=== PATIENT | male | born 1990 | race Caucasian/White ===

== ENCOUNTER 2024-09-17 16:18 | Emergency (ER) | payer OTHER, SELFPAY ==
[2024-09-17 16:38] VITALS: BP 107/70; PULSE 78; TEMP 36.8; O2SAT 98; BMI 31.9
--- NOTE | 2024-09-17 17:53 | ED.BACK1 ---
Documented by User: [email or web address] Sullivan 09/17/24 18:01 HPI HPI - Back Pain/Injury General Chief Complaint: Back Pain/Injury Stated Complaint: BACK PAIN Time Seen by Provider: 09/17/24 17:17 Source: patient History of Present Illness HPI Narrative: Patient is a 33-year-old male presents to the ER for evaluation of low back pain. Patient states he has thrown out his back. 2-3 other times in his life. Patient notes this is the most painful and he has tried to let it rest for 6 days without relief. He denies any anterior abdominal pain. Patient states he was taking down a tree and raking earlier in the week a day or 2 before symptoms started. He denies any fall or trauma he denies any fever or recent illness. He denies any bowel or bladder incontinence or saddle paresthesias. He reports a few episodes of pain radiating to his right leg and into his foot but this does not happen all the time. He has done physical therapy in the past and has had some imaging. He appears in no distress and gets relief with laying completely supine. He denies any chest pain or shortness of breath. Patient has been taking Tylenol at home without relief. He reports a appointment with his family doctor for later in the week which she called for last week when symptoms were more pronounced. MD elicited complaint: Reports back pain; Denies fall Pertinent past history: Reports prior back pain Severity: moderate Similar Symptoms Previously: Yes Quality: Reports sharp and aching Location: Reports lumbar spine (Mid lower back but not present on palpation.) Radiation: Reports right upper leg and right leg below the knee Exacerbating factors: Reports sitting upright and walking Relieving factors: Reports supine Context: while lifting, turning/twisting and bending Associated symptoms: denies other symptoms Treatments prior to arrival: cold therapy and acetaminophen Related Data Previous Rx's ?Medication ?Instructions ?Recorded cyclobenzaprine 10 mg tablet 10 mg PO TID PRN muscle spasm 3 09/17/24 days #9 tabs prednisone 20 mg tablet 40 mg (2 x 20 mg) PO ONCE 5 days 09/17/24 #10 tabs Allergies Allergy/AdvReac Type Severity Reaction Status Date / Time amoxicillin Allergy Severe Hives Verified 09/17/24 16:45 Opioid HPI Opioid Management Most Recent Opioid Data: No Data to Display Review of Systems ROS Constitutional Denies: fever or chills Eyes Denies: change in vision Ears, nose, mouth, and throat Denies: throat pain or neck pain Cardiovascular Denies: chest pain Respiratory Denies: shortness of breath Gastrointestinal Denies: abdominal pain Genitourinary Denies: painful urination or urinary frequency Musculoskeletal Reports: back pain; Denies: neck pain or extremity pain Integumentary/Breast Denies: rash PFSH PFSH Social History Little interest or pleasure in doing things: not at all Feeling down, depressed, or hopeless: not at all Exam Narrative Exam Narrative: Vital Signs reviewed and nurse's notes reviewed. The patient is not hypoxic. General: Alert, no acute distress, patient resting comfortably Skin: warm, intact, no pallor noted, no rash Head: Normocephalic, atraumatic Eye: Normal conjunctiva, EOMI Respiratory: No acute distress Abdomen: Normal bowel sounds, soft, nontender, no masses detected. No rebound, guarding, or rigidity noted. No midline pulsatile mass. Back: inspection of the back shows no obvious deformity, no swelling, no ecchymosis, contusion, abrasion, swelling, erythema, fluctuance or induration. No step offs or crepitus noted. No CVA tenderness noted bilaterally. Tenderness noted to lower paravertebral lumbar patient notes the pain is more deep and not palpable Straight leg raise on left is negative for radiculopathy but back pain is present Straight leg raise on right is radiculopathy but back pain is present.. Musculoskeletal: No deformity noted to bilateral lower extremities. no cyanosis or mottling noted. normal pulses at DP and PT 2+ bilaterally and symmetrically. Normal 5/5 strength at ankles with dorsiflexion and plantar flexion. Patient is able to ambulate. Normal sensation noted to the bilateral lower extremities. Neurological: alert and oriented x4, normal sensory and motor observed. DTR 2+ at patellar and achilles bilaterally. Negative clonus. Psychiatric: Cooperative Constitutional Vital Signs, click to edit/add: Last Vital Signs Temp 98.3 F 09/17/24 16:38 Pulse 78 09/17/24 16:38 Resp 16 09/17/24 16:38 BP 107/70 09/17/24 16:38 Pulse Ox 98 09/17/24 16:38 O2 Del Method Room Air 09/17/24 16:38 Course Vital Signs Vital signs: Vital Signs Temperature 98.3 F 09/17/24 16:38 Pulse Rate 78 09/17/24 16:38 Respiratory Rate 16 09/17/24 16:38 Blood Pressure 107/70 09/17/24 16:38 Pulse Oximetry 98 09/17/24 16:38 Oxygen Delivery Method Room Air 09/17/24 16:38 Temperature 98.3 F 09/17/24 16:38 Pulse Rate 78 09/17/24 16:38 Respiratory Rate 16 09/17/24 16:38 Blood Pressure 107/70 09/17/24 16:38 Pulse Oximetry 98 09/17/24 16:38 Oxygen Delivery Method Room Air 09/17/24 16:38 MDM - Back Pain/Injury MDM Narrative Medical decision making narrative: The patient was noted to be grossly neurologically intact. The patient was treated with adequate analgesia here in the emergency department. The patient vital signs were reviewed in the patient had no neurologic deficit noted. Due to the nature of the patient's history of present illness and the benign physical exam we do not feel that x-rays were clinically warranted. The patient is to followup in the next 3-5 days for repeat evaluation or to return to the emergency department if symptoms worsen or new symptoms develop. The patient will be discharged home with adequate analgesia. The patient has no other questions or concerns at this time. He does not have any radicular symptoms at this time and we discussed the need to return to the ER should symptoms worsen or red flag symptoms such as bowel or bladder incontinence or saddle paresthesias. Patient thankful verbalized plan to do stretching which she had learned from prior physical therapy. Discharge Plan Discharge Chief Complaint: Back Pain/Injury Clinical Impression: Lumbago Patient Disposition: Home, Self-Care Time of Disposition Decision: 17:53 Condition: Good Prescriptions / Home Meds: New cyclobenzaprine 10 mg tablet 10 mg PO TID PRN (Reason: muscle spasm) 3 Days Qty: 9 0RF prednisone 20 mg tablet 40 mg PO ONCE 5 Days Qty: 10 0RF Print Language: Slovenian Instructions: Acute Low Back Pain (ED) Additional Instructions: keep appt with your family doctor. Referrals: Chaparrita Henderson MD [Primary Care Provider] - 1 week Discharge Date/Time: 09/17/24 18:23 Documented by User: Kwadwo Lee MD 09/17/24 19:43 HPI HPI - Back Pain/Injury General Chief Complaint: Back Pain/Injury Stated Complaint: BACK PAIN Time Seen by Provider: 09/17/24 17:17 Related Data Previous Rx's ?Medication ?Instructions ?Recorded cyclobenzaprine 10 mg tablet 10 mg PO TID PRN muscle spasm 3 09/17/24 days #9 tabs prednisone 20 mg tablet 40 mg (2 x 20 mg) PO ONCE 5 days 09/17/24 #10 tabs Allergies Allergy/AdvReac Type Severity Reaction Status Date / Time amoxicillin Allergy Severe Hives Verified 09/17/24 16:45 Opioid HPI Opioid Management Most Recent Opioid Data: No Data to Display PFSH PFSH Social History Little interest or pleasure in doing things: not at all Feeling down, depressed, or hopeless: not at all Exam Constitutional Vital Signs, click to edit/add: Last Vital Signs Temp 98.3 F 09/17/24 16:38 Pulse 78 09/17/24 16:38 Resp 16 09/17/24 16:38 BP 107/70 09/17/24 16:38 Pulse Ox 98 09/17/24 16:38 O2 Del Method Room Air 09/17/24 16:38 Course Vital Signs Vital signs: Vital Signs Temperature 98.3 F 09/17/24 16:38 Pulse Rate 78 09/17/24 16:38 Respiratory Rate 16 09/17/24 16:38 Blood Pressure 107/70 09/17/24 16:38 Pulse Oximetry 98 09/17/24 16:38 Oxygen Delivery Method Room Air 09/17/24 16:38 Temperature 98.3 F 09/17/24 16:38 Pulse Rate 78 09/17/24 16:38 Respiratory Rate 16 09/17/24 16:38 Blood Pressure 107/70 09/17/24 16:38 Pulse Oximetry 98 09/17/24 16:38 Oxygen Delivery Method Room Air 09/17/24 16:38 MDM - Back Pain/Injury MDM Narrative Medical decision making narrative: The patient was noted to be grossly neurologically intact. The patient was treated with adequate analgesia here in the emergency department. The patient vital signs were reviewed in the patient had no neurologic deficit noted. Due to the nature of the patient's history of present illness and the benign physical exam we do not feel that x-rays were clinically warranted. The patient is to followup in the next 3-5 days for repeat evaluation or to return to the emergency department if symptoms worsen or new symptoms develop. The patient will be discharged home with adequate analgesia. The patient has no other questions or concerns at this time. He does not have any radicular symptoms at this time and we discussed the need to return to the ER should symptoms worsen or red flag symptoms such as bowel or bladder incontinence or saddle paresthesias. Patient thankful verbalized plan to do stretching which she had learned from prior physical therapy. I, Dr Lee, have reviewed the above progress note and course of action in the ER; agree with the above. I have personally gone over history and physical, and discussed disposition and treatment plan with the PA. Discharge Plan Discharge Chief Complaint: Back Pain/Injury Clinical Impression: Lumbago Patient Disposition: Home, Self-Care Time of Disposition Decision: 17:53 Condition: Good Prescriptions / Home Meds: New cyclobenzaprine 10 mg tablet 10 mg PO TID PRN (Reason: muscle spasm) 3 Days Qty: 9 0RF prednisone 20 mg tablet 40 mg PO ONCE 5 Days Qty: 10 0RF Print Language: Slovenian Instructions: Acute Low Back Pain (ED) Additional Instructions: keep appt with your family doctor. Referrals: Chaparrita Henderson MD [Primary Care Provider] - 1 week Discharge Date/Time: 09/17/24 18:23
[2024-09-17] MEDS: KETOROLAC TROMETHAMINE 60 MG/2 ML VIAL IM (18:09)
[2024-09-17] MEDS: CYCLOBENZAPRINE HCL 10 MG TABLET PO (18:09)
[2024-09-17] MEDS: PREDNISONE 20 MG TABLET 40 MG PO (18:09)
== END 2024-09-17 18:23 | disposition home or self-care (01) ==
PROVIDERS: Emergency Provider Emergency Medicine; PCP Student in an Organized Health Care Education/Training Program
DX: M54.50 Low back pain, unspecified (principal)
CPT/HCPCS: 96372; 99284; J1885; J7512

== ENCOUNTER 2024-09-22 13:01 | Emergency (ER) | payer OTHER, SELFPAY ==
[2024-09-22 13:12] VITALS: BP 117/83; PULSE 80; TEMP 37.1; O2SAT 98; BMI 35.5
--- OUTSIDE RECORDS SUMMARY | 2024-09-22 13:15 | XMS_ITS | CCD ---
Author Organization [facility] Care Team Providers Care Private Investigator Surveillance Name Role Phone HOUSE, DALJIT Primary Care Unavailable AZUCENA, IZA Latham Admitting Unavailable AZUCENA, IZA Latham Attending Unavailable BLANCHE, JEREMIAH Consulting Unavailable HOUSE, DALJIT Primary Care Unavailable LAWANDA, HERACLIO Admitting Unavailable LAWANDA, HERACLIO Attending Unavailable LAWANDA, HERACLIO Consulting Unavailable HOUSE, DALJIT Primary Care Unavailable HAY, DARVIN Admitting Unavailable HAY, DARVIN Attending Unavailable HAY, DARVIN Consulting Unavailable HOUSE, DALJIT Primary Care Unavailable HAY, DARVIN Admitting Unavailable HAY, DARVIN Attending Unavailable HAY, DARVIN Consulting Unavailable HOUSE, DALJIT Primary Care Unavailable LE, BRETT Admitting Unavailable LE, BRETT Attending Unavailable LE, BRETT Consulting Unavailable HOUSE, DALJIT Admitting Unavailable HOUSE, DALJIT Attending Unavailable HOUSE, DALJIT Primary Care Unavailable HOUSE, DALJIT Consulting Unavailable HOUSE, DALJIT Admitting Unavailable HOUSE, DALJIT Attending Unavailable HOUSE, DALJIT Primary Care Unavailable REINECK, IZA Latham Admitting Unavailable REINECK, IZA Latham Attending Unavailable REINECK, IZA Latham Consulting Unavailable OG, ARI Orellana Consulting Unavailable MARCEL NGUYEN Consulting Unavailable HOUSE, DALJIT Primary Care Unavailable HAY, DARVIN Admitting Unavailable HAY, DARVIN Attending Unavailable ANDREW KEYS Consulting Unavailable House Daljit DE LEÓN Primary Care Provider Chaparrita Henderson DO Primary Care Provider Chaparrita Henderson DO Primary Care Provider DO Konstantin Khan Emergency Provider MD Chaparrita Henderson Primary Care Provider Konstantin Khan Attending Unavailable Konstantin Khan Admitting Unavailable Chaparrita Henderson Primary Care Unavailable Yonley DO, Chaparrita L Primary Care Provider [phone] JEFE OSBORNE Attending Unavailable YONLEY, CHAPARRITA L Primary Care Unavailable YONLEY, CHAPARRITA L Primary Care Unavailable LEDIANA, GODUNI Referring Unavailable YONLEY, CHAPARRITA L Referring Unavailable YONLEY, CHAPARRITA L Primary Care Unavailable LEDIANA, GODUNI Referring Unavailable YONLEY, CHAPARRITA L Primary Care Unavailable LEDIANA, GODUNI Referring Unavailable YONLEY, CHAPARRITA L Primary Care Unavailable LEDIANA, GODUNI Referring Unavailable YONLEY, CHAPARRITA L Primary Care Unavailable JEFE OSBORNE Attending Unavailable YONLEY, CHAPARRITA L Primary Care Unavailable Pepeey Daniele CABANChaparrita L Primary Care Provider Daniele Henderson MDssica Chantal Unavailable TEOFILO GALO Attending Unavailable YONLEY, CHAPARRITA L Primary Care Unavailable LILLI, ANDREW Harris Attending Unavailable YONLEY, CHAPARRITA L Referring Unavailable YONLEY, CHAPARRITA L Primary Care Unavailable LILLI, ANDREW Harris Attending Unavailable YONLEY, CHAPARRITA L Referring Unavailable YONLEY, CHAPARRITA L Primary Care Unavailable LILLI, ANDREW Harris Attending Unavailable YONLEY, CHAPARRITA L Referring Unavailable YONLEY, CHAPARRITA L Primary Care Unavailable LILLI, ANDREW Harris Attending Unavailable YONLEY, CHAPARRITA L Referring Unavailable YONLEY, CHAPARRITA L Primary Care Unavailable LILLI, ANDREW Harris Attending Unavailable YONLEY, CHAPARRITA L Referring Unavailable YONLEY, CHAPARRITA L Primary Care Unavailable LILLI, ANDREW Harris Attending Unavailable YONLEY, CHAPARRITA L Referring Unavailable YONLEY, CHAPARRITA L Primary Care Unavailable LILLI, ANDREW Harris Attending Unavailable YONLEY, CHAPARRITA L Referring Unavailable YONLEY, CHAPARRITA L Primary Care Unavailable LILLI, ANDREW Harris Attending Unavailable YONLEY, CHAPARRITA L Referring Unavailable YONLEY, CHAPARRITA L Primary Care Unavailable LILLI, ANDREW Harris Attending Unavailable YONLEY, CHAPARRITA L Referring Unavailable YONLEY, CHAPARRITA L Primary Care Unavailable LILLIANDREW Attending Unavailable YONLEY, CHAPARRITA L Referring Unavailable YONLEY, CHAPARRITA L Primary Care Unavailable LILLI, ANDREW W Attending Unavailable YONLEY, CHAPARRITA L Referring Unavailable YONLEY, CHAPARRITA L Primary Care Unavailable LILLI, ANDREW W Attending Unavailable YONLEY, CHAPARRITA L Referring Unavailable YONLEY, CHAPARRITA L Primary Care Unavailable LILLI, ANDREW W Attending Unavailable YONLEY, CHAPARRITA L Referring Unavailable YONLEY, CHAPARRITA L Primary Care Unavailable LILLI, ANDREW W Attending Unavailable YONLEY, CHAPARRITA L Referring Unavailable YONLEY, CHAPARRITA L Primary Care Unavailable LILLI, ANDREW W Attending Unavailable YONLEY, CHAPARRITA L Referring Unavailable YONLEY, CHAPARRITA L Primary Care Unavailable LILLI, ANDREW W Attending Unavailable YONLEY, CHAPARRITA L Referring Unavailable YONLEY, CHAPARRITA L Primary Care Unavailable LILLI, ANDREW W Attending Unavailable YONLEY, CHAPARRITA L Referring Unavailable YONLEY, CHAPARRITA L Primary Care Unavailable LILLI, ANDREW W Attending Unavailable YONLEY, CHAPARRITA L Referring Unavailable YONLEY, CHAPARRITA L Primary Care Unavailable LILLI, ANDREW W Attending Unavailable YONLEY, CHAPARRITA L Referring Unavailable YONLEY, CHAPARRITA L Primary Care Unavailable LILLI, ANDREW W Attending Unavailable YONLEY, CHAPARRITA L Referring Unavailable YONLEY, CHAPARRITA L Primary Care Unavailable LILLI, ANDREW W Attending Unavailable YONLEY, CHAPARRITA L Referring Unavailable YONLEY, CHAPARRITA L Primary Care Unavailable LILLI, ANDREW W Attending Unavailable YONLEY, CHAPARRITA L Referring Unavailable YONLEY, CHAPARRITA L Primary Care Unavailable LILLI, ANDREW W Attending Unavailable YONLEY, CHAPARRITA L Referring Unavailable YONLEY, CHAPARRITA L Primary Care Unavailable LILLI, ANDREW W Attending Unavailable YONLEY, CHAPARRITA L Referring Unavailable YONLEY, CHAPARRITA L Primary Care Unavailable LILLI, ANDREW W Attending Unavailable YONLEY, CHAPARRITA L Referring Unavailable YONLEY, CHAPARRITA L Primary Care Unavailable LILLI, ANDREW W Attending Unavailable YONLEY, CHAPARRITA L Referring Unavailable YONLEY, CHAPARRITA L Primary Care Unavailable LILLI, ANDREW Harris Attending Unavailable YONLEY, CHAPARRITA L Referring Unavailable YONLEY, CHAPARRITA L Primary Care Unavailable LILLI, ANDREW W Attending Unavailable YONLEY, CHAPARRITA L Referring Unavailable YONLEY, CHAPARRITA L Primary Care Unavailable LILLIANDREW SMALLS Attending Unavailable YONLEY, CHAPARRITA L Referring Unavailable YONLEY, CHAPARRITA L Primary Care Unavailable LILLIANDREW SMALLS Attending Unavailable YONLEY, CHAPARRITA L Referring Unavailable YONLEY, CHAPARRITA L Primary Care Unavailable LILLIANDREW SMALLS Attending Unavailable YONLEY, CHAPARRITA L Referring Unavailable YONLEY, CHAPARRITA L Primary Care Unavailable LILLIANDREW SMALLS Attending Unavailable YONLEY, CHAPARRITA L Referring Unavailable YONLEY, CHAPARRITA L Primary Care Unavailable LILLI, ANDREW Harris Attending Unavailable YONLEY, CHAPARRITA L Referring Unavailable YONLEY, CHAPARRITA L Primary Care Unavailable Allergies Allergy Classification Reported Allergen(s) Allergy Type Date of Onset Reaction(s) Facility (3 sources) Amoxicillin; Translations: [AMOXICILLIN] Drug Allergy 4 Hives [facility] Repository (1 source) Polymyxin B Drug allergy (disorder) 4 [facility] Repository (15 sources) Amoxicillin Drug Allergy 5 Hives, Unknown [facility] (1 source) Amoxicillin Drug Allergy 3 [facility] Repository (4 sources) lamoTRIgine; Translations: [LAMOTRIGINE] Drug Allergy 3 Palpitations, Other: See Comments [facility] (3 sources) Polymox; Translations: [POLYMOX] Drug Allergy 7 Unknown [facility] Medications Current Medications Medication Drug Class(es) Dates Sig (Normalized) Sig (Original) baclofen 10 mg oral tablet (10 sources) gamma-Aminobutyri c Acid-ergic Agonist Start: 01-16-2022 baclofen (LIORESAL) 10 MG tablet 1 or 2 tablets 3 times a day as needed for spasm 30 tablet 0 01/16/2022 Active 24 hr buPROPion hydrochloride 150 mg extended release oral tablet (4 sources) Aminoketone Start: 09-15-2023 take 1 tablet by mouth once daily in the morning buPROPion XL (WELLBUTRIN XL) 150 mg 24 hr tablet Indications: Acute macular neuroretinopathy Take 150 mg by mouth every morning. 09/15/2023 Active Start: 09-30-2022 take 1 tablet by hosea th once daily in the morning buPROPion (WELLBUTRIN XL) 150 MG extended release tablet Take 1 tablet by mouth every morning 30 tablet 2 09/30/2022 Active End: 01-08-2022 buPROPion (WELLBUTRIN XL) 30 0 MG XL tablet Take 350 mg by mouth every morning. 0 01/08/2022 Discontinued (LIST CLEANUP) busPIRone hydrochloride 5 mg oral tablet (1 source) End: 01-08-2022 take 1 tablet by mouth three times daily as needed busPIRone (BUSPAR) 5 MG tablet Take 5 mg by mouth 3 times daily as needed. 0 01/08/2022 Discontinued (LIST CLEANUP) cholecalciferol 0.05 mg oral capsule (1 source) Vitamin D Cholecalciferol (VITAMIN D) 50 MCG (1999) CAPS capsule Take by mouth 0 Active cyclobenzaprine hydrochloride 5 mg oral tablet (3 sources) Muscle Relaxant Start: 01-08-2022 End: 01-18-2022 take 1 tablet by mouth twice daily as needed for muscle spasms cyclobenzaprine (FLEXERIL) 5 MG tablet Take 1 tablet by mouth 2 times daily as needed for Muscle spasms 20 tablet 0 01/08/2022 01/18/2022 Active Start: 01-08-2022 End: 01-08-2022 take 1 dose by mouth once 10 mg, Oral, ONCE, 1 dose, O n Tiesha 01/08/22 at 0030 FLUoxetine 20 mg oral capsule (3 sources) Serotonin Reuptake Inhibitor Start: 09-15-2023 take 1 capsule by mouth once FLUoxetine (PROZAC) 20 mg capsule Indications: Acute macular neuroretinopathy Take 1 capsule by mouth every afternoon. 09/15/2023 Active Start: 09-30-2022 take 1 capsule by mo [facility] once daily FLUoxetine (PROZAC) 40 MG capsule Take 1 capsule by mouth daily 30 capsule 2 09/30/2022 Active ibuprofen 800 mg oral tablet (3 sources) Nonsteroidal Anti-inflammatory Drug Start: 07-28-2023 take 1 tablet by mouth three times daily as needed for pain ibuprofen (ADVIL;MOTRIN) 800 MG tablet Take 1 tablet by mouth 3 times daily as needed for Pain 90 tablet 1 07/28/2023 Active Start: 06-05-2023 take 800 mg by mouth three times daily Ibuprofen Active 800 MG PO Three times daily June 05, 2023 12:00am Start: 08-08-2019 End: 10-28-2019 Ibuprofen Discontinued 600 M G PO Every 6 hours August 08, 2019 12:00am October 27, 2019 11:50pm do not exceed 4 doses in a 24 hour period ketorolac tromethamine 10 mg oral tablet (14 sources) Nonsteroidal Anti-inflammatory Drug, Cyclooxygenase Inhibitor Start: 06-17-2022 take 1 tablet by mouth every eight hours as needed for pain ketorolac (TORADOL) 10 MG tablet Take 1 tablet by mouth every 8 hours as needed for Pain 30 tablet 1 06/17/2022 Active Start: 01-16-2022 ketorolac (TOR ADOL) injection 30 mg Start: 01-16-2022 take 1 tablet by hosea th every eight hours as needed for pain ketorolac (TORADOL) 10 MG tablet Take 1 tablet by mouth every 8 hours as needed for Pain 15 tablet 0 01/16/2022 Active take 1 tablet by hosea th every six hours as needed keTORolac (TORADOL) 10 mg tablet Indications: Acute macular neuroretinopathy Take 10 mg by mouth every 6 hours as needed. Active loratadine 10 mg oral tablet (1 source) Start: 11-10-2020 take 1 tablet by mouth once daily Loratadine (Claritin) 10 mg tablet Active 10 MG PO Daily November 09, 2020 11:00pm LORazepam 0.5 mg oral tablet (2 sources) Benzodiazepine Start: 10-28-2019 End: 10-25-2020 take 0.5 mg by mouth once daily Lorazepam Active 0.5 MG PO Daily October 24, 2020 11:00pm Multiple Vitamins-Minerals (MENS ONE DAILY PO) (1 source) Multiple Vitamins-Mineral s (MENS ONE DAILY PO) Take by mouth 0 Active naproxen 375 mg oral tablet (13 sources) Nonsteroidal Anti-inflammatory Drug Start: 01-08-2022 take 1 tablet by mouth in the morning naproxen (NAPROSYN) 375 MG tablet Take 1 tablet by mouth in the morning and 1 tablet in the evening. Take with meals. 20 tablet 1 01/08/2022 Active Start: 01-08-2022 take 1 dose by mouth once 375 mg, Oral, ONCE, 1 dose, On Tiesha 01/08/22 at 0030 olopatadine 2 mg/ml ophthalmic solution (1 source) Histamine-1 Receptor Inhibitor Start: 11-10-2020 take 1 drop(s) into the eye(s) once daily Olopatadine (Pataday Once Daily Relief) 0.2 % drops Active 1 DROPS EYE-BOTH Daily 2.5 November 09, 2020 11:00pm [place]-3 Fatty Acids (FISH OIL PO) (1 source) [place]-3 Fatty Ac ids (FISH OIL PO) Take by mouth 0 Active polymyxin b 62975 unt/ml / trimethoprim 1 mg/ml ophthalmic solution (1 source) Dihydrofolate Reductase Inhibitor Antibacterial, Polymyxin-class Antibacterial Start: 11-10-2020 Polymyxin B Sulf-Trimethoprim (Polytrim) 10,000 unit- 1 mg/mL drops Active 1 DROPS EYE-BOTH Q3H 10 7 November 09, 2020 11:00pm while awake; do not exceed 6 doses in 24 hours promethazine hydrochloride 25 mg oral tablet (1 source) Phenothiazine Start: 06-05-2023 take 25 mg by mouth three times daily Promethazine Active 25 MG PO Three times daily June 05, 2023 6:26pm sertraline 50 mg oral tablet (1 source) Serotonin Reuptake Inhibitor End: 01-08-2022 take 1 tablet by mouth once daily sertraline (ZOLOFT) 50 MG tablet Take 50 mg by mouth daily. 0 01/08/2022 Discontinued (LIST CLEANUP) traZODone hydrochloride 50 mg oral tablet (3 sources) Serotonin Reuptake Inhibitor Start: 06-30-2023 take 1-2 tablets by mouth once daily for sleep traZODone (DESYREL) 50 mg tablet Indications: Acute macular neuroretinopathy take 1 TO 2 tablets by mouth nightly if needed for sleep 06/30/2023 Active Completed/Discontinued Medications Medication Drug Class(es) Dates Sig (Normalized) Sig (Original) aspirin 81 mg chewable tablet (1 source) Platelet Aggregation Inhibitor, Nonsteroidal Anti-inflammatory Drug Start: 10-13-2022 End: 10-13-2022 aspirin chewable tablet 324 mg benoxinate hydrochloride 4 mg/ml / fluorescein sodium 3 mg/ml ophthalmic solution (1 source) Diagnostic Dye Start: 10-06-2023 End: 10-07-2023 fluorescein-benoxi rolanda 0.3-0.4 % 1 Drop (FLURESS) clindamycin 300 mg oral capsule (1 source) Lincosamide Antibacterial Start: 08-08-2019 End: 10-28-2019 take 300 mg by mouth four times daily Clindamycin Hcl Discontinued 300 MG PO Four times daily August 08, 2019 12:00am October 27, 2019 11:50pm meclizine hydrochloride 25 mg oral tablet (1 source) Antiemetic Start: 11-13-2019 End: 10-25-2020 take 25 mg by mouth three times daily Meclizine Discontinued 25 MG PO Three times daily November 12, 2019 11:00pm October 25, 2020 7:53am 2 ml orphenadrine citrate 30 mg/ml injection (1 source) Muscle Relaxant Start: 01-16-2022 End: 01-16-2022 orphenadrine (NORFLEX) injection 60 mg Start: 01-16-2022 End: 01-16-2022 orphenadrine (NORFLEX) injec tion 60 mg PARoxetine hydrochloride 10 mg oral tablet (1 source) Serotonin Reuptake Inhibitor Start: 10-25-2020 End: 11-15-2020 take 10 mg by mouth once daily Paroxetine Hcl Discontinued 10 MG PO Daily October 24, 2020 11:00pm November 15, 2020 9:28am phenylephrine hydrochloride 25 mg/ml ophthalmic solution (1 source) alpha-1 Adrenergic Agonist Start: 10-06-2023 End: 10-07-2023 PHENYLephrine 2.5 % 1 Drop (AK-DILATE, RICHIE-SYNEPHRINE) proparacaine hydrochloride 5 mg/ml ophthalmic solution (1 source) Local Anesthetic Start: 10-06-2023 End: 10-07-2023 proparacaine 0.5 % 1 Drop (ALCAINE) tropicamide 10 mg/ml ophthalmic solution (1 source) Anticholinergic Start: 10-06-2023 End: 10-07-2023 tropicamide 1 % 1 Drop (MYDRIACYL) Problems Active Problems Problem Classification Problem Date Documented Date Episodic/Chronic Abdominal pain (4 sources) Unspecified abdominal pain; Translations: [UNSPECIFIED ABDOMINAL PAIN] Onset: 03-02-2019 Episodic Acute and chronic tonsillitis (1 source) Peritonsillar abscess; Translations: [Peritonsillar abscess] 08-08-2019 Episodic Anxiety disorders (14 sources) Panic disorder [episodic paroxysmal anxiety]; Translations: [Fear of other medical care] Onset: 01-21-2017 10-28-2019 Chronic Anxiety disorders (1 source) Obsessive-compulsive disorder, unspecified; Translations: [OBSESSIVE-COMPULSIV E D/O UNSPEC] Onset: 05-05-2019 Blindness and vision defects (1 source) Blurring of visual image; Translations: [Other visual disturbances] 06-05-2023 Episodic Conditions associated with dizziness or vertigo (1 source) Dizziness; Translations: [Dizziness and giddiness] 11-13-2019 Episodic Disorders usually diagnosed in infancy childhood or adolescence (15 sources) Asperger's syndrome; Translations: [Asperger's disorder] Onset: 01-21-2017 03-01-2022 Chronic Genitourinary symptoms and ill-defined conditions (1 source) Hematuria, unspecified; Translations: [HEMATURIA UNSPECIFIED] Onset: 03-06-2019 Episodic Headache; including migraine (3 sources) Migraine; Translations: [Migraine, unspecified, not intractable, without status migrainosus] Onset: 06-05-2023 06-05-2023 Chronic Headache; including migraine (1 source) Headache; Translations: [Headache] 06-05-2023 Episodic Inflammation; infection of eye (except that caused by tuberculosis or sexually transmitteddisease) (1 source) Bacterial conjunctivitis; Translations: [Unspecified conjunctivitis] 11-10-2020 Episodic Mood disorders (14 sources) Recurrent major depressive episodes, moderate ; Translations: [Major depressive disorder, recurrent, moderate] Onset: 01-21-2017 03-01-2022 Chronic Other lower respiratory disease (1 source) Pleuritic pain; Translations: [Pleurodynia] Episodic Other upper respiratory disease (4 sources) Other seasonal allergic rhinitis; Translations: [OTHER SEASONAL ALLERGIC RHINITIS] Onset: 11-13-2018 Chronic Other upper respiratory disease (2 sources) Seasonal allergy; Translations: [Other seasonal allergic rhinitis] 11-10-2020 Chronic Other upper respiratory disease (1 source) Seasonal allergic rhinitis; Translations: [Other seasonal allergic rhinitis] 10-25-2020 Chronic Other upper respiratory infections (1 source) Pharyngitis; Translations: [Acute pharyngitis, unspecified] 08-08-2019 Episodic Personality disorders (1 source) Borderline personality disorder; Translations: [Borderline personality disorder] Onset: 03-08-2023 03-08-2023 Chronic Residual codes; unclassified (1 source) Other hypersomnia; Translations: [Other hypersomnia] Onset: 12-13-2022 Chronic Residual codes; unclassified (1 source) Other sleep disorders; Translations: [Other sleep disorders] Onset: 12-13-2022 Chronic Retinal detachments; defects; vascular occlusion; and retinopathy (5 sources) Retinal ischemia; Translations: [Other specified retinal disorders] Onset: 06-16-2023 Chronic Spondylosis; intervertebral disc disorders; other back problems (2 sources) Acute low back pain; Translations: [Acute bilateral low back pain without sciatica] Episodic Viral infection (1 source) Viral disease; Translations: [Viral infection, unspecified] 08-08-2019 Episodic Past or Other Problems Problem Classification Problem Date Documented Da te Episodic/Chronic Administrative/social admission (1 source) Problems of adjustment to life-cycle transitions; Translations: [Problems of adjustment to life-cycle transitions] Onset: 03-27-2022 Episodic Cardiac dysrhythmias (5 sources) Tachycardia, unspecified; Translations: [TACHYCARDIA UNSPECIFIED] Onset: 12-22-2018 Episodic Nonspecific chest pain (2 sources) Chest pain; Translations: [Chest pain, unspecified] Onset: 10-13-2022 Episodic Other lower respiratory disease (1 source) Dyspnea, unspecified; Translations: [Dyspnea, unspecified] Onset: 12-13-2022 Episodic Other lower respiratory disease (1 source) Pleurodynia; Translations: [Pleurodynia] Onset: 10-13-2022 Episodic Results Test Name Value Interpretation Reference Range Facility [facility] 03-10-2024 [facility] Telephone (OPHLorenza) ALBERTO GERMAIN ([id number]) 1990 Date Time Provider Department 03/10/24 [facility] During your visit today, we recorded the following information about you: Kartik, Carly 03/10/2024 2:53 PM Signed Alberto Germain [id number] (home) Dr. 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 This was given to you in the [place] folder last week and also scanned in pt chart. You can call the pt back or Dr. Henderson on her cell at [phone]. LV 10/06/23 No FV scheduled Assessment AND Plan Camilla Camacho MD filed at 10/06/2023 4:02 PM Status: Signed New patient referred by Lola Galo PA-C. Previously was receiving care in [place], [place]. 1. Resolving Acute Macular Neuroretinopathy, both eyes - Acutely developed bilateral central vision loss early 06/2023; prior to this, he had more minor visual symptoms; his symptoms have since very gradually improved - Describes/draws his scotomas as a paracentral broken ring right eye and a central [place] left eye (contains a pinhole through which he can see); denies peripheral vision changes - Had preceding COVID-19 in 05/29, more recent episode of vomiting; denies HTN previously or when he went to the ED for his visual symptoms - saw outside ophthalmology, was found to have numerous cotton wool spots initially; there was concern for ischemia and 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 - had systemic testing: normal echo, MRI Brain (other than sequelae of migraine), negative autoimmune labs (APLS, Anti-nuclear antibody), negative HIV, normal A1c, normal clotting factors, normal SPEP - OCT mac with patchy areas of EZ attenuation and middle retinal thinning right eye > left eye (seems somewhat improved compared to prior outside scans) - OCT nerve with split inf RNFL bundle (otherwise normal RNFL) both eyes; patches of GCL thinning right eye > left eye - IR shows AMN - 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 > left eye - fluorescein angiography attempted, but patient had episode of syncope - OCT-A with irregularly enlarged deep LIZETTE with additional patches of deep plexus loss right eye > left eye - Differential diagnosis includes AMN > PAMM (due to deeper involvement on OCT, possibly related to COVID), Purtcher (doubt) , subtle RAOs; no signs of uveitic/vasculitic cause - No intervention at this time, may gradually continue to improve - Follow-up in 3 month for [facility] visual [facility] (HVF) 24-2 both eyes, OCT mac, OCT-A, fluorescein angiography, IR photos --- I have confirmed and edited as necessary the relevant ophthalmic history, ROS, and the clinical/neuro exam findings as obtained by others. I have seen and examined this patient. I have discussed the case and the management of this patient's care with the Resident/Fellow, if applicable. I also have reviewed and agree with the assessment and plan as stated above and agree with all of its relevant components on 10/06/2023 Camilla Camacho MD Professor of Ophthalmology [facility] [employer] Carly Verdugo 03/13/2024 12:00 PM Signed We have no real data to help us with this question. Certainly it is either an inflammatory or vascular condition so steroids may help if there are no contraindications. There is not enough data to recommend it in patients who we see with this issue. Carly Verdugo 03/13/2024 12:00 PM Signed Called pt to let him know. He said the article he was reading is freshly new in regards to his exact condition. This is from July 2023. He wanted to know if you could go over this article attached and discuss with him if it is possible? https://www.frontiers in.org/journals/medic ine/articles/10.3389/ fmed.2024.332681- 2/full Carly Verdugo 03/13/2024 1:35 PM Signed Called pt back he wants to know if there is any corticosteroid operation that can be done? I am familiar with this article as well as other case reports along the same lines. AMN has no known treatment even when not related to COVID. Steroids have been tried with limited success. Carly oRdriguez 03/14/2024 9:10 AM Signed Called and left for pt to let him know. It is not an operation it is taking steroid pills. But this late into the disease process it would not work. Would only work during acute episode PK Allergies As of Date: 03/10/2024 Noted Allergy Reaction AMOXICILLIN 01/06/2017 16 - Unknown POLYMOX 01/06/2017 16 - Unknown LAMOTRIGINE 05/06/2023 14 - Other: See Comments Comments: Worse at night to where felt as if heart would stop. Date Reviewed: 10/06/2023 Reviewed by: Zack (more content not included)... Normal [facility] FUNDUS PHOTOS OU (BOTH EYES) on 10-06-2023 [facility] Radiology Study observation (narrative) [facility] OCT ANGIOGRAPHY OU (BOTH EYE S)on 10-06-2023 [facility] Radiology Study observation (narrative) [facility] OCT MACULA CIRRUS OU (BOTH E YES)on 10-06-2023 [facility] Radiology Study observation (narrative) [facility] OCT OPTIC NERVE CIRRUS OU (B OTH EYES)on 10-06-2023 [facility] Radiology Study observation (narrative) [facility] Cryoglobulinson 08-17-2023 Cryoglobulins 0 mg/dL Normal 0-10 [facility] Comment on above: Performed By: #### A VISCS #### [facility] [address] [place] [address] Tire Wrapper: Luke Blackburn MD #### GLYHGB, IGM, HIVCMB, CRYO #### [facility] [address] [place], [place] [id number] Tire Wrapper: Luis Carlos Reece MD Viscosity, Serumon 4 Viscosity, Serum 1.14 cP Normal <=1.50 [facility] Comment on above: Result Comment: (NOT E) INTERPRETIVE INFORMATION: Viscosity, Serum Increased viscosity is associated with disorders such as monoclonal gammopathy, macroglobulinemia, and multiple myeloma. Significantly elevated viscosity (>3.0 cP) is associated with clinical symptoms of hyperviscosity syndrome. This test was developed and its performance characteristics determined by [facility]. It has not been cleared or approved by the [place] Food and Drug Administration. This test was performed in a CLIA certified laboratory and is intended for clinical purposes. Performed By: [address] [address] Jewelsmith: Addy Cooper MD, PhD CLIA Number: [id number] Performed By: #### A VISCS #### [facility] [address] [place] [address] Tire Wrapper: Luke Blackburn MD #### GLYHGB, IGM, HIVCMB, CRYO #### [address] [address] Tire Wrapper: Luis Carlos Reece MD HIV Ag/Abon 08-13-2023 HIV Ag/Ab Non-Reactive Normal NR [facility] Comment on above: Performed By: #### A VISCS #### [address] [address] Tire Wrapper: Luke Blackburn MD #### GLYHGB, IGM, HIVCMB, CRYO #### [address] [address] Tire Wrapper: Luis Carlos Reece MD Hemoglobin A1Con 08-13-2023 Glucose [Mass/Vol] 85 mg/dL Normal [facility] Comment on above: Result Comment: The ADA and AACC recommend providing the estimated average glucose result to permit better patient understanding of their HBA1c result. Performed By: #### A VISCS #### [address] [address] Tire Wrapper: Luke Blackburn MD #### GLYHGB, IGM, HIVCMB, CRYO #### [address] [phone] Tire Wrapper: Luis Carlos Reece MD HbA1c (Bld) [Mass fraction] 4.6 % Normal 4.0-6.0 [facility] Comment on above: Performed By: #### A VISCS #### [address] [address] Tire Wrapper: Luke Blackburn MD #### GLYHGB, IGM, HIVCMB, CRYO #### [facility] [address] [place], [place] [address] Tire Wrapper: Luis Carlos Reece MD IgMon 08-13-2023 IgM [Mass/Vol] 180 mg/dL Normal 40-230 [facility] Comment on above: Performed By: #### A VISCS #### [facility] [address] [place] [address] Tire Wrapper: Luke Blackburn MD #### GLYHGB, IGM, HIVCMB, CRYO #### [facility] [employer] [facility] [address] [place] [address] Tire Wrapper: Luis Carlos Reece MD Hemoglobin A1Con 08-12-2023 Average glucose Estimated from glycated hemoglobin (Bld) [Mass/Vol] 85 mg/dL [facility] Comment on above: The ADA and AACC rec ommend providing the estimated average glucose result to permit better patient understanding of their HBA1c result. HbA1c (Bld) [Mass fraction] 4.6 % 4.0 - 6.0 % [facility] MRI BRAIN W WO CONTRASTon MRI BRAIN W WO CONTRAST EXAM: MRI BRAIN W WO CONTRAST CLINICAL INDICATION: Retinal ischemia COMPARISON: None TECHNIQUE/PROTOCOL: Standard pre and postcontrast protocol brain and orbits MRI performed. CONTRAST: 20 mL of MultiHance. FINDINGS: The globes, optic nerves, and lacrimal glands are normal in morphology. Lenses are present and well-aligned. Intraconal and extraconal structures as well as the extraocular muscles are symmetric and normal. Normal intraorbital vasculature. No abnormal orbital enhancement. No restricted diffusion, extra-axial fluid collection, hydrocephalus, midline shift, or other mass effect. Intracranial flow voids are maintained. Normal midline structures. Several punctate hyperintense T2/FLAIR subcortical white matter foci are nonspecific. 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 No abnormal parenchymal, leptomeningeal, or dural enhancement. Normal marrow signal. Nonspecific prominent nasopharyngeal/adenoi porsha soft tissue. Mild scattered paranasal sinus mucosal thickening. Trace bilateral mastoid effusions. IMPRESSION: 1. No intraorbital abnormality. 2. No acute intracranial process or abnormal enhancement. 3. Several punctate hyperintense T2/FLAIR subcortical white matter foci are nonspecific and could reflect sequela of migraine headaches. Interpreted by: Alicia Ricketts DO Signed by: Alicia Ricketts DO 06/16/23 Final result Normal [facility] Prot. Electroph, Blon 2023 Pathologist Review: ELECTRONICALLY SIGNED. AUDRA MCKENZIE M.D. Normal [facility] Comment on above: Performed By: #### A VISCS #### [facility] [address] [place] [address] Tire Wrapper: Luke Blackburn MD #### GLYHGB, IGM, HIVCMB, CRYO #### [address] [address] Tire Wrapper: Luis Carlos Reece MD Prot. Elect-Interp NORMAL ELECTROPHORETIC PATTERN Normal [facility] Comment on above: Performed By: #### A VISCS #### [facility] [address] [place] [address] Tire Wrapper: Luke Blackburn MD #### GLYHGB, IGM, HIVCMB, CRYO #### [address] [address] Tire Wrapper: Luis Carlos Reece MD T.Pall confirm,TPPAon 2023 T.Pall confirm,TPPA Non-Reactive Normal NR [facility] Comment on above: Performed By: #### A VISCS #### [facility] [address] [place] [address] Tire Wrapper: Luke Blackburn MD #### GLYHGB, IGM, HIVCMB, CRYO #### [facility] [place] [address] [place] [address] Tire Wrapper: Luis Carlos Reece MD ANDREZ Screenon 06-14-2023 ANDREZ Screen Negative Normal NEG [facility] Comment on above: Performed By: #### A VISCS #### [facility] [address] [place], [place] [id number] Tire Wrapper: Luke Blackburn MD #### GLYHGB, IGM, HIVCMB, CRYO #### [address] [phone] Tire Wrapper: Luis Carlos Reece MD Anti-dsDNA 1.7 IU/mL Normal <10.0 [facility] Comment on above: Result Comment: Reference Range: <10.0 Negative 10.0-15.0 Equivocal >15.0 Positive Performed By: #### A VISCS #### [facility] [address] [place], [place] [phone] Tire Wrapper: Luke Blackburn MD #### BRAXTONHGB, IGM, HIVCMB, CRYO #### [address] [address] Tire Wrapper: Luis Carlos Reece MD HILARIO Screen 0.3 U/mL Normal <0.7 [facility] Comment on above: Result Comment: Reference Range: <0.7 Negative 0.7-1.0 Equivocal >1.0 Positive HILARIO Screen includes U1RNP,RNP70,Sm,Ro(SS-A),La(SS-B),CENP,Scl-70,Jesenia-1 Performed By: #### A VISCS #### [facility] [address] [place], [place] [phone] Tire Wrapper: Luke Blackburn MD #### GLYHGB, IGM, HIVCMB, CRYO #### [place] [phone] Tire Wrapper: Luis Carlos Reece MD Cardiolipin Ab G,A,Mon 06-14 Anticardiolipin IgA 4.3 APL Normal 0.0-14.0 [facility] Comment on above: Result Comment: Reference Range: <14.0 Negative 14.0-20.0 Equivocal >20.0 Positive When results are Equivocal, it is recommended to retest after 4-6 weeks. Performed By: #### A VISCS #### [facility] [address] [place] [phone] Tire Wrapper: Luke Blackburn MD #### GLYHGB, IGM, HIVCMB, CRYO #### [facility] [address] [place] [address] [phone] Tire Wrapper: Luis Carlos Reece MD Anticardiolipin IgG 3.4 GPL Normal 0.0-10.0 [facility] Comment on above: Result Comment: Reference Range: <10.0 Negative 10.0-40.0 Equivocal >40.0 Positive Performed By: #### A VISCS #### [facility] [address] [place] [address] Tire Wrapper: Luke Blackburn MD #### GLYHGB, IGM, HIVCMB, CRYO #### [facility] [address] [place] [address] [phone] Tire Wrapper: Luis Carlos Reece MD Anticardiolipin IgM 9.9 MPL Normal 0.0-10.0 [facility] Comment on above: Result Comment: Reference Range: <10.0 Negative 10.0-40.0 Equivocal >40.0 Positive Performed By: #### A VISCS #### [facility] [address] [place] [address] Tire Wrapper: Luke Blackburn MD #### GLYHGB, IGM, HIVCMB, CRYO #### [facility] [address] [place] [address] [phone] Tire Wrapper: Luis Carlos Reece MD Prot. Electroph, Blon 2023 Albumin [Mass/Vol] 5.0 g/dL Normal 3.2-5.2 [facility] Comment on above: Performed By: #### A VISCS #### [facility] [address] [place] [address] Tire Wrapper: Luke Blackburn MD #### GLYHGB, IGM, HIVCMB, CRYO #### [facility] [address] [place] [address] [phone] Tire Wrapper: Luis Carlos Reece MD Albumin, % 70 % High 45-65 [facility] Comment on above: Performed By: #### A VISCS #### [facility] [address] [place], [place] [phone] Tire Wrapper: Luke Blackburn MD #### GLYHGB, IGM, HIVCMB, CRYO #### [address] [phone] Tire Wrapper: Luis Carlos Reece MD Krugt-8-twtwaglwr 0.1 g/dL Normal 0.1-0.4 [facility] Comment on above: Performed By: #### A VISCS #### [facility] [address] [place] [phone] Tire Wrapper: Luke Blackburn MD #### GLYHGB, IGM, HIVCMB, CRYO #### [address] [phone] Tire Wrapper: Luis Carlos Reece MD Ncfoa-3-kabwpcuxf,% 2 % Low 3-6 [facility] Comment on above: Performed By: #### A VISCS #### [facility] [address] [place] [phone] Tire Wrapper: Luke Blackburn MD #### GLYHGB, IGM, HIVCMB, CRYO #### [address] [phone] Tire Wrapper: Luis Carlos Reece MD Eutjs-4-ygxpzvmnu 0.6 g/dL Normal 0.5-0.9 [facility] Comment on above: Performed By: #### A VISCS #### [facility] [address] [place] [phone] Tire Wrapper: Luke Blackburn MD #### GLYHGB, IGM, HIVCMB, CRYO #### [address] [phone] Tire Wrapper: Luis Carlos Reece MD Gbgvc-2-btlgqzvfa,% 9 % Normal 6-13 [facility] Comment on above: Performed By: #### A VISCS #### [facility] [address] [place] [address] Tire Wrapper: Luke Blackburn MD #### GLYHGB, IGM, HIVCMB, CRYO #### [address] [address] Tire Wrapper: Luis Carlos Reece MD Beta-globulins 0.6 g/dL Normal 0.5-1.1 [facility] Comment on above: Performed By: #### A VISCS #### [facility] [address] [place], [place] [phone] Tire Wrapper: Luke Blackburn MD #### GLYHGB, IGM, HIVCMB, CRYO #### [address] [phone] Tire Wrapper: Luis Carlos Reece MD Beta-globulins,% 8 % Low 11-19 [facility] Comment on above: Performed By: #### A VISCS #### [facility] [address] [place], [place] [phone] Tire Wrapper: Luke Blackburn MD #### GLYHGB, IGM, HIVCMB, CRYO #### [address] [phone] Tire Wrapper: Luis Carlos Reece MD Gamma-globulins 0.8 g/dL Normal 0.5-1.5 [facility] Comment on above: Performed By: #### A VISCS #### [facility] [address] [place], [place] [id number] Tire Wrapper: Luke Blackburn MD #### GLYHGB, IGM, HIVCMB, CRYO #### [address] [address] Tire Wrapper: Luis Carlos Reece MD Gamma-globulins,% 11 % Normal 9-20 [facility] Comment on above: Performed By: #### A VISCS #### [facility] [address] [place] [address] Tire Wrapper: Luke Blackburn MD #### GLYHGB, IGM, HIVCMB, CRYO #### [address] [address] Tire Wrapper: Luis Carlos Reece MD Total Prot. Sum 7.1 g/dL Normal 6.3-8.2 [facility] Comment on above: Performed By: #### A VISCS #### [facility] [address] [place], [place] [phone] Tire Wrapper: Luke Blackburn MD #### GLYHGB, IGM, HIVCMB, CRYO #### [address] [phone] Tire Wrapper: Luis Carlos Reece MD Total Prot. Sum,% 100 % Normal 98-102 [facility] Comment on above: Performed By: #### A VISCS #### [facility] [address] [place], [place] [id number] Tire Wrapper: Luke Blackburn MD #### GLYHGB, IGM, HIVCMB, CRYO #### [address] [address] Tire Wrapper: Luis Carlos Reece MD Lipid Profileon 06-12-2023 Cholesterol [Mass/Vol] 152 mg/dL Normal <200 [facility] Comment on above: Result Comment: Cholesterol Guidelines: <200 Desirable 200-240 Borderline >240 Undesirable Performed By: #### A VISCS #### [facility] [address] [place] [address] Tire Wrapper: Luke Blackburn MD #### GLYHGB, IGM, HIVCMB, CRYO #### [address] [address] Tire Wrapper: Luis Carlos Reece MD Cholesterol in HDL [Mass/Vol] 43 mg/dL Normal >40 [facility] Comment on above: Result Comment: HDL Guidelines: <40 Undesirable 40-59 Borderline >59 Desirable Performed By: #### A VISCS #### [facility] [address] [place] [address] Tire Wrapper: Luke Blackburn MD #### GLYHGB, IGM, HIVCMB, CRYO #### [facility] [address] [place] [address] [phone] Tire Wrapper: Luis Carlos Reece MD Cholesterol in LDL [Mass/Vol] 92 mg/dL Normal 0-130 [facility] Comment on above: Result Comment: LDL Guidelines: <100 Desirable 100-129 Near to/above Desirable 130-159 Borderline >159 Undesirable Direct (measured) LDL and calculated LDL are not interchangeable tests. Performed By: #### A VISCS #### [facility] [address] [place] [address] Tire Wrapper: Luke Blackburn MD #### GLYHGB, IGM, HIVCMB, CRYO #### [facility] [place] [address] [place] [address] [phone] Tire Wrapper: Luis Cralos Reece MD Cholesterol.total/C holesterol in HDL [Mass ratio] 3.5 {ratio} Normal <5 [facility] Comment on above: Performed By: #### A VISCS #### [facility] [address] [place] [address] Tire Wrapper: Luke Blackburn MD #### GLYHGB, IGM, HIVCMB, CRYO #### [facility] [place] [address] [place] [phone] Tire Wrapper: Luis Carlos Reece MD Triglyceride [Mass/Vol] 83 mg/dL Normal <150 [facility] Comment on above: Result Comment: Triglyceride Guidelines: <150 Desirable 150-199 Borderline 200-499 High >499 Very high Based on AHA Guidelines for fasting triglyceride, March 2012. Performed By: #### A VISCS #### [facility] [address] [place] [address] Tire Wrapper: Luke Blackburn MD #### GLYHGB, IGM, HIVCMB, CRYO #### [facility] [address] [place] [address] [phone] Tire Wrapper: Luis Carlos Reece MD Prot. Electroph, Blon 2023 Protein [Mass/Vol] 7.1 g/dL Normal 6.4-8.3 [facility] Comment on above: Performed By: #### A VISCS #### [facility] [address] [place] [address] Tire Wrapper: Luke Blackburn MD #### GLYHGB, IGM, HIVCMB, CRYO #### [address] [phone] Tire Wrapper: Luis Carlos Reece MD APTTon 06-11-2023 aPTT Coag (Bld) [Time] 29.8 s Normal 23.9-33.8 [facility] Comment on above: Result Comment: IV Heparin Therapy Range: 62.0-94.0 Performed By: #### A VISCS #### [facility] [address] [place] [address] Tire Wrapper: Luke Blackburn MD #### GLYHGB, IGM, HIVCMB, CRYO #### [address] [phone] Tire Wrapper: Luis Carlos Reece MD Amylaseon 06-11-2023 Amylase [Catalytic activity/Vol] 35 U/L Normal 28-100 [facility] Comment on above: Performed By: #### A VISCS #### [facility] [address] [place] [address] Tire Wrapper: Luke Blackburn MD #### GLYHGB, IGM, HIVCMB, CRYO #### [address] [phone] Tire Wrapper: Luis Carlos Reece MD CBC with Diffon 01-05-2024 Abs. Basophil 0.04 k/uL Normal 0.00-0.20 [facility] Comment on above: Performed By: #### A VISCS #### [facility] [address] [place] [address] [phone] Tire Wrapper: Luke Blackburn MD #### GLYHGB, IGM, HIVCMB, CRYO #### [place] [phone] Tire Wrapper: Luis Carlos Reece MD Abs.Imm.Granulocyte 0.03 k/uL Normal 0.00-0.30 [facility] Comment on above: Performed By: #### A VISCS #### [address] [phone] Tire Wrapper: Luke Blackburn MD #### GLYHGB, IGM, HIVCMB, CRYO #### [place] [address] Tire Wrapper: Luis Carlos Reece MD Abs.Neutrophil (Seg) 4.09 k/uL Normal 2.1-6.5 [facility] Comment on above: Performed By: #### A VISCS #### [facility] [address] [place] [phone] Tire Wrapper: Luke Blackburn MD #### GLYHGB, IGM, HIVCMB, CRYO #### [place] [address] Tire Wrapper: Luis Carlos Reece MD Basophils/100 WBC (Bld) 1 % Normal 0-2 [facility] Comment on above: Performed By: #### A VISCS #### [facility] [address] [place] [address] Tire Wrapper: Luke Blackburn MD #### GLYHGB, IGM, HIVCMB, CRYO #### [place] [phone] Tire Wrapper: Luis Carlos Reece MD Eosinophils (Bld) [#/Vol] 0.16 10*3/uL Normal 0.00-0.40 [facility] Comment on above: Performed By: #### A VISCS #### [facility] [address] [place], [place] [phone] Tire Wrapper: Luke Blackburn MD #### GLYHGB, IGM, HIVCMB, CRYO #### [address] [phone] Tire Wrapper: Luis Carlos Reece MD Eosinophils/100 WBC (Bld) 2 % Normal 0-5 [facility] Comment on above: Performed By: #### A VISCS #### [facility] [address] [place] [address] [phone] Tire Wrapper: Luke Blackburn MD #### GLYHGB, IGM, HIVCMB, CRYO #### [place] [address] Tire Wrapper: Luis Carlos Reece MD Erythrocyte distribution width (RBC) [Ratio] 12.5 % Normal 12.1-15.2 [facility] Comment on above: Performed By: #### A VISCS #### [facility] [address] [place] [address] Tire Wrapper: Luke Blackburn MD #### GLYHGB, IGM, HIVCMB, CRYO #### [place] [phone] Tire Wrapper: Luis Carlos Reece MD Hematocrit (Bld) [Volume fraction] 45.9 % Normal 41.0-53.0 [facility] Comment on above: Performed By: #### A VISCS #### [facility] [address] [place] [address] Tire Wrapper: Luke Blackburn MD #### GLYHGB, IGM, HIVCMB, CRYO #### [address] [phone] Tire Wrapper: Luis Carlos Reece MD Hemoglobin (Bld) [Mass/Vol] 15.6 g/dL Normal 13.5-17.5 [facility] Comment on above: Performed By: #### A VISCS #### [facility] [address] [place] [address] Tire Wrapper: Luke Blackburn MD #### GLYHGB, IGM, HIVCMB, CRYO #### [address] [address] Tire Wrapper: Luis Carlos Reece MD Immature granulocytes/100 WBC (Bld) 0 % Normal 0-5 [facility] Comment on above: Performed By: #### A VISCS #### [facility] [address] [address] Tire Wrapper: Luke Blackburn MD #### GLYHGB, IGM, HIVCMB, CRYO #### [address] [address] Tire Wrapper: Luis Carlos Reece MD Lymphocytes (Bld) [#/Vol] 2.11 10*3/uL Normal 1.00-4.80 [facility] Comment on above: Performed By: #### A VISCS #### [facility] [address] [place] [address] Tire Wrapper: Luke Blackburn MD #### GLYHGB, IGM, HIVCMB, CRYO #### [address] [address] Tire Wrapper: Luis Carlos Reece MD Lymphocytes/100 WBC (Bld) 29 % Normal 13-44 [facility] Comment on above: Performed By: #### A VISCS #### [facility] [address] [place] [address] Tire Wrapper: Luke Blackburn MD #### GLYHGB, IGM, HIVCMB, CRYO #### [address] [address] Tire Wrapper: Luis Carlos Reece MD MCH (RBC) [Entitic mass] 29.1 pg Normal 26.0-34.0 [facility] Comment on above: Performed By: #### A VISCS #### [facility] [address] [place] [address] [phone] Tire Wrapper: Luke Blackburn MD #### GLYHGB, IGM, HIVCMB, CRYO #### [place] [phone] T[employer] Wrapper: Luis Carlos Reece MD MCHC (RBC) [Mass/Vol] 34.0 g/dL Normal 31.0-37.0 [facility] Comment on above: Performed By: #### A VISCS #### [address] [phone] Tire Wrapper: Luke Blackburn MD #### GLYHGB, IGM, HIVCMB, CRYO #### [place] [address] Tire Wrapper: Luis Carlos Reece MD MCV (RBC) [Entitic vol] 85.6 fL Normal 80.0-100.0 [facility] Comment on above: Performed By: #### A VISCS #### [address] [address] Tire Wrapper: Luke Blackburn MD #### GLYHGB, IGM, HIVCMB, CRYO #### [address] [phone] Tire Wrapper: Luis Carlos Reece MD Monocytes (Bld) [#/Vol] 0.82 10*3/uL Normal 0.00-1.00 [facility] Comment on above: Performed By: #### A VISCS #### [facility] [address] [place] [address] [phone] Tire Wrapper: Luke Blackburn MD #### GLYHGB, IGM, HIVCMB, CRYO #### [address] [address] Tire Wrapper: Luis Carlos Reece MD Monocytes/100 WBC (Bld) 11 % High 5-9 [facility] Comment on above: Performed By: #### A VISCS #### [facility] [address] [place] [address] Tire Wrapper: Luke Blackburn MD #### GLYHGB, IGM, HIVCMB, CRYO #### [address] [address] Tire Wrapper: Luis Carlos Reece MD Neutrophil (Seg) 57 % Normal 39-75 [facility] Comment on above: Performed By: #### A VISCS #### [facility] [address] [place] [address] Tire Wrapper: Luke Blackburn MD #### GLYHGB, IGM, HIVCMB, CRYO #### [address] [address] T[employer] Wrapper: Luis Carlos Reece MD Platelet mean volume (Bld) [Entitic vol] 9.9 fL Normal 6.0-12.0 [facility] Comment on above: Performed By: #### A VISCS #### [facility] [address] [place] [address] Tire Wrapper: Luke Blackburn MD #### GLYHGB, IGM, HIVCMB, CRYO #### [address] [address] Tire Wrapper: Luis Carlos Reece MD Platelets (Bld) [#/Vol] 432 10*3/uL Normal 140-450 [facility] Comment on above: Performed By: #### A VISCS #### [facility] [address] [place] [address] Tire Wrapper: Luke Blackburn MD #### GLYHGB, IGM, HIVCMB, CRYO #### [address] [address] T[employer] Wrapper: Luis Carlos Reece MD RBC (Bld) [#/Vol] 5.36 10*6/uL Normal 4.50-5.90 [facility] Comment on above: Performed By: #### A VISCS #### [facility] [address] [place] [address] Tire Wrapper: Luke Blackburn MD #### GLYHGB, IGM, HIVCMB, CRYO #### [address] [phone] Tire Wrapper: Luis Carlos Reece MD WBC (Bld) [#/Vol] 7.3 10*3/uL Normal 3.5-11.0 [facility] Comment on above: Performed By: #### A VISCS #### [facility] [address] [place] [address] Tire Wrapper: Luke Blackburn MD #### GLYHGB, IGM, HIVCMB, CRYO #### [address] [address] Tire Wrapper: Luis Carlos Reece MD Comp Metabolic Profon 2023 Albumin [Mass/Vol] 4.5 g/dL Normal 3.5-5.2 [facility] Comment on above: Performed By: #### A VISCS #### [facility] [address] [place] [address] Tire Wrapper: Luke Blackburn MD #### GLYHGB, IGM, HIVCMB, CRYO #### [address] [address] Tire Wrapper: Luis Carlos Reece MD Alkaline Phos 55 U/L Normal 40-129 [facility] Comment on above: Performed By: #### A VISCS #### [facility] [address] [place] [address] Tire Wrapper: Luke Blackburn MD #### GLYHGB, IGM, HIVCMB, CRYO #### [address] [address] Tire Wrapper: Luis Carlos Reece MD ALT [Catalytic activity/Vol] 35 U/L Normal 5-41 [facility] Comment on above: Performed By: #### A VISCS #### [facility] [address] [place], [place] [id number] Tire Wrapper: Luke Blackburn MD #### GLYHGB, IGM, HIVCMB, CRYO #### [address] [address] Tire Wrapper: Luis Carlos Reece MD Anion gap [Moles/Vol] 9 mmol/L Normal 9-17 [facility] Comment on above: Performed By: #### A VISCS #### [address] [id number] Tire Wrapper: Luke Blackburn MD #### GLYHGB, IGM, HIVCMB, CRYO #### [address] [address] Tire Wrapper: Luis Carlos Reece MD AST [Catalytic activity/Vol] 29 U/L Normal <40 [facility] Comment on above: Performed By: #### A VISCS #### [facility] [address] [place] [id number] Tire Wrapper: Luke Blackburn MD #### GLYHGB, IGM, HIVCMB, CRYO #### [address] [address] Tire Wrapper: Luis Carlos Reece MD Bilirubin [Mass/Vol] 0.4 mg/dL Normal 0.3-1.2 [facility] Comment on above: Performed By: #### A VISCS #### [facility] [address] [place] [address] Tire Wrapper: Luke Blackburn MD #### GLYHGB, IGM, HIVCMB, CRYO #### [address] [address] Tire Wrapper: Luis Carlos Reece MD BUN/CRE Ratio 7 Low 9-20 [facility] Comment on above: Performed By: #### A VISCS #### [facility] [address] [place], [place] [id number] Tire Wrapper: Luke Blackburn MD #### GLYHGB, IGM, HIVCMB, CRYO #### [address] [address] Tire Wrapper: Luis Carlos Reece MD Calcium [Mass/Vol] 9.6 mg/dL Normal 8.6-10.4 [facility] Comment on above: Performed By: #### A VISCS #### [facility] [address] [place], [place] [id number] Tire Wrapper: Luke Blackburn MD #### GLYHGB, IGM, HIVCMB, CRYO #### [address] [address] Tire Wrapper: Luis Carlos Reece MD Chloride [Moles/Vol] 104 mmol/L Normal 98-107 [facility] Comment on above: Performed By: #### A VISCS #### [facility] [address] [place], [place] [id number] Tire Wrapper: Luke Blackburn MD #### GLYHGB, IGM, HIVCMB, CRYO #### [address] [address] Tire Wrapper: Luis Carlos Reece MD CO2 [Moles/Vol] 26 mmol/L Normal 20-31 [facility] Comment on above: Performed By: #### A VISCS #### [facility] [address] [place] [address] Tire Wrapper: Luke Blackburn MD #### GLYHGB, IGM, HIVCMB, CRYO #### [address] [address] Tire Wrapper: Luis Carlos Reece MD Creatinine [Mass/Vol] 0.9 mg/dL Normal 0.7-1.2 [facility] Comment on above: Performed By: #### A VISCS #### [facility] [address] [place], [place] [id number] Tire Wrapper: Luke Blackburn MD #### GLYHGB, IGM, HIVCMB, CRYO #### [address] [id number] Tire Wrapper: Luis Carlos Reece MD GFR/1.73 sq M.predicted among non-blacks MDRD (S/P/Bld) [Vol rate/Area] mL/min/{1.73_m2} Normal >60 [facility] Comment on above: Result Comment: These results are not intended for use in patients <18 years of age. eGFR results are calculated without a race factor using the 2020 CKD-EPI equation. Careful clinical correlation is recommended, particularly when comparing to results calculated using previous equations. The CKD-EPI equation is less accurate in patients with extremes of muscle mass, extra-renal metabolism of creatine, excessive creatine ingestion, or following therapy that affects renal tubular secretion. Performed By: #### A VISCS #### [facility] [address] [place] [id number] Tire Wrapper: Luke Blackburn MD #### GLYHGB, IGM, HIVCMB, CRYO #### [address] [phone] Tire Wrapper: Luis Carlos Reece MD Glucose [Mass/Vol] 124 mg/dL High 70-99 [facility] Comment on above: Performed By: #### A VISCS #### [facility] [address] [place], [place] [id number] Tire Wrapper: Luke Blackburn MD #### GLYHGB, IGM, HIVCMB, CRYO #### [address] [phone] Tire Wrapper: Luis Carlos Reece MD Potassium [Moles/Vol] 4.0 mmol/L Normal 3.7-5.3 [facility] Comment on above: Performed By: #### A VISCS #### [facility] [address] [place] [address] Tire Wrapper: Luke Blackburn MD #### GLYHGB, IGM, HIVCMB, CRYO #### [address] [address] Tire Wrapper: Luis Carlos Reece MD Protein [Mass/Vol] 7.5 g/dL Normal 6.4-8.3 [facility] Comment on above: Performed By: #### A VISCS #### [facility] [address] [place], [place] [id number] Tire Wrapper: Luke Blackburn MD #### GLYHGB, IGM, HIVCMB, CRYO #### [address] [id number] Tire Wrapper: Luis Carlos Reece MD Sodium [Moles/Vol] 139 mmol/L Normal 135-144 [facility] Comment on above: Performed By: #### A VISCS #### [facility] [address] [place], [place] [id number] Tire Wrapper: Luke Blackburn MD #### GLYHGB, IGM, HIVCMB, CRYO #### [address] [id number] Tire Wrapper: Lius Carlos Reece MD Urea nitrogen [Mass/Vol] 6 mg/dL Normal 6-20 [facility] Comment on above: Performed By: #### A VISCS #### [facility] [address] [place], [place] [id number] Tire Wrapper: Luke Blackburn MD #### GLYHGB, IGM, HIVCMB, CRYO #### [address] [address] Tire Wrapper: Luis Carlso Reece MD Lipaseon 06-11-2023 Lipase [Catalytic activity/Vol] 38 U/L Normal 13-60 [facility] Comment on above: Performed By: #### A VISCS #### [facility] [address] [place], [place] [id number] Tire Wrapper: Luke Blackburn MD #### GLYHGB, IGM, HIVCMB, CRYO #### [address] [address] Tire Wrapper: Luis Carlos Reece MD PTon 06-11-2023 INR Coag (PPP) [Relative time] 1.1 {INR} Normal [facility] Comment on above: Result Comment: Therapeutic Range: Moderate Anticoagulant Intensity: INR = 2.0-3.0 High Anticoagulant Intensity: INR = 2.5-3.5 Performed By: #### A VISCS #### [facility] [address] [place] [address] Tire Wrapper: Luke Blackburn MD #### GLYHGB, IGM, HIVCMB, CRYO #### [address] [address] Tire Wrapper: Luis Carlos Reece MD PT Coag (PPP) [Time] 14.7 s High 11.5-14.2 [facility] Comment on above: Performed By: #### A VISCS #### [facility] [address] [place] [address] Tire Wrapper: Luke Blackburn MD #### GLYHGB, IGM, HIVCMB, CRYO #### [facility] [employer] [place] [address] [place] [address] Tire Wrapper: Luis Carlos Reece MD CT head/brain wo [facility] 06-05 CT head/brain wo [address] [address] [address] Scan Report Signed Patient: Alberto Germain MR#: [id number] 51 : 1990 Acct:[id number] Age/Sex: 32 / M ADM Date: 06/05/23 Loc: ER Room: Type: REG ER Attending Dr: Copies to: Konstantin Khan DO Ordering Provider: Konstantin Khan DO Date of Service: 06/05/23 CT/CT head/brain wo con: berger, blurry vision [address] TECHNIQUE: Contiguous axial imaging of the head. The CT exam was performed using one or more the following dose reduction techniques: Automated exposure control, adjustment of the MA and/or Kv according to patient size, or use of the iterative reconstruction technique. COMPARISON: 11/13/2019 HISTORY: Blurred vision. Headache for 3 days VENTRICLES: Within normal limits ATROPHY: None BRAIN PARENCHYMA: Adequate batres-white matter differentiation identified. HEMORRHAGE: None HERNIATION: No mass effect or herniation INFARCTION: No recent vascular distribution infarction is seen. EXTRA-AXIAL FLUID COLLECTIONS None MIDBRAIN: Unremarkable GONZALO: Unremarkable MEDULLA: Unremarkable SINUSES: Unremarkable ORBITS: Grossly unremarkable MASTOIDS: Unremarkable BONY STRUCTURES Intact ADDITIONAL FINDINGS: CT/CT head/brain wo con IMPRESSION: No acute findings. Impression dictated by: Kwadwo Mi M.D.06/05/2023 5:40 PM Dictation Location: [place] [address] Transcribed By: [facility] 06/05/231739 Dictated By: Kwadwo Mi DO 06/05/231738 Signed By: 06/05/231739 Normal [facility] ECG 12 lead ECGon 06-05-2023 ECG 12 lead ECG [facility] [place] [place] [address] Electrocardiograph Report Signed Patient: Alberto Germain MR#: [id number] 51 : 1990 Acct:[id number] Age/Sex: 32 / M ADM Date: 06/05/23 Loc: ER Room: Type: [facility] ER Attending Dr: Ordering Provider: Konstantin Khan DO Date of Service: 06/05/23 ECG/ECG 12 lead ECG: Headache Copies to: Test Reason : Blood Pressure : 133/079 mmHG Vent. Rate : 073 BPM Atrial Rate : 073 BPM P-R Int : 134 ms QRS Dur : 088 ms QT Int : 360 ms P-R-T Axes : 051 066 035 degrees QTc Int : 396 ms Sinus rhythm with occasional premature ventricular complexes Low voltage QRS Borderline ECG When compared with ECG of 13-NOV-2019 13:50, premature ventricular complexes are now present Confirmed by KONSTANTIN KHAN DO ([id number]) on 06/05/2023 11:13:30 PM Referred By: Electronically Signed By:KONSTANTIN KHAN DO Transcribed By: MUS Signed By Konstantin Khan DO [id number] Normal [facility] Basic Metab w/rfx MGon 10-13 Anion gap [Moles/Vol] 11 mmol/L Normal 9-17 [facility] Comment on above: Performed By: #### T ROPI, BMPX, CDP, DIME #### [facility] [address] [place], [place] [id number] Tire Wrapper: Ari Washburn MD BUN/CRE Ratio 12 Normal 9-20 [facility] Comment on above: Performed By: #### T ROPI, BMPX, CDP, DIME #### [facility] [address] [place] [address] Tire Wrapper: Ari Washburn MD Calcium [Mass/Vol] 9.6 mg/dL Normal 8.6-10.4 [facility] Comment on above: Performed By: #### T ROPI, BMPX, CDP, DIME #### [facility] [address] [place] [address] Tire Wrapper: Ari Washburn MD Chloride [Moles/Vol] 101 mmol/L Normal 98-107 [facility] Comment on above: Performed By: #### T ROPI, BMPX, CDP, DIME #### [facility] [address] [place], [place] [phone] Tire Wrapper: Ari Washburn MD CO2 [Moles/Vol] 25 mmol/L Normal 20-31 [facility] Comment on above: Performed By: #### T ROPI, BMPX, CDP, DIME #### [facility] [address] [place], [place] [id number] Tire Wrapper: Ari Washburn MD Creatinine [Mass/Vol] 0.91 mg/dL Normal 0.70-1.20 [facility] Comment on above: Performed By: #### T ROPI, BMPX, CDP, DIME #### [facility] [address] [place], [place] [id number] Tire Wrapper: Ari Washburn MD GFR/1.73 sq M.predicted among non-blacks MDRD (S/P/Bld) [Vol rate/Area] mL/min/{1.73_m2} Normal >60 [facility] Comment on above: Result Comment: These results are not intended for use in patients <18 years of age. eGFR results are calculated without a race factor using the 2020 CKD-EPI equation. Careful clinical correlation is recommended, particularly when comparing to results calculated using previous equations. The CKD-EPI equation is less accurate in patients with extremes of muscle mass, extra-renal metabolism of creatine, excessive creatine ingestion, or following therapy that affects renal tubular secretion. Performed By: #### T ROPI, BMPX, CDP, DIME #### [facility] [address] [place] [address] Tire Wrapper: Ari Washburn MD Glucose [Mass/Vol] 98 mg/dL Normal 70-99 [facility] Comment on above: Performed By: #### T ROPI, BMPX, CDP, DIME #### [facility] [address] [place] [address] Tire Wrapper: Ari Washburn MD Potassium [Moles/Vol] 4.0 mmol/L Normal 3.7-5.3 [facility] Comment on above: Performed By: #### T ROPI, BMPX, CDP, DIME #### [facility] [address] [place] [address] Tire Wrapper: Ari Washburn MD Sodium [Moles/Vol] 137 mmol/L Normal 135-144 [facility] Comment on above: Performed By: #### T ROPI, BMPX, CDP, DIME #### [facility] [address] [place], [place] [id number] Tire Wrapper: Ari Washburn MD Urea nitrogen [Mass/Vol] 11 mg/dL Normal 6-20 [facility] Comment on above: Performed By: #### T ROPI, BMPX, CDP, DIME #### [facility] [address] [place] [address] Tire Wrapper: Ari Washburn MD Basic Metabolic Panel w/ Ref landon to MGon 10-13-2022 Anion gap [Moles/Vol] 11 mmol/L 9 - 17 mmol/L [facility] Calcium [Mass/Vol] 9.6 mg/dL 8.6 - 10. 4 mg/dL [facility] Chloride [Moles/Vol] 101 mmol/L 98 - 107 mmol/L [facility] CO2 [Moles/Vol] 25 mmol/L 20 - 31 mmol/L [facility] Creatinine [Mass/Vol] 0.91 mg/dL 0.70 - 1.20 mg/dL [facility] GFR/1.73 sq M.predicted MDRD (S/P/Bld) [Vol rate/Area] - PINF [facility] Comment on above: These results are not intended for use in patients <18 years of age. eGFR results are calculated without a race factor using the 2020 CKD-EPI equation. Careful clinical correlation is recommended, particularly when comparing to results calculated using previous equations. The CKD-EPI equation is less accurate in patients with extremes of muscle mass, extra-renal metabolism of creatine, excessive creatine ingestion, or following therapy that affects renal tubular secretion. Glucose [Mass/Vol] 98 mg/dL 70 - 99 mg/dL [facility] Potassium [Moles/Vol] 4.0 mmol/L 3.7 - 5.3 mmol/L [facility] Sodium [Moles/Vol] 137 mmol/L 135 - 144 mmol/L [facility] Urea nitrogen [Mass/Vol] 11 mg/dL 6 - 20 mg/dL [facility] Urea nitrogen/Creatinine (Bld) [Mass ratio] 12 9 - 20 [facility] CBC with Auto Differentialon 10-13-2022 Absolute Eos # 0.50 High [facility] Absolute Lymph # 3.70 [facility] Absolute Dodge # 0.90 [facility] Basophils (Bld) [#/Vol] 0.10 10*3/uL [facility] Basophils/100 WBC (Bld) 2 % 0 - 2 % [facility] Differential Type YES [facility] Eosinophils/100 WBC (Bld) 5 % 0 - 5 % [facility] Hematocrit (Bld) [Volume fraction] 42.0 % 41 - 53 % [facility] Hemoglobin (Bld) [Mass/Vol] 14.6 g/dL 13.5 - 17.5 g/dL [facility] Interpretation and review of laboratory results Abnormal [facility] Lymphocytes/100 WBC (Bld) 39 % 13 - 44 % [facility] MCH (RBC) [Entitic mass] 31.2 pg 26 - 34 pg [facility] MCHC (RBC) [Mass/Vol] 34.7 g/dL 31 - 37 g/dL [facility] MCV (RBC) [Entitic vol] 89.7 fL 80 - 100 fL [facility] Monocytes/100 WBC (Bld) 9 % 5 - 9 % [facility] Platelet distribution width (Bld) [Ratio] 13.0 % 12.1 - 15.2 % [facility] Platelets (Bld) [#/Vol] 340 10*3/uL [facility] RBC (Bld) [#/Vol] 4.68 10*6/uL 4.5 - 5.9 m/uL [facility] Segmented neutrophils/100 WBC (Bld) 45 % 39 - 75 % [facility] Segs Absolute 4.30 [facility] WBC (Bld) [#/Vol] 9.4 10*3/uL [facility] CBC with Diffon 10-13-2022 Abs. Basophil 0.10 k/uL Normal 0.0-0.2 [facility] Comment on above: Performed By: #### T ROPI, BMPX, CDP, DIME #### [facility] [address] [place] [address] Tire Wrapper: Ari Washburn MD Abs.Neutrophil (Seg) 4.30 k/uL Normal 2.1-6.5 [facility] Comment on above: Performed By: #### T ROPI, BMPX, CDP, DIME #### [facility] [address] [place] [id number] Tire Wrapper: Ari Washburn MD Auto Diff Performed YES Normal [facility] Comment on above: Performed By: #### T ROPI, BMPX, CDP, DIME #### [facility] [address] [place] [id number] Tire Wrapper: Ari Washburn MD Basophils/100 WBC (Bld) 2 % Normal 0-2 [facility] Comment on above: Performed By: #### T ROPI, BMPX, CDP, DIME #### [facility] [address] [place] [address] Tire Wrapper: Ari Washburn MD Eosinophils (Bld) [#/Vol] 0.50 10*3/uL High 0.0-0.4 [facility] Comment on above: Performed By: #### T ROPI, BMPX, CDP, DIME #### [facility] [address] [place] [address] Tire Wrapper: Ari Washburn MD Eosinophils/100 WBC (Bld) 5 % Normal 0-5 [facility] Comment on above: Performed By: #### T ROPI, BMPX, CDP, DIME #### [facility] [address] [place] [address] Tire Wrapper: Ari Washburn MD Erythrocyte distribution width (RBC) [Ratio] 13.0 % Normal 12.1-15.2 [facility] Comment on above: Performed By: #### T ROPI, BMPX, CDP, DIME #### [facility] [address] [place] [address] Tire Wrapper: Ari Washburn MD Hematocrit (Bld) [Volume fraction] 42.0 % Normal 41-53 [facility] Comment on above: Performed By: #### T ROPI, BMPX, CDP, DIME #### [facility] [address] [place] [id number] Tire Wrapper: Ari Washburn MD Hemoglobin (Bld) [Mass/Vol] 14.6 g/dL Normal 13.5-17.5 [facility] Comment on above: Performed By: #### T ROPI, BMPX, CDP, DIME #### [facility] [address] [place] [address] Tire Wrapper: Ari Washburn MD Lymphocytes (Bld) [#/Vol] 3.70 10*3/uL Normal 1.0-4.8 [facility] Comment on above: Performed By: #### T ROPI, BMPX, CDP, DIME #### [facility] [address] [place] [id number] Tire Wrapper: Ari Washburn MD Lymphocytes/100 WBC (Bld) 39 % Normal 13-44 [facility] Comment on above: Performed By: #### T ROPI, BMPX, CDP, DIME #### [facility] [address] [place] [id number] Tire Wrapper: Ari Washburn MD MCH (RBC) [Entitic mass] 31.2 pg Normal 26-34 [facility] Comment on above: Performed By: #### T ROPI, BMPX, CDP, DIME #### [facility] [address] [place] [id number] Tire Wrapper: Ari Washburn MD MCHC (RBC) [Mass/Vol] 34.7 g/dL Normal 31-37 [facility] Comment on above: Performed By: #### T ROPI, BMPX, CDP, DIME #### [facility] [address] [place] [address] Tire Wrapper: Ari Washburn MD MCV (RBC) [Entitic vol] 89.7 fL Normal 80-100 [facility] Comment on above: Performed By: #### T ROPI, BMPX, CDP, DIME #### [facility] [address] [place] [address] [phone] Tire Wrapper: Ari Washburn MD Monocytes (Bld) [#/Vol] 0.90 10*3/uL Normal 0.0-1.0 [facility] Comment on above: Performed By: #### T ROPI, BMPX, CDP, DIME #### [facility] [address] [place] [address] [phone] Tire Wrapper: Ari Washburn MD Monocytes/100 WBC (Bld) 9 % Normal 5-9 [facility] Comment on above: Performed By: #### T ROPI, BMPX, CDP, DIME #### [facility] [address] [place] [address] Tire Wrapper: Ari Washburn MD Neutrophil (Seg) 45 % Normal 39-75 [facility] Comment on above: Performed By: #### T ROPI, BMPX, CDP, DIME #### [facility] [address] [place] [address] [phone] Tire Wrapper: Ari Washburn MD Platelets (Bld) [#/Vol] 340 10*3/uL Normal 140-450 [facility] Comment on above: Performed By: #### T ROPI, BMPX, CDP, DIME #### [facility] [address] [place] [address] [phone] Tire Wrapper: Ari Washburn MD RBC (Bld) [#/Vol] 4.68 10*6/uL Normal 4.5-5.9 [facility] Comment on above: Performed By: #### T ROPI, BMPX, CDP, DIME #### [facility] [address] [place], [place] [phone] Tire Wrapper: Ari Washburn MD WBC (Bld) [#/Vol] 9.4 10*3/uL Normal 3.5-11.0 [facility] Comment on above: Performed By: #### T ROPI, BMPX, CDP, DIME #### [facility] [address] [place] [address] Tire Wrapper: Ari Washburn MD D-Dimer Teston 10-13-2022 D-Dimer Test 0.30 ug/mL FEU Normal 0.00-0.59 [facility] Comment on above: Result Comment: When combined with a low clinical probability, a D dimer value of <0.50 ug/mL FEU is considered negative for DVT and PE (negative predictive value of 98%, sensitivity of 97%). If this test is not being used to help rule out DVT and PE, then the following reference range should be utilized: 0.00 - 0.59 ug/mL FEU. The D-Dimer assay is intended for use as an aid in the diagnosis of venous thromboembolism (DVT and PE) and the results should be interpreted in conjunction with the patient's medical history, clinical presentation, and other findings. Elevated levels of D-dimer activity can be seen in any state of coagulation activation and is not recommended in patients with therapeutic dose anticoagulant therapy for >24 hours, fibrinolytic therapy within the previous 7 days, trauma or surgery within the previous 4 weeks, disseminated malignancies, aortic aneurysm, sepsis, severe infections, pneumonia, severe skin infections, liver cirrhosis, advanced age, coronary disease, diabetes, and . A very low percentage of patients with DVT may yield D-dimer results below the cutoff of 0.5 ug/mL FEU. This is known to be more prevalent in patients with distal DVT. Performed By: #### T ROPI, BMPX, CDP, DIME #### [facility] [address] [place] [address] Tire Wrapper: Ari Washburn MD D-Dimer, Quantitativeon 05- Fibrin D-dimer FEU IA (Bld) [Mass/Vol] 0.30 ug/mL [facility] Comment on above: When combined with a low clinical probability, a D dimer value of <0.50 ug/mL FEU is considered negative for DVT and PE (negative predictive value of 98%, sensitivity of 97%). If this test is not being used to help rule out DVT and PE, then the following reference range should be utilized: 0.00 - 0.59 ug/mL FEU. The D-Dimer assay is intended for use as an aid in the diagnosis of venous thromboembolism (DVT and PE) and the results should be interpreted in conjunction with the patient's medical history, clinical presentation, and other findings. Elevated levels of D-dimer activity can be seen in any state of coagulation activation and is not recommended in patients with therapeutic dose anticoagulant therapy for >24 hours, fibrinolytic therapy within the previous 7 days, trauma or surgery within the previous 4 weeks, disseminated malignancies, aortic aneurysm, sepsis, severe infections, pneumonia, severe skin infections, liver cirrhosis, advanced age, coronary disease, diabetes, and . A very low percentage of patients with DVT may yield D-dimer results below the cutoff of 0.5 ug/mL FEU. This is known to be more prevalent in patients with distal DVT. [facility] [facility] Troponinon 10-13-2022 Troponin, High Sens <6 Normal 0-22 [facility] [place] Comment on above: Result Comment: High Sensitivity Troponin values cannot be compared with other Troponin methodologies. Performed By: #### A VISCS #### [facility] [address] [place] [address] [employer]ire Wrapper: Luke Balckburn MD #### GLYHGB, IGM, HIVCMB, CRYO #### [facility] [address] [place] [address] [employer] Wrapper: Luis Carlos Reece MD Troponin I.cardiac DL <= 0.01 ng/mL [Mass/Vol] ng/L 0 - 22 ng/L [facility] Comment on above: High Sensitivity Tro ponin values cannot be compared with other Troponin methodologies. [facility] XR CHEST PORTABLEon 10-14-19 XR CHEST PORTABLE EXAM: XR CHEST PORTABLE HISTORY: Reason for exam:->Chest pain COMPARISON: Chest x-ray 05/05/2022 TECHNIQUE: AP chest x-ray. FINDINGS: Cardiac size appears within normal limits. Trachea is midline. No mediastinal widening. Lungs appear clear. No pneumothorax or effusion is identified. Osseous structures appear intact. IMPRESSION: No acute cardiopulmonary process is identified. Interpreted by: Jeremiah Monaco DO Signed by: Jeremiah Monaco DO 10/13/22 Final result Normal [facility] XR LUMBAR SPINE (MIN 4 VIEWS )on 01-16-2022 Decreased lumbar lordosis, but otherwise normal lumbar spine series. [facility] EXAM: XR LUMBAR SPIN E (MIN 4 VIEWS) HISTORY: Reason for exam:->Chronic low back pain -year-old male COMPARISON: None. TECHNIQUE: 5 views lumbar spine FINDINGS: No pars defects or spondylolisthesis. The lumbar lordosis is somewhat shallow. No spondylolisthesis or degenerative change. SI joints normal. [facility] Darrel Johnston Jr., MD - 01/16/2022 EXAM: XR LUMBAR SPINE (MIN 4 VIEWS) HISTORY: Reason for exam:->Chronic low back pain -year-old male COMPARISON: None. TECHNIQUE: 5 views lumbar spine FINDINGS: No pars defects or spondylolisthesis. The lumbar lordosis is somewhat shallow. No spondylolisthesis or degenerative change. SI joints normal. IMPRESSION: Decreased lumbar lordosis, but otherwise normal lumbar spine series. [facility] [employer] Work Phone: Radiology Study observation (narrative) [facility] Track Phone: XR LUMBAR SPINE (MIN 4 VIEWS )Ordered By: Darrel Johnston on 01-16-2022 [facility] CBC AUTO DIFFon 03-02-2019 Basophils (Bld) [#/Vol] 0.1 103/ul Normal 0.0-0.1 [facility] Comment on above: Performed By: #### C BC #### [facility] [address] [place], [place] [id number] [employer] Basophils/100 WBC (Bld) 0.8 % Normal 0.2-2.0 [facility] Comment on above: Performed By: #### C BC #### [facility] [address] [place], [place] [phone] [employer] [facility] Eosinophils (Bld) [#/Vol] 0.2 103/ul Normal 0.0-0.7 [facility] Comment on above: Performed By: #### C BC #### [facility] [address] [place], [place] [address] [employer] Eosinophils/100 WBC (Bld) 2.6 % Normal 0.9-7.0 [facility] Comment on above: Performed By: #### C BC #### [facility] [address] [place], [place] [phone] [employer] Erythrocyte distribution width (RBC) [Ratio] 12.2 % Normal 11.0-15.0 [facility] Comment on above: Performed By: #### C BC #### [facility] [address] [place], [place] [address] [employer] Hematocrit (Bld) [Volume fraction] 44.2 % Normal 42.0-54.0 [facility] Comment on above: Performed By: #### C BC #### [facility] [address] [place], [place] [address] [employer] Hemoglobin (Bld) [Mass/Vol] 15.1 g/dL Normal 14.0-18.0 [facility] Comment on above: Performed By: #### C BC #### [facility] [address] [place], [place] [address] [employer] IG # 0.03 10e3/ul Normal 0.00-0.03 [facility] Comment on above: Performed By: #### C BC #### [facility] [address] [place], [place] [address] [employer] IG % 0.3 % Normal 0.0-0.5 [facility] Comment on above: Performed By: #### C BC #### [facility] [address] [address] [employer] Lymphocytes (Bld) [#/Vol] 3.2 103/ul Normal 1.2-3.8 [facility] Comment on above: Performed By: #### C BC #### [facility] [address] [place], [place] [address] [employer] Lymphocytes/100 WBC (Bld) 35.1 % Normal 20.5-60.0 [facility] Comment on above: Performed By: #### C BC #### [facility] [address] [place], [place] [address] [employer] MANUAL DIFF REQ NO Normal [facility] Comment on above: Performed By: #### C BC #### [facility] [address] [place] [address] [employer] MCH (RBC) [Entitic mass] 30.4 pg Normal 25.9-34.0 [facility] Comment on above: Performed By: #### C BC #### [facility] [address] [place] [address] [employer] MCHC (RBC) [Mass/Vol] 34.2 g/dL Normal 29.9-35.2 [facility] Comment on above: Performed By: #### C BC #### [facility] [address] [place] [address] [employer] MCV (RBC) [Entitic vol] 89.1 fL Normal 80.0-94.0 [facility] Comment on above: Performed By: #### C BC #### [facility] [address] [place], [place] [address] [employer] Monocytes (Bld) [#/Vol] 0.8 103/ul Normal 0.3-0.8 [facility] Comment on above: Performed By: #### C BC #### [facility] [address] [place], [place] [address] [employer] Monocytes/100 WBC (Bld) 9.3 % Normal 1.7-12.0 [facility] Comment on above: Performed By: #### C BC #### [facility] [address] [place], [place] [address] [employer] Neutrophils (Bld) [#/Vol] 4.7 103/ul Normal 1.4-6.5 [facility] Comment on above: Performed By: #### C BC #### [facility] [address] [place], [place] [address] [employer] Neutrophils/100 WBC (Bld) 51.9 % Normal 43.0-75.0 [facility] Comment on above: Performed By: #### C BC #### [facility] [address] [place], [place] [address] [employer] Platelet mean volume (Bld) [Entitic vol] 10.7 fL Normal 9.5-13.5 [facility] Comment on above: Performed By: #### C BC #### [facility] [address] [place], [place] [address] [employer] Platelets (Bld) [#/Vol] 365 103/ul Normal 150-450 [facility] Comment on above: Performed By: #### C BC #### [facility] [address] [place], [place] [address] [employer] RBC (Bld) [#/Vol] 4.96 106/ul Normal 4.70-6.10 [facility] Comment on above: Performed By: #### C BC #### [facility] [address] [place], [place] [address] [employer] WBC (Bld) [#/Vol] 9.1 103/ul Normal 4.0-11.0 [facility] Comment on above: Performed By: #### C BC #### [facility] [address] [place], [place] [address] ABD/PELVIS WO CONon 03-02 CT ABD/PELVIS WO CON Patient: ALBERTO GERMAIN Exam Date: 03/02/2019 : 1990 Gender:M Ordering : DR IZA ZENG D.O. Admission #: [id number] Family : DR DALJIT PEDRO D.O. Order #: [id number] CLICK HERE TO VIEW EXAM RADIOLOGY REPORT PROCEDURE: CT ABDOMEN AND PELVIS WITHOUT CONTRAST COMPARISON: None. INDICATIONS: Acute left lower quadrant pain TECHNIQUE: Axial, Coronal, and Sagittal images were created without IV contrast. DOSE: 660 mGycm FINDINGS: LUNG BASES: No visible pulmonary or pleural disease. LIVER: No enlargement, atrophy, abnormal density, or significant focal lesion. BILIARY: No visible dilatation or calcification. PANCREAS: No lesion, fluid collection, ductal dilatation, or atrophy. SPLEEN: No enlargement or focal lesion. ADRENALS: No mass or enlargement. KIDNEYS: No mass, obstruction, or calcification. BOWEL/MESENTERY: No visible mass, obstruction, or bowel wall thickening. Normal appendix. AORTA/VASCULAR: No aneurysm or dissection. RETROPERITONEUM: No mass or adenopathy. LYMPH NODES: No adenopathy. URINARY BLADDER: No visible focal wall thickening, lesion, or calculus. PELVIC ORGANS: No visible mass. Pelvic organs appropriate for patient age. ABDOMINAL WALL: No mass or hernia. BONES: No bone lesion or fracture. OTHER: Negative. CONCLUSION: Normal examination. Dictated by: Marcel Nguyen M.D. on 03/02/2019 at 14:53 Approved by: Marcel Nguyen M.D. on 03/02/2019 at 14:59 Normal [facility] ER URINE PROFILEon 9 Bilirubin [Mass/Vol] Negative Normal NEGATIVE [facility] Comment on above: Performed By: #### GALEN RANGEL #### [facility] [address] [place] [address] [employer] BLOOD LARGE Normal NEGATIVE [facility] Comment on above: Performed By: #### GALEN RANGEL #### [facility] [address] [address] [employer] Clarity (U) CLEAR Normal [facility] Comment on above: Performed By: #### GALEN RANGEL #### [facility] [address] [address] [employer] Color (U) YELLOW Normal YELLOW [facility] Comment on above: Performed By: #### GALEN RANGEL #### [facility] [address] [address] [employer] ERUAHD A micrscopic examination will be performed if indicated. Normal [facility] Comment on above: Performed By: #### KEVEN RANGELRO #### [facility] [address] [place] [address] [employer] Glucose [Mass/Vol] Negative Normal NEGATIVE [facility] Comment on above: Performed By: #### Magui CARROLL UMICRO #### [facility] [address] [place], [place] [address] [employer] Ketones Ql (U) Negative Normal NEGATIVE [facility] Comment on above: Performed By: #### Magui CARROLL UMICRO #### [facility] [address] [place] [address] [employer] Nitrite Ql (U) Negative Normal NEGATIVE [facility] Comment on above: Performed By: #### KEVEN RANGELRO #### [facility] [address] [place] [address] [employer] pH (Bld) 8.0 Normal 5-9 [facility] Comment on above: Performed By: #### KEVEN RANGELRO #### [facility] [address] [place] [address] [employer] Protein (U) [Mass/Vol] 100 mg/dL Normal [facility] Comment on above: Performed By: #### MEENAKSHI RANGELICRO #### [facility] [address] [place] [address] [employer] SPEC GRAVITY 1.020 Normal 1.005-<=1.025 [facility] Comment on above: Performed By: #### MEENAKSHI RANGELICRO #### [facility] [address] [place] [address] [employer] UR MICRO IND INDICATED Normal [facility] Comment on above: Performed By: #### KEVEN RANGELRO #### [facility] [address] [place] [address] [employer] Urobilinogen Qn (U) 1.0 EU/dl Normal [facility] Comment on above: Performed By: #### KEVEN RANGELRO #### [facility] [address] [place], [place] [address] [employer] WBC (Bld) [#/Vol] TRACE Normal NEGATIVE [facility] Comment on above: Performed By: #### GALEN RANGEL #### [facility] [address] [place], [place] [address] [employer] LIPASEon 03-02-2019 Lipase [Catalytic activity/Vol] 134.0 U/L Normal 23.0-300.0 [facility] Comment on above: Performed By: #### L IPA, BMP #### [facility] [address] [place], [place] [address] [employer] PROF CHEM 8 (BAS METB)on Anion gap [Moles/Vol] 15.0 mmol/L Normal [facility] Comment on above: Performed By: #### L IPA, BMP #### [facility] [address] [place], [place] [address] [employer] Calcium [Mass/Vol] 9.5 mg/dL Normal 8.4-10.2 [facility] Comment on above: Performed By: #### L IPA, BMP #### [facility] [address] [place], [place] [address] [employer] Chloride [Moles/Vol] 103 mmol/L Normal 98-107 [facility] Comment on above: Performed By: #### L IPA, BMP #### [facility] [address] [place], [place] [address] [employer] CO2 [Moles/Vol] 23.7 mmol/L Normal 22.0-30.0 [facility] [place] [facility] Comment on above: Performed By: #### L IPA, BMP #### [facility] [address] [place], [place] [address] [employer] Creatinine [Mass/Vol] 1.10 mg/dL Normal 0.66-1.25 [facility] Comment on above: Performed By: #### L IPA, BMP #### [facility] [address] [place], [place] [address] [employer] EGFR-AF DANISH >60 Normal >=60 [facility] [place] [facility] Comment on above: Performed By: #### L IPA, BMP #### [facility] [address] [place], [place] [address] [employer] EGFR-NON AF DANISH >60 Normal >=60 [facility] Comment on above: Performed By: #### L IPA, BMP #### [facility] [address] [place], [place] [address] [employer] Glucose [Mass/Vol] 118 mg/dL Critically high 74-106 [facility] Comment on above: Performed By: #### L IPA, BMP #### [facility] [address] [id number] [employer] Potassium [Moles/Vol] 3.7 mmol/L Normal 3.4-5.0 [facility] Comment on above: Performed By: #### L IPA, BMP #### [facility] [address] [place], [place] [address] [employer] Sodium [Moles/Vol] 138 mmol/L Normal 137-145 [facility] Comment on above: Performed By: #### L IPA, BMP #### [facility] [address] [place], [place] [address] [employer] Urea nitrogen [Mass/Vol] 9.0 mg/dL Normal 9.0-20.0 [facility] Comment on above: Performed By: #### L IPA, BMP #### [facility] [address] [place], [place] [address] [employer] Urea nitrogen/Creatinine [Mass ratio] 8.2 mg/mg Normal [facility] Comment on above: Performed By: #### L IPA, BMP #### [facility] [address] [place], [place] [address] [employer] URINE MICROSCOPIC ONLYon Bacteria LM.HPF (Urine sed) [#/Area] NONE SEEN Normal NONE SEEN [facility] Comment on above: Performed By: #### GALEN RANGEL #### [facility] [address] [place], [place] [address] [employer] CAST NONE SEEN Normal NONE SEEN [facility] Comment on above: Performed By: #### GALEN RANGEL #### [facility] [address] [phone] [employer] Crystals LM Nom (Urine sed) NONE SEEN Normal NONE SEEN [facility] Comment on above: Performed By: #### GALEN RANGEL #### [facility] [address] [place] [address] [employer] CULTURE NOT INDICATED Normal [facility] Comment on above: Performed By: #### KEVEN RANGELRO #### [facility] [address] [id number] [employer] Epithelial cells LM.HPF (Urine sed) [#/Area] RARE Normal [facility] Comment on above: Performed By: #### GALEN RANGEL #### [facility] [address] [place], [place] [address] [employer] MUCOUS NONE SEEN Normal NONE SEEN [facility] Comment on above: Performed By: #### GALEN RANGEL #### [facility] [address] [place], [place] [address] [employer] RBC (U) [#/Vol] 20-50 Normal 0-2 [facility] Comment on above: Performed By: #### KEVEN RANGELRO #### [facility] [address] [place], [place] [address] [employer] WBC (Bld) [#/Vol] 2-5 Normal NONE SEEN [facility] Comment on above: Performed By: #### KEVEN RANGELRO #### [facility] [address] [place], [place] [address] [employer] XR ABD FLAT UP/PA Casey 03-02 XR ABD FLAT UP/PA CH Patient: ALBERTO GERMAIN Exam Date: 03/02/2019 : 1990 Gender:M Ordering : DR IZA ZENG D.O. Admission #: [id number] Family : DR DALJIT PEDRO D.O. Order #: [id number] CLICK HERE TO VIEW EXAM RADIOLOGY REPORT PROCEDURE: RADIOGRAPH ABDOMEN FLAT/UPRIGHT AND PA CHEST COMPARISON: None. INDICATIONS: Acute left lower quadrant abdominal pain FINDINGS: LUNGS: No infiltrate, pneumothorax, or pleural effusion. MEDIASTINUM: No abnormal widening. BOWEL GAS PATTERN: Non-obstructed. Moderate stool in the right colon FREE AIR: None. CALCIFICATIONS: None significant. BONES: No fracture or visible bone lesion. Minimal dextrocurvature OTHER: Negative. CONCLUSION: 1. Clear lungs 2. Nonobstructive bowel gas pattern Dictated by: Ari Jimenez M.D. on 03/02/2019 at 13:15 Approved by: Ari Jimenez M.D. on 03/02/2019 at 13:17 Normal [facility] T4on 12-22-2018 T4 [Mass/Vol] 8.30 ug/dL Normal 5.53-11.[address] [facility] Comment on above: Performed By: #### T 4, TSH #### [facility] [address] [place], [place] [address] [employer] TSHon 12-22-2018 TSH Qn 2.189 uIU/mL Normal 0.470-4.[address] [facility] Comment on above: Performed By: #### T 4, TSH #### [facility] [address] [id number] [employer] TSH Qn SEE BELOW Normal [facility] Comment on above: Result Comment: <0.3 4 UIU/ml HYPERTHYROID 0.34-5.60 UIU/ml EUTHYROID >5.60 UIU/ml HYPOTHYROID Performed By: #### T 4, TSH #### [facility] [address] [place] [address] [employer] Vital Signs Date Time Vital Sign Value Performing Clinician Lowelli litcarlos 06-05-2023 18:48-0500 Body temperature 97.7 [degF] DO Konstantin Tupa Work Phone: [facility] 06-05-2023 18:48-0500 Diastolic blood pressure 78 mm[Hg] DO Konstantin Tupa Work Phone: [facility] 06-05-2023 18:48-0500 Heart rate 64 /min DO Konstantin Tupa Work Phone: [facility] 06-05-2023 18:48-0500 Respiratory rate 20 /min DO Konstantin Tupa Work Phone: [facility] 06-05-2023 18:48-0500 SaO2% (BldA) [Mass fraction] 94 % DO Konstantin Khan Work Phone: [facility] 06-05-2023 18:48-0500 Systolic blood pressure 117 mm[Hg] DO Konstantin Khan Work Phone: [facility] 06-05-2023 12:38-0500 Body height 185.42 cm DO Konstantin Khan Work Phone: [facility] 06-05-2023 12:38-0500 Body weight 109.7 kg DO Konstantin Khan Work Phone: [facility] 10-13-2022 02:36-0400 Heart rate 65 /min Jefe Osborne MD Work Phone: [facility] [employer] 10-13-2022 02:36-0400 Respiratory rate 13 /min Jefe Osborne MD Work Phone: [facility] 10-13-2022 02:36-0400 SaO2% (BldA) [Mass fraction] 97 % Jefe Osborne MD Work Phone: [facility] 10-13-2022 01:38-0400 Body height 182.9 cm Jefe Osborne MD Work Phone: [facility] [employer] 10-13-2022 01:38-0400 Body mass index (BMI) [Ratio] 33.28 kg/m2 Jefe Osborne MD Work Phone: [facility] 10-13-2022 01:38-0400 Body temperature 98.1 [degF] Jefe Osborne MD Work Phone: [facility] 10-13-2022 01:38-0400 Body weight 111.31 kg Jefe Osborne MD Work Phone: [facility] 10-13-2022 01:38-0400 Diastolic blood pressure 81 mm[Hg] Jefe Osborne MD Work Phone: [facility] 10-13-2022 01:38-0400 Systolic blood pressure 134 mm[Hg] Jefe Osborne MD Work Phone: [facility] 01-16-2022 15:16-0400 Body height 182.9 cm Andrew Connors MD Work Phone: [facility] 01-16-2022 15:16-0400 Body mass index (BMI) [Ratio] 29.16 kg/m2 Andrew Connors MD Work Phone: [facility] 01-16-2022 15:16-0400 Body temperature 98.29 [degF] Andrew Connors MD Work Phone: [facility] 01-16-2022 15:16-0400 Body weight 97.52 kg Andrew Connors MD Work Phone: [facility] 01-16-2022 15:16-0400 Diastolic blood pressure 93 mm[Hg] Andrew Connors MD Work Phone: [facility] 01-16-2022 15:16-0400 Heart rate 89 /min Andrew Connors MD Work Phone: [facility] 01-16-2022 15:16-0400 Respiratory rate 16 /min Andrew Connors MD Work Phone: [facility] 01-16-2022 15:16-0400 SaO2% (BldA) [Mass fraction] 98 % Andrew Connors MD Work Phone: [facility] 01-16-2022 15:16-0400 Systolic blood pressure 125 mm[Hg] Andrew Connors MD Work Phone: [facility] 01-08-2022 00:11-0400 Body height 182.9 cm Ligia Joseph MD Work Phone: [facility] 01-08-2022 00:11-0400 Body mass index (BMI) [Ratio] 29.7 kg/m2 Ligia Joseph MD Work Phone: [facility] 01-08-2022 00:11-0400 Body temperature 98.71 [degF] Ligia Joseph MD Work Phone: [facility] 01-08-2022 00:11-0400 Body weight 99.34 kg Ligia Joseph MD Work Phone: [facility] 01-08-2022 00:11-0400 Diastolic blood pressure 74 mm[Hg] Ligia Joseph MD Work Phone: [facility] 01-08-2022 00:11-0400 Heart rate 79 /min Ligia Joseph MD Work Phone: [facility] 01-08-2022 00:11-0400 Respiratory rate 18 /min Ligia Joseph MD Work Phone: [facility] 01-08-2022 00:11-0400 SaO2% (BldA) [Mass fraction] 98 % Ligia Joseph MD Work Phone: [facility] 01-08-2022 00:11-0400 Systolic blood pressure 124 mm[Hg] Ligia Joseph MD Work Phone: [facility] Encounters Encounter Date Encounter Type Care Provider Facility Start: 09-14-2024 End: 09-14-2024 ambulatory ANDREW Harris [facility] Start: 09-01-2024 End: 09-01-2024 ambulatory ANDREW Harris [facility] Start: 08-16-2024 End: 08-16-2024 ambulatory ANDREW [facility] Start: 08-02-2024 End: 08-02-2024 ambulatory ANDREW Harris [facility] Start: 07-21-2024 End: 07-21-2024 ambulatory ANDREW W [facility] Start: 07-12-2024 End: 07-12-2024 ambulatory ANDREW W [facility] Start: 07-04-2024 End: 07-04-2024 ambulatory ANDREW W [facility] Start: 06-28-2024 End: 06-28-2024 ambulatory ANDREW W [facility] Start: 06-20-2024 End: 06-20-2024 ambulatory ANDREW W [facility] Start: 05-23-2024 End: 05-23-2024 ambulatory ANDREW W [facility] Start: 05-19-2024 End: 05-19-2024 ambulatory ANDREW W [facility] Start: 05-12-2024 End: 05-12-2024 ambulatory ANDREW [facility] Start: 05-02-2024 End: 05-02-2024 ambulatory ANDREW Harris [facility] Start: 04-25-2024 End: 04-25-2024 ambulatory ANDREW [facility] Start: 04-21-2024 End: 04-21-2024 ambulatory ANDREW [facility] Start: 04-05-2024 End: 04-05-2024 ambulatory ANDREW [facility] Start: 03-27-2024 End: 03-27-2024 ambulatory ANDREW [facility] Start: 03-21-2024 End: 03-21-2024 ambulatory ANDREW [facility] Start: 03-17-2024 End: 03-17-2024 ambulatory ANDREW [facility] Start: 03-10-2024 End: 03-14-2024 Telephone encounter Camilla Camacho MD Work Phone: Ophthalmology Comment on above: Patient Question Start: 03-10-2024 End: 03-10-2024 ambulatory ANDREW [facility] Start: 02-25-2024 End: 02-25-2024 ambulatory ANDREW Harris [facility] Start: 02-11-2024 End: 02-11-2024 ambulatory ANDREW Harris [facility] Start: 01-26-2024 End: 01-26-2024 ambulatory ANDREW Harris [facility] Start: 01-07-2024 End: 01-07-2024 ambulatory ANDREW Harris [facility] Start: 12-22-2023 End: 12-22-2023 ambulatory ANDREW Harris [facility] Start: 12-14-2023 End: 12-14-2023 ambulatory ANDREW Harris [facility] Start: 11-29-2023 End: 11-29-2023 ambulatory ANDREW Harris [facility] Start: 11-12-2023 End: 11-12-2023 ambulatory ANDREW Harris [facility] Start: 11-04-2023 End: 11-04-2023 ambulatory ANDREW Harris [facility] Start: 10-29-2023 End: 10-29-2023 ambulatory ANDREW Harris [facility] Start: 10-20-2023 End: 10-20-2023 ambulatory ANDREW Harris [facility] Start: 10-14-2023 End: 10-14-2023 ambulatory ANDREW [facility] Start: 10-06-2023 End: 10-06-2023 ambulatory TEOFILO GALO Facility:[facility] Start: 10-06-2023 End: 10-06-2023 Patient encounter procedure Camilla Camacho MD Work Phone: Ophthalmology Comment on above: Acute macular neuror etinopathy (Primary Dx) Start: 09-27-2023 End: 09-27-2023 ambulatory ANDREW [facility] Start: 08-12-2023 End: 08-13-2023 ambulatory CHAPARRITA Randall [facility] Start: 08-12-2023 End: 08-12-2023 Subsequent hospital visit by physician Chaparrita Henderson DO Work Phone: [facility] Start: 06-16-2023 End: 06-19-2023 ambulatory JESUS RAJPUT [facility] Start: 06-11-2023 End: 06-12-2023 [facility] Start: 06-05-2023 End: 06-05-2023 Emergency department patient visit Konstantin Khan Facility:[facility] Start: 06-05-2023 End: 06-05-2023 Emergency department patient visit DO Konstantin Khan Work Phone: [facility] Work Phone: Start: 06-05-2023 End: 06-05-2023 Emergency department patient visit JEFE OSBORNE [facility] Start: 12-13-2022 End: 12-14-2022 ambulatory CHAPARRITA VERASSHARDA [facility] Start: 10-13-2022 End: 10-13-2022 [facility] Start: 10-13-2022 End: 10-13-2022 Emergency department patient visit Jefe Osborne MD Work Phone: [facility] ED Comment on above: Chest pain, pleuriti c (Primary Dx); Chest pain, unspecified type Start: 04-16-2022 End: 04-16-2022 Subsequent hospital visit by physician Kerri Pond PT Work Phone: [facility] Start: 04-02-2022 End: 04-02-2022 Subsequent hospital visit by physician Kerri Pond PT Work Phone: [facility] Comment on above: Arrived Start: 03-27-2022 End: 03-27-2022 Subsequent hospital visit by physician Kerri Pond PT Work Phone: [facility] Start: 03-24-2022 End: 03-24-2022 Subsequent hospital visit by physician Pratima Howard [facility] Comment on above: Arrived Start: 03-20-2022 End: 03-20-2022 Subsequent hospital visit by physician Kerri Pond PT Work Phone: [facility] Start: 03-17-2022 End: 03-17-2022 Subsequent hospital visit by physician Kerri Pond PT Work Phone: [facility] Comment on above: Arrived Start: 03-13-2022 End: 03-13-2022 Subsequent hospital visit by physician Pratima Howard [facility] Comment on above: Arrived Start: 03-11-2022 End: 03-11-2022 Subsequent hospital visit by physician Pratima Howard [facility] Start: 03-05-2022 End: 03-05-2022 Subsequent hospital visit by physician Kerri Pond PT Work Phone: [facility] Comment on above: Arrived Start: 01-16-2022 End: 01-16-2022 Emergency department patient visit Andrew Connors MD Work Phone: [facility] ED Comment on above: Acute exacerbation o f chronic low back pain (Primary Dx) Start: 01-08-2022 End: 01-08-2022 Emergency department patient visit Ligia Joseph MD Work Phone: [facility] ED Comment on above: Acute bilateral low back pain without sciatica (Primary Dx) Start: 05-02-2019 End: 05-02-2019 Patient encounter procedure DALJIT VIOLA Facility:[facility] Start: 03-02-2019 End: 03-02-2019 Patient encounter procedure DALJIT VIOLA Facility:[facility] Start: 01-02-2019 Patient encounter procedure DALJIT VIOLA Facility:[facility] Start: 12-22-2018 End: 12-23-2018 Patient encounter procedure DALJIT VIOLA Facility:[facility] Start: 12-22-2018 End: 12-22-2018 Patient encounter procedure DALJIT VIOLA Facility:[facility] Start: 12-21-2018 End: 12-21-2018 Patient encounter procedure DALJIT VIOLA Facility:[facility] Start: 12-12-2018 End: 12-12-2018 Patient encounter procedure DALJIT VIOLA Facility:[facility] Start: 12-03-2018 End: 12-03-2018 Patient encounter procedure DALJIT VIOLA Facility:[facility] Start: 11-13-2018 End: 11-13-2018 Patient encounter procedure [facility] Facility:[facility] Procedures Date Procedure Procedure Detail Performing Clinician Start: 05-23-2024 Follow-up visit Follow-up ANDREW REEDER Start: 10-06-2023 OCT ANGIOGRAPHY OU ( BOTH EYES) Teofilo Galo PA-C Work Phone: Start: 10-06-2023 Computerized ophthal monserrat imaging optic nerve Teofilo Galo PA-C Work Phone: Start: 10-06-2023 End: 10-06-2023 Computerized ophthalmic imaging retina Teofilo Galo PA-C Work Phone: Start: 08-12-2023 Hemoglobin glycosyla dung a1c Jesus Rajput MD Work Phone: Start: 06-05-2023 CT of head without contrast DO Konstantin Khan Work Phone: Start: 10-13-2022 Ecg routine ecg w/le ast 12 lds w/i&r Jefe Osborne MD Work Phone: Start: 10-13-2022 BASIC METABOLIC PANE L W/ REFLEX TO MG FOR LOW K Jefe Osborne MD Work Phone: Start: 10-13-2022 Fibrin dgradj produc ts d-dimer quantitative Jefe Osborne MD Work Phone: Start: 01-16-2022 Radex spine lumbosac ral minimum 4 views Andrew Connors MD Work Phone: Plan of Treatment Date Care Activity Detail Author Start: 10-20-2024 End: 03-29-2025 OCT MACULA CIRRUS OU (BOTH EYES) OCT MACULA CIRRUS OU (BOTH EYES) [facility] Imaging Routine Acute macular neuroretinopathy Expected: 10/20/2024, Expires: 03/29/2025 [facility] Work Phone: Comment on above: Expected: 10/20/2024 , Expires: 03/29/2025 Start: 06-30-[address] [facility] Start: 02-06-2024 Covid-19 Vaccine ( season) Covid-19 Vaccine ( season) [facility] Start: 02-06-2024 Influenza vaccination [facility] Start: 01-27-2024 End: 01-27-2024 Patient encounter procedure 01/27/2024 1:45 PM EDT Office Visit [facility] [address] [address] Camilla Camacho MD [address] [place] [address] Return in about 3 months (around 01/06/2024) for uveitis follow up in 3 months. Ophthalmology Comment on above: Return in about 3 mo nths (around 01/06/2024) for uveitis follow up in 3 months. Start: 08-30-2023 End: 08-30-2023 Patient encounter procedure 08/30/2023 8:20 AM EDT Office Visit [facility] [address] [place] [address] Chaparrita Henderson DO [address] [place] [phone] 2 mon follow up [facility] Comment on above: 2 mon follow up Start: 06-17-2023 Depression Monitoring Depression Mon itoring [facility] Start: 02-24-2023 Depression Monitoring Depression Mon itoring [facility] Start: 02-05-2023 Covid-19 Vaccine ( season) Covid-19 Vaccine ( season) [facility] Start: 01-05-2023 Influenza vaccination B ON [facility] Start: 04-16-2022 End: 04-16-2022 Patient encounter procedure 04/16/2022 Appointment Physical Therapy Kerri Pond, PT [address] [place] [address] [facility] Start: 04-02-2022 End: 04-02-2022 Patient encounter procedure 04/02/2022 Appointment Physical Therapy Kerri Pond, PT [address] [place] [address] [facility] Start: 03-27-2022 End: 03-27-2022 Patient encounter procedure 03/27/2022 Appointment Physical Therapy Kerri Pond, PT [address] [place] [address] [facility] Start: 03-24-2022 End: 03-24-2022 Patient encounter procedure 03/24/2022 Appointment Physical Therapy Pratima Howard [facility] Start: 03-20-2022 End: 03-20-2022 Patient encounter procedure 03/20/2022 Appointment Physical Therapy Kerri Pond, PT [address] [place] [place] [address] [facility] Start: 03-17-2022 End: 03-17-2022 Patient encounter procedure 03/17/2022 Appointment Physical Therapy Kerri Pond, PT [address] [place] [address] [facility] Start: 03-13-2022 End: 03-13-2022 Patient encounter procedure 03/13/2022 Appointment Physical Therapy Pratima Howard [facility] Start: 03-11-2022 End: 03-11-2022 Patient encounter procedure 03/11/2022 Appointment Physical Therapy Pratima Howard [facility] Start: 02-05-2022 Influenza vaccination Flu vaccine (# 1) [facility] Start: 01-05-2022 Influenza vaccination Flu vaccine (# 1) [facility] Start: 2009 DTaP/Tdap/Td vaccine (1 - Tdap) DTaP/Tdap/Td vaccine (1 - Tdap) [facility] Start: 2008 Anxiety Screening Anxiety Screening [facility] Start: 2008 Depression Screening Depression Scre ening [facility] Start: 2008 Hepatitis C [facility] Start: 2008 HIV screening HIV Screening [facility] Start: 2005 HIV screening HIV screen [facility] [employer] Start: 02-27-2003 Hepatitis B Vaccine (2 of 3 - 3-dose series) Hepatitis B Vaccine (2 of 3 - 3-dose series) [facility] Start: 2002 Depression Screen Depression Screen [facility] Start: 2001 Urine microalbumin profile DTaP,Tdap,Td Vaccine (5 - Tdap) [facility] Start: 10-20-1991 Varicella vaccine (1 of 2 - 2-dose childhood series) Varicella vaccine (1 of 2 - 2-dose childhood series) [facility] [employer] Start: 04-21-1991 COVID-19 Vaccine (#1) COVID-19 Vacci ne (#1) [facility] [employer] Start: 1990 Hepatitis B vaccine (1 of 3 - 3-dose series) Hepatitis B vaccine (1 of 3 - 3-dose series) [facility] End: 08-12-2023 Cryoglobulin [facility] Comment on above: Once for 1 Occurrenc es starting 08/12/2023 until 08/12/2023 EKG 12 Lead EKG 12 Lead ECG STAT 10/13/2022 1:55 AM EDT [facility] [employer] Work Phone: End: 10-14-2023 Exercise stress test study CARDIAC STRESS TEST EXERCISE ONLY [facility] Routine Chest pain, unspecified type 1 Occurrences starting 10/13/2022 until 10/14/2023 [facility] [employer] Work Phone: Comment on above: 1 Occurrences starti ng 10/13/2022 until 10/14/2023 End: 08-12-2023 HIV Screen [facility] Comment on above: Once for 1 Occurrenc es starting 08/12/2023 until 08/12/2023 End: 08-12-2023 IgM [Mass/volume] in Serum or Plasma [facility] [employer] Comment on above: Once for 1 Occurrenc es starting 08/12/2023 until 08/12/2023 Oxygen therapy [Minimum Data Set] Initiate Oxygen Therapy Protocol Respiratory Care Routine As Needed until discontinued starting 10/13/2022 [employer] Work Phone: Comment on above: As Needed until disc ontinued starting 10/13/2022 Patient Education Headache, Adult ED [facility] Work Phone: Patient referral [facility] Work Phone: End: 08-12-2023 Viscosity, Serum [employer] Work Phone: Comment on above: Once for 1 Occurrenc es starting 08/12/2023 until 08/12/2023 End: 10-13-2022 XR CHEST PORTABLE XR CHEST PORTABLE Imaging STAT Once for 1 Occurrences starting 10/13/2022 until 10/13/2022 [employer] Track Phone: Comment on above: Once for 1 Occurrenc es starting 10/13/2022 until 10/13/2022 XR CHEST PORTABLE XR CHEST KARINA BLE Imaging STAT 10/13/2022 1:52 AM EDT [employer] Work Phone: Immunizations Immunization Date Immunization Notes Care Provider Jael scott 09-03-2020 COVID-19 Ad26.COV2.S ([place]) DO Konstantin Khan Work Phone: [facility] Payers Date Payer Category Payer Medicaid [employer] [id number] 2022-Present [phone] [address] [place] [address] Medicaid [id number] 1990 Unknown [id number] 2.16.840.1.997216.3.579.2.593 1990 Unknown [id number] 2.16.840.1.244894.3.579.2.593 1990 Unknown [id number] 2.16.840.1.539953.3.579.2.593 1990 Unknown [id number] 2.16.840.1.613866.3.579.2.593 1990 Unknown [id number] 2.16.840.1.813139.3.579.2.593 1990 Unknown [id number] 2.16.840.1.372120.3.579.2.593 1990 Unknown [id number] 2.16.840.1.505604.3.579.2.593 1990 Unknown [id number] 2.16.840.1.378546.3.579.2.593 1990 Unknown [id number] 2.16.840.1.672652.3.579.2.593 1990 Unknown [id number] 2.16.840.1.079211.3.579.2.174 1990 Unknown [id number] 2.16.840.1.915258.3.579.2.174 1990 Unknown [id number] 2.16.840.1.323773.3.579.2.174 1990 Unknown [id number] 2.16.840.1.755267.3.579.2.174 1990 Unknown [id number] 2.16.840.1.124606.3.579.2.174 1990 Unknown [id number] 2.16.840.1.853933.3.579.2.174 1990 Unknown [id number] 2.16.840.1.961786.3.579.2.174 1990 Unknown [id number] 2.16.840.1.864620.3.579.2.1286 1990 Unknown [id number] 2.16.840.1.164222.3.579.2.1286 1990 Unknown [id number] 2.16.840.1.348264.3.579.2.1286 1990 Unknown [id number] 2.16.840.1.133407.3.579.2.1285 1990 Unknown [id number] 2.16.840.1.949787.3.579.2.1285 1990 Unknown [id number] 2.16.840.1.736520.3.579.2.1285 1990 Unknown [id number] 2.16.840.1.426918.3.579.2.1285 1990 Unknown [id number] 2.16.840.1.452628.3.579.2.1285 1990 Unknown [id number] 2.16.840.1.941658.3.579.2.1285 1990 Unknown [id number] 2.16.840.1.208985.3.579.2.1285 1990 Unknown [id number] 2..840.1.681510.3.579.2.1285 1990 Unknown [id number] 2.16.840.1.688506.3.579.2.1285 1990 Unknown [id number] 2.16.840.1.571222.3.579.2.1285 1990 Unknown [id number] 2.16.840.1.051345.3.579.2.1285 1990 Unknown [id number] 2.16.840.1.749130.3.579.2.1285 1990 Unknown [id number] 2.16.840.1.869230.3.579.2.1285 1990 Unknown [id number] 2.16.840.1.232599.3.579.2.1285 1990 Unknown [id number] 2.16.840.1.264247.3.579.2.1285 1990 Unknown [id number] 2.16.840.1.248722.3.579.2.1285 1990 Unknown [id number] 2.16.840.1.638559.3.579.2.1285 1990 Unknown [id number] 2.16.840.1.235231.3.579.2.1285 1990 Unknown [id number] 2.16.840.1.574419.3.579.2.1285 1990 Unknown [id number] 2.16.840.1.155085.3.579.2.1285 1990 Unknown [id number] 2.16.840.1.182616.3.579.2.1285 1990 Unknown [id number] 2..840.1.262181.3.579.2.1285 1990 Unknown [id number] 2.840.1.007784.3.579.2.1285 1990 Unknown [id number] 2.840.1.555174.3.579.2.1285 1990 Unknown [id number] 2.840.1.407632.3.579.2.1285 1990 Unknown [id number] 2..840.1.243142.3.579.2.1285 1990 Unknown [id number] 2.840.1.060853.3.579.2.1285 1990 Unknown [id number] 2.16840.1.907327.3.579.2.1285 1990 Unknown [id number] 2.16840.1.194217.3.579.2.1285 1990 Unknown [id number] 2.16840.1.621724.3.579.2.128 1959 Self-pay 1959 Unknown [id number] Unknown [id number] 2.16840.1.334327.3.579.2.531 Social History Date Type Detail Facility Start: 01-08-2022 End: 10-06-2023 Tobacco smoking status NHIS Never smoked tobacco [facility] Start: 01-08-2022 End: 10-06-2023 Tobacco use and exposure Smokeless tobacco non-user [employer] [employer] Work Phone: Start: 01-08-2022 End: 08-14-2022 History SDOH Alcohol Frequency 2 [facility] Work Phone: Start: 1990 Sex Assigned At Not on file B ON [employer] Work Phone: Start: 12-29-2021 End: 01-16-2022 Exposure to SARS-CoV-2 (event) Not sure [facility] Work Phone: Start: 02-24-2022 End: 08-14-2022 History SDOH Financial 5 [facility] Work Phone: Start: 02-24-2022 End: 08-14-2022 History SDOH Food Worry 1 [employer] Work Phone: Start: 1990 Sex Assigned At Male [facility] Start: 06-04-2023 End: 01-27-2024 History of Social function [facility] Start: 06-04-2023 End: 01-27-2024 Alcohol Use Disorder Identification Test - Consumption [AUDIT-C] [facility] How often to you hav e a drink containing alcohol? Never [facility] How many standard dr inks containing alcohol do you have on a typical day? Patient does not drink [facility] (I/We) worried wheth er (my/our) food would run out before (I/we) got money to buy more. Never true [facility] At any time in the p ast 12 months, were you homeless or living in group home [including now]? No [facility] NEGATED: Highlighted rowStart: NINF History of tobacco use Passive smoker [facility] Clinical Notes 03-11-2022 to 03-14-2024 Telephone Encounter - Carly Verdugo - 03/14/2024 9:10 AM EDTTelephone Encounter - Carly Verdugo - 03/14/2024 9:10 AM EDTTelephone Encounter - Carly Verdugo - 03/13/2024 1:35 PM EDT Note Date & Type Note Facility 03-14-2024 Telephone encounter Note Called and left VM for pt to let him know. It is not an operation it is taking steroid pills. But this late into the disease process it would not work. Would only work during acute episode PK [facility] 03-14-2024 Miscellaneous Notes Called and left VM for pt to let him know. It is not an operation it is taking steroid pills. But this late into the disease process it would not work. Would only work during acute episode PK Called pt back he wants to know if there is any corticosteroid operation that can be done? I am familiar with this article as well as other case reports along the same lines. AMN has no known treatment even when not related to COVID. Steroids have been tried with limited success. PK Called pt to let him know. He said the article he was reading is freshly new in regards to his exact condition. This is from July 2023. He wanted to know if you could go over this article attached and discuss with him if it is possible? https://www.frontiersin.org/journ als/medicine/articles/10.3389/fme d.2024.6634558/full We have no real data to help us with this question. Certainly it is either an inflammatory or vascular condition so steroids may help if there are no contraindications. There is not enough data to recommend it in patients who we see with this issue. Alberto Germain [phone] (home) Dr. 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 This was given to you in the manilla folder last week and also scanned in pt chart. You can call the pt back or Dr. Henderson on her cell at [phone]. LV 10/06/23 No FV scheduled Assessment & Plan Camilla Camacho MD filed at 10/06/2023 4:02 PM Status: Signed New patient referred by Lola Galo PA-C. Previously was receiving care in [place], [place]. 1. Resolving Acute Macular Neuroretinopathy, both eyes - Acutely developed bilateral central vision loss early 06/2023; prior to this, he had more minor visual symptoms; his symptoms have since very gradually improved - Describes/draws his scotomas as a paracentral broken ring right eye and a central [place] left eye (contains a pinhole through which he can see); denies peripheral vision changes - Had preceding COVID-19 in 05/29, more recent episode of vomiting; denies HTN previously or when he went to the ED for his visual symptoms - saw outside ophthalmology, was found to have numerous cotton wool spots initially; there was concern for ischemia and 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 - had systemic testing: normal echo, MRI Brain (other than sequelae of migraine), negative autoimmune labs (APLS, Anti-nuclear antibody), negative HIV, normal A1c, normal clotting factors, normal SPEP - OCT mac with patchy areas of EZ attenuation and middle retinal thinning right eye > left eye (seems somewhat improved compared to prior outside scans) - OCT nerve with split inf RNFL bundle (otherwise normal RNFL) both eyes; patches of GCL thinning right eye > left eye - IR shows AMN - 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 > left eye - fluorescein angiography attempted, but patient had episode of syncope - OCT-A with irregularly enlarged deep LIZETTE with additional patches of deep plexus loss right eye > left eye - Differential diagnosis includes AMN > PAMM (due to deeper involvement on OCT, possibly related to COVID), Purtcher (doubt) , subtle RAOs; no signs of uveitic/vasculitic cause - No intervention at this time, may gradually continue to improve - Follow-up in 3 month for nation visual field (HVF) 24-2 both eyes, OCT mac, OCT-A, fluorescein angiography, IR photos I have confirmed and edited as necessary the relevant ophthalmic history, ROS, and the clinical/neuro exam findings as obtained by others. I have seen and examined this patient. I have discussed the case and the management of this patient's care with the Resident/Fellow, if applicable. I also have reviewed and agree with the assessment and plan as stated above and agree with all of its relevant components on 10/06/2023 Camilla Camacho MD Professor of Ophthalmology [facility] [employer] documented in this encounter [facility] 03-13-2024 Telephone encounter Note Called pt back he wants to know if there is any corticosteroid operation that can be done? I am familiar with this article as well as other case reports along the same lines. AMN has no known treatment even when not related to COVID. Steroids have been tried with limited success. PK [facility] 03-13-2024 Telephone encounter Note Called pt to let him know. He said the article he was reading is freshly new in regards to his exact condition. This is from July 2023. He wanted to know if you could go over this article attached and discuss with him if it is possible? https://www.frontiersin.org/journ als/medicine/articles/10.3389/fme d.2024.9676928/full [facility] 03-13-2024 Telephone encounter Note We have no real data to help us with this question. Certainly it is either an inflammatory or vascular condition so steroids may help if there are no contraindications. There is not enough data to recommend it in patients who we see with this issue. [facility] 03-10-2024 Telephone encounter Note Alberto Mahan Jessa [phone] (home) Dr. 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 This was given to you in the manilla folder last week and also scanned in pt chart. You can call the pt back or Dr. Henderson on her cell at [phone]. LV 10/06/23 No FV scheduled Assessment & Plan Camilla Camacho MD filed at 10/06/2023 4:02 PM Status: Signed New patient referred by Lola Galo PA-C. Previously was receiving care in [place], [place]. 1. Resolving Acute Macular Neuroretinopathy, both eyes - Acutely developed bilateral central vision loss early 06/2023; prior to this, he had more minor visual symptoms; his symptoms have since very gradually improved - Describes/draws his scotomas as a paracentral broken ring right eye and a central [place] left eye (contains a pinhole through which he can see); denies peripheral vision changes - Had preceding COVID-19 in 05/29, more recent episode of vomiting; denies HTN previously or when he went to the ED for his visual symptoms - saw outside ophthalmology, was found to have numerous cotton wool spots initially; there was concern for ischemia and 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 - had systemic testing: normal echo, MRI Brain (other than sequelae of migraine), negative autoimmune labs (APLS, Anti-nuclear antibody), negative HIV, normal A1c, normal clotting factors, normal SPEP - OCT mac with patchy areas of EZ attenuation and middle retinal thinning right eye > left eye (seems somewhat improved compared to prior outside scans) - OCT nerve with split inf RNFL bundle (otherwise normal RNFL) both eyes; patches of GCL thinning right eye > left eye - IR shows AMN - 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 > left eye - fluorescein angiography attempted, but patient had episode of syncope - OCT-A with irregularly enlarged deep LIZETTE with additional patches of deep plexus loss right eye > left eye - Differential diagnosis includes AMN > PAMM (due to deeper involvement on OCT, possibly related to COVID), Purtcher (doubt) , subtle RAOs; no signs of uveitic/vasculitic cause - No intervention at this time, may gradually continue to improve - Follow-up in 3 month for nation visual field (HVF) 24-2 both eyes, OCT mac, OCT-A, fluorescein angiography, IR photos I have confirmed and edited as necessary the relevant ophthalmic history, ROS, and the clinical/neuro exam findings as obtained by others. I have seen and examined this patient. I have discussed the case and the management of this patient's care with the Resident/Fellow, if applicable. I also have reviewed and agree with the assessment and plan as stated above and agree with all of its relevant components on 10/06/2023 Camilla Camacho MD Professor of Ophthalmology [facility] [employer] [facility] 10-06-2023 Note Date of Procedure 10/06/2023. Hotshot Superintendent Information Organ Teacher: Violeta Moreon. Start time: 1:02 PM. Stop time: 1:02 PM. Interpretation Right Eye Findings include IS/OS junction, Atrophy; Negative for Intraretinal fluid, Subretinal fluid. Left Eye Findings include IS/OS junction, Atrophy; Negative for Intraretinal fluid, Subretinal fluid. Interval Change Right Eye Initial. Left Eye Initial. ZEISS 10-06-2023 Note Date of Procedure 10/06/2023. Hotshot Superintendent Information Organ Teacher: af. Stop time: 2:25 PM. VONNIE Manzanares . Notes split inf RNFL bundle (otherwise normal RNFL) both eyes; patches of GCL thinning right eye > left eye ZEISS 10-06-2023 Note Date of Procedure 10/06/2023. Hotshot Superintendent Information Organ Teacher: Violeta Moreno. Start time: 1:01 PM. Stop time: 1:01 PM. Disc Right Eye Normal. Left Eye Normal. Macula Right Eye Normal. Left Eye Normal. Periphery Right Eye Normal. Left Eye Normal. ZEISS 10-06-2023 Note Date of Procedure 10/06/2023. Hotshot Superintendent Information Organ Teacher: af. Stop time: 2:26 PM. VONNIE Manzanares . Interpretation Right Eye Findings include Enlarged LIZETTE, Nonperfusion (Deep Plexus). Left Eye Findings include Enlarged LIZETTE, Nonperfusion (Deep Plexus). ZEISS 10-06-2023 Note HNO ID: [id number] Author: CAMILLA CAMACHO MD Service: ? Author Type: Physician Type: Progress Notes Filed: 10/06/2023 16:02 Note Text: New patient referred by Lola Galo PA-C. Previously was receiving care in [place], [place]. 1. Resolving Acute Macular Neuroretinopathy, both eyes - Acutely developed bilateral central vision loss early 06/2023; prior to this, he had more minor visual symptoms; his symptoms have since very gradually improved - Describes/draws his scotomas as a paracentral broken ring right eye and a central [place] left eye (contains a pinhole through which he can see); denies peripheral vision changes - Had preceding COVID-19 in 05/29, more recent episode of vomiting; denies HTN previously or when he went to the ED for his visual symptoms - saw outside ophthalmology, was found to have numerous cotton wool spots initially; there was concern for ischemia and 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 - had systemic testing: normal echo, MRI Brain (other than sequelae of migraine), negative autoimmune labs (APLS, Anti-nuclear antibody), negative HIV, normal A1c, normal clotting factors, normal SPEP - OCT mac with patchy areas of EZ attenuation and middle retinal thinning right eye > left eye (seems somewhat improved compared to prior outside scans) - OCT nerve with split inf RNFL bundle (otherwise normal RNFL) both eyes; patches of GCL thinning right eye > left eye - IR shows AMN - 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 > left eye - fluorescein angiography attempted, but patient had episode of syncope - OCT-A with irregularly enlarged deep LIZETTE with additional patches of deep plexus loss right eye > left eye - Differential diagnosis includes AMN > PAMM (due to deeper involvement on OCT, possibly related to COVID), Purtcher (doubt) , subtle RAOs; no signs of uveitic/vasculitic cause - No intervention at this time, may gradually continue to improve - Follow-up in 3 month for nation visual field (HVF) 24-2 both eyes, OCT mac, OCT-A, fluorescein angiography, IR photos I have confirmed and edited as necessary the relevant ophthalmic history, ROS, and the clinical/neuro exam findings as obtained by others. I have seen and examined this patient. I have discussed the case and the management of this patient's care with the Resident/Fellow, if applicable. I also have reviewed and agree with the assessment and plan as stated above and agree with all of its relevant components on 10/06/2023 Camilla Camacho MD Professor of Ophthalmology [facility] [employer] [facility] 10-06-2023 History of Present illness Narrative New patient referred by Lola Galo PA-C. Previously was receiving care in [place], [place]. 1. Resolving Acute Macular Neuroretinopathy, both eyes - Acutely developed bilateral central vision loss early 06/2023; prior to this, he had more minor visual symptoms; his symptoms have since very gradually improved - Describes/draws his scotomas as a paracentral broken ring right eye and a central [place] left eye (contains a pinhole through which he can see); denies peripheral vision changes - Had preceding COVID-19 in 05/29, more recent episode of vomiting; denies HTN previously or when he went to the ED for his visual symptoms - saw outside ophthalmology, was found to have numerous cotton wool spots initially; there was concern for ischemia and 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 - had systemic testing: normal echo, MRI Brain (other than sequelae of migraine), negative autoimmune labs (APLS, Anti-nuclear antibody), negative HIV, normal A1c, normal clotting factors, normal SPEP - OCT mac with patchy areas of EZ attenuation and middle retinal thinning right eye > left eye (seems somewhat improved compared to prior outside scans) - OCT nerve with split inf RNFL bundle (otherwise normal RNFL) both eyes; patches of GCL thinning right eye > left eye - IR shows AMN - 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 > left eye - fluorescein angiography attempted, but patient had episode of syncope - OCT-A with irregularly enlarged deep LIZETTE with additional patches of deep plexus loss right eye > left eye - Differential diagnosis includes AMN > PAMM (due to deeper involvement on OCT, possibly related to COVID), Purtcher (doubt) , subtle RAOs; no signs of uveitic/vasculitic cause - No intervention at this time, may gradually continue to improve - Follow-up in 3 month for nation visual field (HVF) 24-2 both eyes, OCT mac, OCT-A, fluorescein angiography, IR photos I have confirmed and edited as necessary the relevant ophthalmic history, ROS, and the clinical/neuro exam findings as obtained by others. I have seen and examined this patient. I have discussed the case and the management of this patient's care with the Resident/Fellow, if applicable. I also have reviewed and agree with the assessment and plan as stated above and agree with all of its relevant components on 10/06/2023 Camilla Camacho MD Professor of Ophthalmology [facility] [employer] documented in this encounter [facility] 04-16-2022 History of Present illness Narrative [facility] Date: 04/16/2022 Patient Name: Alberto Germain : 1990 Pt No Showed Appt- Phoned patient regarding missed appt. States he had another conflicting appt at that time. Discussed current status and will not schedule additional appts. Patient will continue with independent program and follow up with Dr. Henderson. Will send progress note /discharge summary KERRI POND, PT Date: 04/16/2022 documented in this encounter [facility] [employer] Phone: 04-16-2022 Hospital course Narrative Images from the original note were not included. [facility] Discharge Summary Patient: Alberto Germain : 1990 Referring Provider Chaparrita Henderson Diagnosis: Bilateral low back pain Date Treatment Initiated: 03/05/22 Date of Last Treatment: 04/02/22 PT Visit Information Onset Date: 02/24/22 PT Insurance Information: [place] Total # of Visits to Date: 5 Plan of Care/Certification Expiration Date: 04/30/22 No Show: 2 Canceled Appointment: 2 Treatment Received: Patient Education/HEP, Back Education, and Therapeutic Exercise Assessment: Patient has completed 5 treatment sessions consisting of education on lumbar/LE stretching and strengthening ex along with education on body mechanics. He is compliant with his home program and overall pleased with progress noting less pain on daily basis. Based on his status, plan to discharge from further PT and allow patient to continue on an independent basis. Thank you for this referral. Reason for Discharge: Optimal Function Achieved Comments: Thank you for this referral KERRITAMI POND, PT Date: 04/16/2022 documented in this encounter [facility] [employer] Phone: 04-02-2022 History of Present illness Narrative Images from the original note were not included. [facility] Daily Note Date: 04/02/2022 Patient Name: Alberto Germain : 1990 (31 y.o.) Referring Provider: Chaparrita Henderson Diagnosis: Bilateral low back pain Treatment Diagnosis: LBP Onset Date: 02/24/22 PT Insurance Information: [place] Per Physician Order Total # of Visits to Date: 5 No Show: 1 Canceled Appointment: 1 Plan of Care/Certification Expiration Date: 04/30/22 Pre-Treatment Pain: 1-07/17 Assessment: Patient pleased with progress noting less pain on daily basis and at times may go several days with minimal to no pain. Compliant with HEP; added planks/side planks and squats to HEP. Will allow patient to continue x 2 weeks and then follow up to assess status and upgrade additional HEP as needed. Plan Continue with current plan of care Exercises/Modalities/Manual: See DocFlow Sheet Education: Issued HEP [id number] Goals (Total # of Visits to Date: 5) Short Term Goals Time Frame for Short Term Goals: 6 visits Short Term Goal 1: Educate on home program of trunk/hip stretching and strengthening ex-met Mcfp Goals Time Frame for Web Operations Lead Goals : 12 visits Mcfp Goal 1: Decrease subjective lumbar/hip pain to < 2/10 with sitting activities or prolonged standing Mcfp Goal 2: Decrease LE radicular symptoms by > 75% in frequency and/or severity Web Operations Lead Goal 3: Educate on proper lifting techniques and ergonomic ideas for sitting and standing Post Treatment Pain: 06/16 Time In: 1410 Time Out : 1435 Timed Code Treatment Minutes: 25 Minutes Total Treatment Time: 30 Minutes KERRI POND PT Date: 04/02/2022 documented in this encounter [facility] [employer] Work Phone: 03-27-2022 History of Present illness Narrative [facility] Date: 03/27/2022 Patient Name: Alberto Germain : 1990 Pt No Showed Appt KERRI POND, PT Date: 03/27/2022 documented in this encounter [facility] [employer] Phone: 03-24-2022 History of Present illness Narrative Images from the original note were not included. [facility] Daily Note Date: 03/24/2022 Patient Name: Alberto Germain : 1990 (31 y.o.) Referring Provider (secondary): Chaparrita Henderson Diagnosis: Bilateral low back pain Treatment Diagnosis: LBP Onset Date: 02/24/22 PT Insurance Information: [place] Per Physician Order Total # of Visits to Date: 4 No Show: 1 Canceled Appointment: 1 Plan of Care/Certification Expiration Date: 04/30/22 Pre-Treatment Pain: 06/16 Assessment Assessment: Pt reports he continues to have less pain. Notes minimal paresthesia right lateral thigh and tightnessBilateral flank, R>L . Reviewed qped 3 way stretch to target tight areas. Progressed HEP with pointer dog ex . Will cont. Plan Continue with current plan of care Exercises/Modalities/Manual: See DocFlow Sheet Goals (Total # of Visits to Date: 4) Short Term Goals Time Frame for Short Term Goals: 6 visits Short Term Goal 1: Educate on home program of trunk/hip stretching and strengthening ex-met Mcfp Goals Time Frame for Web Operations Lead Goals : 12 visits Mcfp Goal 1: Decrease subjective lumbar/hip pain to < 2/10 with sitting activities or prolonged standing Web Operations Lead Goal 2: Decrease LE radicular symptoms by > 75% in frequency and/or severity Web Operations Lead Goal 3: Educate on proper lifting techniques and ergonomic ideas for sitting and standing Post Treatment Pain: 06/16 Time In: 1248 Time Out : 1318 Timed Code Treatment Minutes: 30 Minutes Total Treatment Time: 30 Minutes Pratima Howard DRYWALL STRIPPER Date: 03/24/2022 documented in this encounter [facility] [employer] Work Phone: 03-17-2022 History of Present illness Narrative Images from the original note were not included. [facility] Daily Note Date: 03/17/2022 Patient Name: Alberto Germain : 1990 (31 y.o.) Referring Provider (secondary): Chaparrita Henderson Diagnosis: Bilateral low back pain Treatment Diagnosis: LBP Onset Date: 02/24/22 PT Insurance Information: [place] Per Physician Order Total # of Visits to Date: 3 No Show: 1 Canceled Appointment: 0 Plan of Care/Certification Expiration Date: 04/30/22 Pre-Treatment Pain: 08/14 Assessment Assessment: Patient reports compliance with previous HEP and notes reduction of radicular pain at night and with activity. Pleased with progress seen thus far. Issued written HEP for sidelying clamshells and hip abd/hip circles to progress with strengthening. Discussed proper hydration and limit sweets/sugars due to inflammatory process. Progress with trunk/hip stab ex Plan Continue with current plan of care Exercises/Modalities/Manual: See DocFlow Sheet Education: Issued written HEP Access [id number] Goals (Total # of Visits to Date: 3) Short Term Goals Time Frame for Short Term Goals: 6 visits Short Term Goal 1: Educate on home program of trunk/hip stretching and strengthening ex Mcfp Goals Time Frame for Web Operations Lead Goals : 12 visits Web Operations Lead Goal 1: Decrease subjective lumbar/hip pain to < 2/10 with sitting activities or prolonged standing Mcfp Goal 2: Decrease LE radicular symptoms by > 75% in frequency and/or severity Web Operations Lead Goal 3: Educate on proper lifting techniques and ergonomic ideas for sitting and standing Post Treatment Pain: 08/14 Time In: 1350 Time Out : 1430 Timed Code Treatment Minutes: 40 Minutes Total Treatment Time: 40 Minutes KERRI POND PT Date: 03/17/2022 documented in this encounter [employer] Phone: 03-11-2022 History of Present illness Narrative [facility] Date: 03/11/2022 Patient Name: Alberto Germain : 1990 Pt No Showed Appt Left voicemail requesting confirmation for next appt Pratima Howard DRYWALL STRIPPER Date: 03/11/2022 Physical Therapy [facility] Date: 03/11/2022 Patient Name: Alberto Germain : 1990 Patient called and he was not able to make his appointment. Will return on the next scheduled appointment. Mindy Poole Shock Date: 03/11/2022 documented in this encounter [facility] [employer] Work Phone: Evaluation note Diagnosis Acute bilateral low back pain without sciatica- Primary documented in this encounter [employer] Phone: evaluation note* Diagnosis Acute exacerbation of chronic low back pain- Primary documented in this encounter [employer] Work Phone: evaluation note* Diagnosis Chest pain, pleuritic- Primary Painful respiration Chest pain, unspecified type documented in this encounter [facility] [employer] Work Phone: evaluation noteNo assessment information available [facility] Work Phone: Evaluation note* Diagnosis Acute macular neuroretinopathy- Primary [facility]* Attachments The following attachments cannot be sent through Care Everywhere. * Back: Stretches: Exercises (Azerbaijani) [facility] [employer] Work Phone: Hospital Discharge instructions* Attachments The following attachments cannot be sent through Care Everywhere. * Back Pain (Azerbaijani) [facility] [employer] Phone: Hospital Discharge instructions* Attachments The following attachments cannot be sent through Care Everywhere. * Pleurisy (Azerbaijani) * Chest Pain (Azerbaijani) documented in this [facility] [employer] Phone: Summary Purpose Family History No Family History Records Found Relationship Condition Age at Onset Recorded Date/T zoran Not Specified No pertinent family history Unknown Advance Directives No Advanced Directives Records Found Advance Directive Response Recorded Date/ Time Advance Directives No August 07 5:46am Reason for Referral Specialty Diagnoses / Procedures Referred By Felice royal Referred To Contact Cardiology Diagnoses Chest pain, unspecified type Procedures CARDIAC STRESS TEST EXERCISE ONLY Jefe Osborne MD [address] [place] [address] [place] [address] Referral ID Status Reason Start Date Expiration Date Visits Re quested Visits Authorized [id number] Open 10/13/2022 10/13/2023 1 1 Chief Complaint and Reason for Visit Chief Complaint blurry vision, heada george Additional Source Comments (unrecognized sect ion and content) No Status Records FoundNo Status Records FoundNo Status Records FoundNo Status Records FoundNo Status Records Found INFORMATION SOURCE (unrecogn ized section and content) DATE CREATED AUTHOR 05/05/2019 [facility] DATE CREATED AUTHOR AUTHOR'S ORGANIZ ATION 06/18/2023 [facility] DATE CREATED AUTHOR AUTHOR'S ORGANIZ ATION 08/17/2023 [facility] DATE CREATED AUTHOR AUTHOR'S ORGANIZ ATION 03/16/2024 [facility] DATE CREATED AUTHOR AUTHOR'S ORGANIZ ATION 09/16/2024 [facility] Reason for Visit (unrecogniz ed section and content) Reason Comments Back Pain LOWER BACK PAIN SINC E ON AND OFF FOR 1 YEAR. jUST RETURNED FROM [facility] WHERE HE THREW BACK OUT. Reason Comments Back Pain Here recently for ba ck pain and has appt on 02/03/22. Has increased again the past couple weeks. Specialty Diagnoses / Procedures Referred By Felice royal Referred To Contact Physical Therapist / Physical Therapy Diagnoses Chronic bilateral low back pain with bilateral sciatica Chaparrita Henderson, [address] [place] [address] [facility] [address] [place] [address] Referral ID Status Reason Start Date Expiration Date V isits Requested Visits Authorized [id number] Open Specialty Services Required 02/24/2022 02/24/2023 1 1 Reason Comments Chest Pain L sided chest pain t hat radiates down left shoulder. Shortness of breath while explaining pain. Reason Comments Retinal Evaluation Reason Comments Patient Question Ordered Prescriptions (unrec ognized section and content) Prescription Sig Dispensed Refills Start Date End Da te cyclobenzaprine (FLEXERIL) 5 MG tablet Take 1 tablet by mouth 2 times daily as needed for Muscle spasms 20 tablet 0 01/08/2022 01/18/2022 naproxen (NAPROSYN) 375 MG tablet Take 1 tablet by mouth in the morning and 1 tablet in the evening. Take with meals. 20 tablet 1 01/08/2022 Prescription Sig Dispensed Refills Start Date End Da te baclofen (LIORESAL) 10 MG tablet 1 or 2 tablets 3 times a day as needed for spasm 30 tablet 0 01/16/2022 ketorolac (TORADOL) 10 MG tablet Take 1 tablet by mouth every 8 hours as needed for Pain 15 tablet 0 01/16/2022 Scheduled Active and Recently Administ ered Medications (unrecognized section and content) Medication Order 01/06/2022 01/07/2022 01/08/2022 cyclobenzaprine (FLEXERIL) tablet 10 mg (COMPLETED) 10 mg, Oral, ONCE, 1 dose, On Tiesha 01/08/22 at 0030 0025 (Given - Provid er: Emily Prajapati RN) naproxen (NAPROSYN) tablet 375 mg (COMPLETED) 375 mg, Oral, ONCE, 1 dose, On Tiesha 01/08/22 at 0030 0025 (Given - Provid er: Emily Prajapati RN) Scheduled Medication Order 01/14/2022 01/15/2022 01/16/2022 ketorolac (TORADOL) injection 30 mg (COMPLETED) Ketorolac is contraindicated in patients with advanced renal impairment and in patients at risk of renal failure due to volume depletion. For 65 years of age and older OR weight less than 50 kg, use 15 mg IV every 6 hours; MAX dose: 60 mg/day. Dose greater than 30 mg must be administered via intramuscular route. Do not administer for more than 5 days., 30 mg, IntraMUSCular, ONCE, 1 dose, On Wed01/16/22 at 1546 1537 (Given - Provid er: Chani Saenz, L[place]) orphenadrine (NORFLEX) injection 60 mg (COMPLETED) 60 mg, IntraMUSCular, ONCE, 1 dose, On Wed01/16/22 at 1545 1537 (Given - Provid er: Chani Saenz RN) Scheduled Medication Order 10/11/2022 10/12/2022 10/13/2022 aspirin chewable tablet 324 mg (COMPLETED) 324 mg, Oral, ONCE, 1 dose, On Wed10/13/22 at 9717 0151 (Given - Provid er: Nick Elkins RN) Care Teams (unrecognized sec tion and content) Private Investigator Surveillance Relationship Specialty Start Date End Date Daljit Pedro DO [address] [place] [address] PCP - General 08/11/14 Private Investigator Surveillance Relationship Specialty Start Date End Date Daljit Pedro DO [address] [place] [address] PCP - General 08/11/14 Private Investigator Surveillance Relationship Specialty Start Date End Date Chaparrita Henderson, DO [address] [place] [address] PCP - General [facility] 02/24/22 Private Investigator Surveillance Relationship Specialty Start Date End Date Chaparrita Henderson, DO [address] [place] [address] PCP - General [facility] 02/24/22 Private Investigator Surveillance Relationship Specialty Start Date End Date Chaparrita Henderson, DO [address] [place] [address] PCP - General Family Medicine 02/24/22 Private Investigator Surveillance Relationship Specialty Start Date End Date Chaparrita Henderson DO [address] [place] [place] [address] PCP - General Family Medicine 02/24/22 Private Investigator Surveillance Relationship Specialty Start Date End Date Chaparrita Henderson DO [address] [place] [address] PCP - General Family Medicine 02/24/22 Team Status: Active Member Role Status Dates Chaparrita Henderson MD Primary Care Provider Active Team Status: Inactive Member Role Status Dates Konstantin Khan DO Emergency Provider Active Chaparrita Henderson MD Primary Care Provider Active Private Investigator Surveillance Relationship Specialty Start Date End Date Chaparrita Henderson DO [address] [place] [address] PCP - General Family Medicine 02/24/22 Private Investigator Surveillance Relationship Specialty Start Date End Date Chaparrita Henderson MD [address] [place] [address] PCP - General Family Medicine 09/27/23 Chaparrita Henderson MD [address] [place] [address] Referring Family Medicine 09/27/23 Private Investigator Surveillance Relationship Specialty Start Date End Date Chaparrita Henderson MD [address] [place] [address] PCP - General Family Medicine 09/27/23 Chaparrita Henderson MD [address] [place] [phone] Referring Family Medicine 09/27/23 Goals (unrecognized section and content) Goals may be documented in a n alternate section Source Comments (unrecognize d section and content) In the event this informatio n is protected by the [facility] Confidentiality of Alcohol and Drug Abuse Patient Records regulations: The Federal rules restrict any use of the information to criminally investigate or prosecute any alcohol or drug abuse patient.[facility] the event this information is protected by the Federal Confidentiality of Alcohol and Drug Abuse Patient Records regulations: The Federal rules restrict any use of the information to criminally investigate or prosecute any alcohol or drug abuse patient.[facility] FOR RECORDS PERTAINING TO PATIENTS WHO ARE OR HAVE BEEN ENROLLED IN A CHEMICAL DEPENDENCY/SUBSTANCEABUSE PROGRAM, SOME INFORMATION MAY BE OMITTED. This clinical summary was aggregated from multiple sources. Caution should be exercised in using it in the provision of clinical care. This summary normalizes information from multiple sources, and as a consequence, information in this document may materially change the coding, format and clinical context of patient data. In addition, data may be omitted in some cases. CLINICAL DECISIONS SHOULD BE BASED ON THE PRIMARY CLINICAL RECORDS. [facility] [employer] [facility]. provides no warranty or guarantee of the accuracy or completeness of information in this document.
--- NOTE | 2024-09-22 13:50 | ED_ITS ---
HPI HPI - General Adult General Chief complaint: Back Pain/Injury Stated complaint: LOWER BACK PAIN Time Seen by Provider: 09/22/24 13:33 Source: patient Mode of arrival: walk-in Limitations: no limitations History of Present Illness HPI narrative: 33-year-old male presents for lower back pain. She has had this for about a week and he was seen here several days ago. At that time he was prescribed prednisone. He has not had any imaging. He states now he is getting a numb sensation in his right leg only. He did not have any injury and he has never had back issues before. He tried following up with his PCP but they were on vacation Related Data Home Medications ?Medication ?Instructions ?Recorded ?Confirmed escitalopram oxalate 10 mg tablet mg 09/22/24 Previous Rx's ?Medication ?Instructions ?Recorded cyclobenzaprine 10 mg tablet 10 mg PO TID PRN muscle spasm 3 09/17/24 days #9 tabs prednisone 20 mg tablet 40 mg (2 x 20 mg) PO ONCE 5 days 09/17/24 #10 tabs prednisone 10 mg tablet See Rx Instructions .Route 09/22/24 .COMPLEX #30 tabs Allergies Allergy/AdvReac Type Severity Reaction Status Date / Time amoxicillin Allergy Severe Hives Verified 09/22/24 13:17 Opioid HPI Opioid Management Most Recent Opioid Data: Last Pain Scale 4 09/22/24 14:16 09/22/24 Last MAR Pain Assessment 09/22/24 14:16 Review of Systems ROS Narrative A ten point review of systems is negative except as noted above. PFSH PFSH Social History Little interest or pleasure in doing things: not at all Feeling down, depressed, or hopeless: not at all Exam Narrative Exam Narrative: Nurses note and vital signs reviewed and patient is not hypoxic. General: The patient appears well and in no apparent distress. Patient is resting comfortably on cart. Skin: Warm, dry, no pallor noted. There is no rash noted. Head: Normocephalic, atraumatic Eye: Normal conjunctiva, no drainage Ears, Nose, Mouth, and Throat: oral mucosa is moist. Nares patent. Cardiovascular: Regular Rate and Rhythm Respiratory: Patient is in no distress, no accessory muscle use, lungs are clear to auscultation, no wheezing, rales or rhonchi Back: No bruise or rash or palpable tenderness. GI: Soft and nontender Musculoskeletal: The patient has no evidence of calf tenderness, no pitting edema, symmetrical pulses noted bilaterally Neurological: A&O, normal speech; upper and lower extremity strength intact and symmetric Psychiatric: Cooperative Constitutional Vital Signs, click to edit/add: Last Vital Signs Temp 98.8 F 09/22/24 13:12 Pulse 80 09/22/24 13:12 Resp 18 09/22/24 13:12 BP 117/83 09/22/24 13:12 Pulse Ox 98 09/22/24 13:12 O2 Del Method Room Air 09/22/24 13:12 Course Vital Signs Vital signs: Vital Signs Temperature 98.8 F 09/22/24 13:12 Pulse Rate 80 09/22/24 13:12 Respiratory Rate 18 09/22/24 13:12 Blood Pressure 117/83 09/22/24 13:12 Pulse Oximetry 98 09/22/24 13:12 Oxygen Delivery Method Room Air 09/22/24 13:12 Temperature 98.8 F 09/22/24 13:12 Pulse Rate 80 09/22/24 13:12 Respiratory Rate 18 09/22/24 13:12 Blood Pressure 117/83 09/22/24 13:12 Pulse Oximetry 98 09/22/24 13:12 Oxygen Delivery Method Room Air 09/22/24 13:12 Medical Decision Making MDM Narrative Medical decision making narrative: X-rays show no acute process but indicate moderate narrowing of the space of L5- S1. Findings are discussed with the patient and he is placed on another longer course of prednisone and he will follow-up with his doctor. Treatment diagnosis and follow-up were discussed with the patient Differential Diagnosis Differential Diagnosis: Lumbar radiculopathy, herniated disc, sciatica, lumbar fracture Imaging Data Lumbar x-ray: Radiologist's impression: No acute process, moderate narrowing of the space of L5-S1 Discharge Plan Discharge Chief Complaint: Back Pain/Injury Clinical Impression: Lumbar radiculopathy Patient Disposition: Home, Self-Care Time of Disposition Decision: 14:42 Condition: Good Mode of Transportation: Private Vehicle Prescriptions / Home Meds: New prednisone 10 mg tablet See Rx Instructions .ROUTE .COMPLEX Qty: 30 0RF Rx Instructions: 4 by mouth daily for three days then 3 by mouth daily for three days then 2 by mouth daily for three days then 1 by mouth daily for three days No Action escitalopram oxalate 10 mg tablet cyclobenzaprine 10 mg tablet 10 mg PO TID PRN (Reason: muscle spasm) 3 Days Qty: 9 0RF prednisone 20 mg tablet 40 mg PO ONCE 5 Days Qty: 10 0RF Print Language: Czech Instructions: Lumbar Radiculopathy (ED) Referrals: Chaparrita Henderson MD [Primary Care Provider] - 1 week
[2024-09-22] MEDS: KETOROLAC TROMETHAMINE 60 MG/2 ML VIAL IM (14:16)
== END 2024-09-22 15:07 | disposition home or self-care (01) ==
PROVIDERS: Emergency Provider Emergency Medicine; PCP Student in an Organized Health Care Education/Training Program
DX: M54.16 Radiculopathy, lumbar region (principal)
CPT/HCPCS: 72100; 96372; 99284; J1885

== ENCOUNTER 2024-11-24 16:27 | Emergency (ER) | payer OTHER, SELFPAY ==
[2024-11-24 16:34] VITALS: BP 121/88; PULSE 110; TEMP 36.9; O2SAT 96; BMI 32.3
--- OUTSIDE RECORDS SUMMARY | 2024-11-24 16:51 | XMS_ITS | Encounter Summary ---
Author Organization [facility] Address [address] [place] [address] Care Team Providers Care Restaurant Shift Supervisor Name Role Phone Chaparrita Henderson Primary Care Provider Encounter Details Date Type Department Care Team (Late st Contact Info) Description 10/12/2024 Orders Only [facility] [place] [address] [place] [phone] ProviderAlla MD Social History Tobacco Use Types Packs/Day Years Used Date Smoking Tobacco: Never Passive Smoke Exposure: Never Smokeless Tobacco: Never [facility] Utilities Answer Date Recorded In the past 12 months has e electric, gas, oil, or water company threatened to shut off services in your home? No 08/04/2024 AUDIT-C Answer Date Recorded Q1: How often do you have a drink containing alcohol? Never 06/04/2023 Q2: How many drinks containi ng alcohol do you have on a typical day when you are drinking? Patient does not drink Q3: How often do you have si x or more drinks on one occasion? Never 06/04/2023 Overall Financial Resource Strain (CARDIA) Answe r Date Recorded How hard is it for you to pa y for the very basics like food, housing, medical care, and heating? Not hard at all 09/15/2023 PHQ-2 Answer Date Recorded PHQ-9 Total Score 0 06/21/2024 Hunger Vital Sign Answer Date Recorded Within the past 12 months, y ou worried that your food would run out before you got the money to buy more. Never true 08/04/19 25 Within the past 12 months, t he food you bought just didn't last and you didn't have money to get more. Never true 08/04/2024 PRAPARE - Transportation Answer Date Re corded In the past 12 months, has l ack of transportation kept you from medical appointments or from getting medications? No 07/09 In the past 12 months, has l ack of transportation kept you from meetings, work, or from getting things needed for daily living? No 08/04/2024 Housing Stability Vital Sign Answer Constantin e Recorded Unable to Pay for Housing in the Last Year Not o n file 09/15/2023 Number of Places Lived in the Last Year Not on f ile 09/15/2023 In the last 12 months, was t here a time when you did not have a steady place to sleep or slept in a skilled nursing (including now)? No 09/15/2023 Housing Stability Vital Sign Answer Constantin e Recorded In the last 12 months, was t here a time when you were not able to pay the mortgage or rent on time? No 08/04/2024 In the past 12 months, how m any times have you moved where you were living? 0 08/04/2024 At any time in the past 12 m [facility], were you homeless or living in a skilled nursing (including now)? No 08/04/2024 Food Insecurity Answer Date Recorded Within the past 12 months, y ou worried that your food would run out before you got the money to buy more. 1 08/04/2024 Within the past 12 months, t he food you bought just didn't last and you didn't have money to get more. 1 08/04/2024 Interpersonal Safety Domain Source: IP Abuse Scr eening Answer Date Recorded Read-Only, Retired: Physical Abuse Denies 06/04/2023 Read-Only, Retired: Verbal Abuse Denies 06/04/2023 Read-Only, Retired: Emotional abuse Denies 06/04/2023 Read-Only, Retired: Financial Abuse Denies 06/04/2023 Read-Only, Retired: Sexual abuse Denies 06/04/2023 Sex and Gender Information Value Date Recorded Sex Assigned at Not on file Legal Sex Male 2:52 PM EST Gender Identity Not on file Sexual Orientation Not on file documented as of this encounter Plan of Treatment Upcoming Encounters Date Type Department Care Team (Late st Contact Info) Description 11/28/2024 10:20 AM EDT Office Visit [facility] [place] [address] [place] [phone] Chaparrita Henderson DO [address] [facility] [place] [phone] 1 month f/u back pain documented as of this encounter Procedures Procedure Name Priority Date/Time Associated Diagnosis Comments XR LUMBOSACRAL SPINE 2 OR 3 VW Routine 09/22/2024 7:58 AM EDT documented in this encounter Results * XR Lumbar Spine 2 or 3 VW (09/22/2024 7:58 AM EDT) Anatomical Region Laterality Modality Radiographic Monserrat ging Historical Provider MD [facility] Final Result documented in this encounter Visit Diagnoses Not on filedocumented in this encounter Care Teams Restaurant Shift Supervisor Relationship Specialty Start Date End Date Chaparrita Henderson DO [address] [facility] [place] [phone] PCP - General Family Medicine 02/24/22 documented as of this encounter
[2024-11-24] MEDS: ALPRAZOLAM 0.5 MG TABLET PO (17:16)
--- NOTE | 2024-11-24 18:35 | ED_ITS ---
HPI - Anxiety General Chief Complaint: Anxiety Stated Complaint: anxiety attack Time Seen by Provider: 11/24/24 16:48 Mode of arrival: walk-in History of Present Illness HPI narrative: The patient is coming to the ER with history of possible anxiety and panic on e scitalopram, this, after he had an episode today where he does not know why he is having a panic attack, patient is requesting something to calm him down he denies any other symptoms he is not homicidal or suicidal Related Data Home Medications ?Medication ?Instructions ?Recorded ?Confirmed escitalopram oxalate 10 mg tablet 10 mg 09/22/24 Previous Rx's ?Medication ?Instructions ?Recorded alprazolam 0.5 mg tablet (Xanax) 0.25 mg (1/2 x 0.5 mg ) PO ONCE PRN 11/24/24 panic attack(s) 3 days #3 tabs Allergies Allergy/AdvReac Type Severity Reaction Status Date / Time amoxicillin Allergy Severe Hives Verified 11/24/24 16:33 Review of Systems ROS Status of ROS 10 or more systems reviewed and unremark able except as noted in history and below PFSH PFSH Social History Little interest or pleasure in doing things: not at all Feeling down, depressed, or hopeless: not at all Exam Narrative Exam Narrative: Nurses notes and vital signs reviewed and patient is not hypoxic. General: Well-appearing and in no apparent distress. Skin: Warm, dry, no pallor noted. No rash. Head: Normocephalic, atraumatic. Neck: Supple, non-tender. Cardiovascular: Regular Rate and Rhythm without murmur, gallop or rub. Respiratory: No accessory muscle use or respiratory distress. Lungs are clear to auscultation, no wheezing, rales or rhonchi Chest Wall: no tenderness Back: No midline thoracic or lumbar vertebral tenderness. No CVA tenderness Musculoskeletal: normal ROM, no calf or popliteal tenderness, no lower extremi ty edema/swelling GI: Abdomen is soft, non-distended. Normal bowel sounds. No masses appreciated. No tenderness to palpation. No rebound, guarding, or rigidity noted. Neurological: A&O x4. No cranial nerve dysfunction observed. No truncal ataxia. Moves all extremities. Sensation intact. Psychiatric: Cooperative and anxious Constitutional Vital Signs, click to edit/add: Last Vital Signs Temp 98.4 F 11/24/24 16:34 Pulse 110 H 11/24/24 16:34 Resp 16 11/24/24 16:34 BP 121/88 11/24/24 16:34 Pulse Ox 96 11/24/24 16:34 O2 Del Method Room Air 11/24/24 16:34 Course Vital Signs Vital signs: Vital Signs Temperature 98.4 F 11/24/24 16:34 Pulse Rate 110 H 11/24/24 16:34 Respiratory Rate 16 11/24/24 16:34 Blood Pressure 121/88 11/24/24 16:34 Pulse Oximetry 96 11/24/24 16:34 Oxygen Delivery Method Room Air 11/24/24 16:34 Temperature 98.4 F 11/24/24 16:34 Pulse Rate 110 H 11/24/24 16:34 Respiratory Rate 16 11/24/24 16:34 Blood Pressure 121/88 11/24/24 16:34 Pulse Oximetry 96 11/24/24 16:34 Oxygen Delivery Method Room Air 11/24/24 16:34 MDM - Anxiety MDM Narrative Medical decision making narrative: The patient will be provided with Xanax 1 dose today for panic attack he also was instructed about the importance of reaching out to his psychiatrist and primary care on Wednesday for further evaluation of his treatment The patient also provided with 2 pills of Xanax and I did explain to him that those will be as needed in case he needed over the weekend but I did explain to him also the fact that Xanax is a benzodiazepine that could cause addiction and he need to be cautious The patient is to follow up with primary care physician in next 2-3 days or to return to the emergency department should any of the signs or symptoms worsen or new symptoms develop. The patient agrees with the following Diagnosis and Treatment plan and the patient will be discharged home. Discharge Plan Discharge Chief Complaint: Anxiety Clinical Impression: Panic attack Patient Disposition: Home, Self-Care Time of Disposition Decision: 17:07 Condition: Good Prescriptions / Home Meds: New alprazolam [Xanax] 0.5 mg tablet 0.25 mg PO ONCE PRN (Reason: panic attack(s)) 3 Days Qty: 3 0RF No Action escitalopram oxalate 10 mg tablet 10 mg Print Language: Honduran Instructions: Panic Attack (ED) Referrals: Chaparrita Henderson MD [Primary Care Provider] - 1 week Discharge Date/Time: 11/24/24 17:18
== END 2024-11-24 17:18 | disposition home or self-care (01) ==
PROVIDERS: Emergency Provider Emergency Medicine; PCP Student in an Organized Health Care Education/Training Program
DX: F41.0 Panic disorder [episodic paroxysmal anxiety] (principal)
CPT/HCPCS: 99283

== ENCOUNTER 2024-12-28 05:21 | Emergency (ER) | payer OTHER, SELFPAY ==
[2024-12-28 05:25] VITALS: BP 129/89; PULSE 80; TEMP 36.6; O2SAT 97; BMI 31.0
--- OUTSIDE RECORDS SUMMARY | 2024-12-28 05:30 | XMS_ITS | CCD ---
Author Organization [facility] Care Team Providers Care Media Developer Name Role Phone HOUSE, DALJIT Primary Care Unavailable AZUCENA, IZA Latham Admitting Unavailable REINVAHID, IZA Latham Attending Unavailable BLANCHE, JEREMIAH Consulting [...] REINECK, IZA Latham Admitting Unavailable REINECK, IZA Latahm Attending Unavailable REINECK, IZA Latham Consulting Unavailable OG, ARI Orellana Consulting Unavailable YASMANY, MARCEL Jean Consulting Unavailable HOUSE, DALJIT Primary Care Unavailable HAY, DARVIN Admitting Unavailable HAY, DARVIN Attending Unavailable ANDREW KEYS Consulting Unavailable House Daljit DE LEÓN Primary Care Provider Chaparrita Tran DO Primary Care Provider Chaparrita Tran DO Primary Care Provider DO Konstantin Khan Emergency Provider MD Chaparrita Tran Primary Care Provider [phone] Konstantin Khan Attending Unavailable Konstantin Khan Admitting Unavailable Chaparrita Tran Primary Care Unavailable Chaparrita Tran DO Primary Care Provider Beatriz CABAN Chaparrita L Primary Care Provider [phone] Beatriz CABAN Chaparrita L Unavailable [phone] TEOFILO GALO Attending Unavailable YONLEY, CHAPARRITA L [...] Unavailable YONLEY, CHAPARRITA L Primary Care Unavailable LLILI, ANDREW Harris Attending Unavailable YONLEY, CHAPARRITA L [...] Unavailable YONLEY, CHAPARRITA L Primary Care Unavailable ANDREW REEDER Attending Unavailable YONLEY, CHAPARRITA L Referring Unavailable YONLEY, CHAPARRITA L Primary Care Unavailable LILLIANDREW SMALLS Attending Unavailable YONLEY, CHAPARRITA L Referring Unavailable YONLEY, CHAPARRITA L Primary Care Unavailable YONLEY, CHAPARRITA L Referring Unavailable YONLEY, CHAPARRITA L Primary Care Unavailable YONLEY, CHAPARRITA L Referring Unavailable YONLEY, CHAPARRITA L Primary Care Unavailable Allergies Allergy Classification Reported Allergen(s) Allergy Type Date of Onset Reaction(s) Facility (3 sources) Amoxicillin; Translations: [AMOXICILLIN] Drug Allergy 4 Hives [facility] Repository (1 source) Polymyxin B Drug allergy (disorder) 4 [facility] Repository (17 sources) Amoxicillin Drug Allergy 5 Hives, Unknown [facility] (1 source) Amoxicillin Drug Allergy 3 [facility] Repository (6 sources) lamoTRIgine; Translations: [LAMOTRIGINE] Drug Allergy 3 Palpitations, Other: See Comments [facility] (3 sources) Polymox; Translations: [POLYMOX] Drug Allergy 7 Unknown [facility] (2 sources) Polymyxin B Drug Allergy 4 [facility] Medications Current Medications Medication Drug Class(es) Dates Sig (Normalized) Sig (Original) ALPRAZolam 0.25 mg oral tablet (2 sources) Benzodiazepine Start: 12-19-2024 End: 12-29-2024 take 3 tablets by mouth three times daily as needed ALPRAZolam (XANAX) 0.25 MG tablet Indications: Anxiety Take 1 tablet by mouth 3 times daily as needed for Anxiety for up to 10 days. Max Daily Amount: 0.75 mg 20 tablet 12/19/2024 12/29/2024 Active baclofen 10 mg oral tablet (10 sources) gamma-Aminobutyric Acid-ergic Agonist Start: 01-16-2022 baclofen (LIORESAL) 10 [...] Vitamin D Cholecalciferol (VITAMIN D) 50 MCG (1999 UT) CAPS capsule Take by mouth 0 Active [...] dose, O n Tiesha 01/08/22 at 0030 escitalopram 20 mg oral tablet (2 sources) Serotonin Reuptake Inhibitor Start: 12-21-2024 take 1 tablet by mouth once daily escitalopram (LEXAPRO) 20 MG tablet Take 1 tablet by mouth daily 90 tablet 1 12/21/2024 Active FLUoxetine 20 mg oral capsule (3 sources) Serotonin Reuptake Inhibitor Start: 09-15-2023 take 1 capsule by mouth once FLUoxetine (PROZAC) 20 mg capsule Indications: Acute macular neuroretinopathy Take 1 capsule by mouth every afternoon. 09/15/2023 Active Start: 09-30-2022 take 1 capsule by mo uth once daily FLUoxetine (PROZAC) 40 MG capsule [...] Start: 01-16-2022 take 1 tablet by hosea every eight hours as needed for pain ketorolac (TORADOL) 10 MG tablet Take 1 tablet by mouth every 8 hours as needed for Pain 15 tablet 0 01/16/2022 Active take 1 tablet by hosea every six hours as needed keTORolac (TORADOL) [...] EYE-BOTH Daily 2.5 November 09, 2020 11:00pm [place]-3 Fatty Acids (FISH OIL PO) (3 sources) [place]-3 Fatty Acids (FISH OIL PO) Take by mouth Active [place]-3 Fatty Ac ids (FISH OIL PO) Take by mouth 0 Active polymyxin b 68074 unt/ml / trimethoprim 1 mg/ml ophthalmic solution [...] Discontinued 300 MG PO Four times daily 40 August 08, 2019 12:00am October 27, 2019 11:50pm meclizine hydrochloride 25 mg oral tablet (1 source) Antiemetic Start: 11-13-2019 End: 10-25-2020 take 25 mg by mouth three times daily Meclizine Discontinued 25 MG PO Three times daily 14 November 12, 2019 11:00pm October 25, 2020 [...] tropicamide 1 % 1 Drop (MYDRIACYL) Problems Problem Classification Problem Date Documented Date Episodic/Chronic Abdominal pain (4 sources) Unspecified abdominal pain; Translations: [UNSPECIFIED ABDOMINAL PAIN] Onset: 03-02-2019 Episodic Acute and chronic tonsillitis (1 source) Peritonsillar abscess; Translations: [Peritonsillar abscess] 08-08-2019 Episodic Anxiety disorders (17 sources) Panic disorder [episodic paroxysmal anxiety]; Translations: [Fear of other medical care] Onset: 01-21-2017 10-28-2019 Chronic Anxiety disorders (1 source) Obsessive-compulsive disorder, unspecified; Translations: [OBSESSIVE-COMPULSIVE D/O UNSPEC] Onset: 05-05-2019 Blindness and vision defects (1 source) Blurring of visual image; Translations: [Other visual disturbances] 06-05-2023 Episodic Cardiac dysrhythmias (9 sources) Tachycardia, unspecified; Translations: [Palpitations] Onset: 12-22-2018 12-21-2024 Episodic Conditions associated with dizziness or vertigo (1 source) Dizziness; Translations: [Dizziness and giddiness] 11-13-2019 Episodic Disorders usually diagnosed in infancy childhood or adolescence (17 sources) Asperger's syndrome; Translations: [Asperger's disorder] Onset: 01-21-2017 03-01-2022 Chronic Genitourinary symptoms and ill-defined conditions (1 source) Hematuria, unspecified; Translations: [HEMATURIA UNSPECIFIED] Onset: 03-06-2019 Episodic Headache; including migraine (2 sources) Migraine; Translations: [Migraine, unspecified, not intractable, without status migrainosus] Onset: 06-05-2023 06-05-2023 Chronic Headache; including migraine (1 source) Headache; Translations: [Headache] 06-05-2023 Episodic Inflammation; infection of eye (except that caused by tuberculosis or sexually transmitteddisease) (1 source) Bacterial conjunctivitis; Translations: [Unspecified conjunctivitis] 11-10-2020 Episodic Mood disorders (18 sources) Recurrent major depressive episodes, moderate ; Translations: [Major depressive disorder, recurrent, moderate] Onset: 01-21-2017 Resolved: 12-21-2024 03-01-2022 Chronic Nonspecific chest pain (1 source) Chest pain; Translations: [Chest pain, unspecified] Episodic Other lower respiratory disease (1 source) Pleuritic pain; Translations: [Pleurodynia] Episodic Other screening for suspected conditions (not mental disorders or infectious disease) (2 sources) Patient encounter status; Translations: [Encounter for screening for cardiovascular disorders] Onset: 12-21-2024 12-21-2024 Episodic Other upper respiratory disease (4 sources) [...] [Acute pharyngitis, unspecified] 08-08-2019 Episodic Personality disorders (3 sources) Borderline personality disorder; Translations: [Borderline personality disorder] Onset: 03-08-2023 03-08-2023 Chronic Retinal detachments; defects; vascular occlusion; and retinopathy (2 sources) Other specified retinal disorders; Translations: [Other retinal disorders] Onset: 10-06-2023 10-06-2023 Chronic Spondylosis; intervertebral disc disorders; other back problems (2 sources) Acute low back pain; Translations: [Acute bilateral low back pain without sciatica] Episodic Viral infection (1 source) Viral disease; Translations: [Viral infection, unspecified] 08-08-2019 Episodic Results Test Name Value Interpretation Reference Range Facility CBC with Auto Differentialon 12-21-2024 Basophils (Bld) [#/Vol] 0.05 10*3/uL [facility] [employer] Basophils/100 WBC (Bld) 1 % 0 - 2 % [facility] Eosinophils (Bld) [#/Vol] 0.14 10*3/uL [facility] Eosinophils/100 WBC (Bld) 2 % 0 - 5 % [facility] Erythrocyte distribution width (RBC) [Ratio] 12.4 % 12.1 - 15.2 % [facility] Hematocrit (Bld) [Volume fraction] 44.2 % 41.0 - 53.0 % [facility] Hemoglobin (Bld) [Mass/Vol] 14.9 g/dL 13.5 - 17.5 g/dL [facility] Immature granulocytes (Bld) [#/Vol] 0.01 10*3/uL [facility] Immature granulocytes/100 WBC (Bld) 0 % 0 - 5 % [facility] Lymphocytes/100 WBC (Bld) 32 % 13 - 44 % [facility] Lymphocytes/100 WBC (Bld) 2.31 % [facility] MCH (RBC) [Entitic mass] 29.8 pg 26.0 - 34.0 pg [facility] MCHC (RBC) [Mass/Vol] 33.7 g/dL 31.0 - 37.0 g/dL [facility] MCV (RBC) [Entitic vol] 88.4 fL 80.0 - 100.0 fL [facility] Monocytes/100 WBC (Bld) 9 % 5 - 9 % [facility] Monocytes/100 WBC (Bld) 0.67 % [facility] Neutrophils/100 WBC (Bld) 56 % 39 - 75 % [facility] Platelet mean volume (Bld) [Entitic vol] 9.7 fL 6.0 - 12.0 fL [facility] Platelets (Bld) [#/Vol] 379 10*3/uL [facility] RBC (Bld) [#/Vol] 5 10*6/uL 4.50 - 5.9 0 m/uL [facility] Segmented neutrophils/100 WBC (Bld) 3.97 % [facility] WBC other (Bld) [#/Vol] 7.2 [facility] CBC with Diffon 12-21-2024 Abs. Basophil 0.05 k/uL Normal 0.00-0.20 [facility] Comment on above: Performed By: #### L IPR, FT4 #### [facility] [address] [place] [id number] Coal Getter: Luis Carlos Reece MD #### TSH, MG, CP, CDP #### [facility] [address] [place] [address] Coal Getter: Ari Washburn MD Abs.Imm.Granulocyte 0.01 k/uL Normal 0.00-0.30 [facility] Comment on above: Performed By: #### L IPR, FT4 #### [address] [id number] Coal Getter: Luis Carlos Reece MD #### TSH, MG, CP, CDP #### [facility] [address] [place] [id number] Coal Getter: Ari Washburn MD Abs.Neutrophil (Seg) 3.97 k/uL Normal 2.1-6.5 [facility] Comment on above: Performed By: #### L IPR, FT4 #### [place] [id number] Coal Getter: Luis Carlos Reece MD #### TSH, MG, CP, CDP #### [facility] [address] [place] [id number] Coal Getter: Ari Washburn MD Basophils/100 WBC (Bld) 1 % Normal 0-2 [facility] Comment on above: Performed By: #### L IPR, FT4 #### [place] [id number] Coal Getter: Luis Carlos Reece MD #### TSH, MG, CP, CDP #### [facility] [address] [place] [id number] Coal Getter: Ari Washburn MD Eosinophils (Bld) [#/Vol] 0.14 10*3/uL Normal 0.00-0.40 [facility] Comment on above: Performed By: #### L IPR, FT4 #### [place] [id number] Coal Getter: Luis Carlos Reece MD #### TSH, MG, CP, CDP #### [facility] [address] [place] [address] Coal Getter: Ari Washburn MD Eosinophils/100 WBC (Bld) 2 % Normal 0-5 [facility] Comment on above: Performed By: #### L IPR, FT4 #### [address] [id number] Coal Getter: Luis Carlos Reece MD #### TSH, MG, CP, CDP #### [facility] [address] [place] [address] Coal Getter: Ari Washburn MD Erythrocyte distribution width (RBC) [Ratio] 12.4 % Normal 12.1-15.2 [facility] Comment on above: Performed By: #### L IPR, FT4 #### [address] [id number] Coal Getter: Luis Carlos Reece MD #### TSH, MG, CP, CDP #### [facility] [address] [place] [address] Coal Getter: Ari Washburn MD Hematocrit (Bld) [Volume fraction] 44.2 % Normal 41.0-53.0 [facility] Comment on above: Performed By: #### L IPR, FT4 #### [address] [id number] Coal Getter: Luis Carlos Reece MD #### TSH, MG, CP, CDP #### [facility] [address] [place] [address] Coal Getter: Ari Washburn MD Hemoglobin (Bld) [Mass/Vol] 14.9 g/dL Normal 13.5-17.5 [facility] Comment on above: Performed By: #### L IPR, FT4 #### [address] [id number] Coal Getter: Luis Carlos Reece MD #### TSH, MG, CP, CDP #### [facility] [address] [place] [address] Coal Getter: Ari Washburn MD Immature granulocytes/100 WBC (Bld) 0 % Normal 0-5 [facility] Comment on above: Performed By: #### L IPR, FT4 #### [address] [id number] Coal Getter: Luis Carlos Reece MD #### TSH, MG, CP, CDP #### [facility] [address] [place] [address] Coal Getter: Ari Washburn MD Lymphocytes (Bld) [#/Vol] 2.31 10*3/uL Normal 1.00-4.80 [facility] Comment on above: Performed By: #### L IPR, FT4 #### [address] [id number] Coal Getter: Luis Carlos Reece MD #### TSH, MG, CP, CDP #### [facility] [address] [place] [id number] Coal Getter: Ari Washburn MD Lymphocytes/100 WBC (Bld) 32 % Normal 13-44 [facility] Comment on above: Performed By: #### L IPR, FT4 #### [address] [id number] Coal Getter: Luis Carlos Reece MD #### TSH, MG, CP, CDP #### [facility] [address] [place] [address] Coal Getter: Ari Washburn MD MCH (RBC) [Entitic mass] 29.8 pg Normal 26.0-34.0 [facility] Comment on above: Performed By: #### L IPR, FT4 #### [address] [id number] Coal Getter: Luis Carlos Reece MD #### TSH, MG, CP, CDP #### [facility] [address] [place], [place] [phone] Coal Getter: Ari Washburn MD MCHC (RBC) [Mass/Vol] 33.7 g/dL Normal 31.0-37.0 [facility] Comment on above: Performed By: #### L IPR, FT4 #### [address] [id number] Coal Getter: Luis Carlos Reece MD #### TSH, MG, CP, CDP #### [facility] [address] [place] [id number] Coal Getter: Ari Washburn MD MCV (RBC) [Entitic vol] 88.4 fL Normal 80.0-100.0 [facility] Comment on above: Performed By: #### L IPR, FT4 #### [address] [id number] Coal Getter: Luis Carlos Reece MD #### TSH, MG, CP, CDP #### [facility] [address] [place], [place] [id number] Coal Getter: Ari Washburn MD Monocytes (Bld) [#/Vol] 0.67 10*3/uL Normal 0.00-1.00 [facility] Comment on above: Performed By: #### L IPR, FT4 #### [address] [id number] Coal Getter: Luis Carlos Reece MD #### TSH, MG, CP, CDP #### [facility] [address] [place], [place] [id number] Coal Getter: Ari Washburn MD Monocytes/100 WBC (Bld) 9 % Normal 5-9 [facility] Comment on above: Performed By: #### L IPR, FT4 #### [facility] [address] [place] [address] Coal Getter: Luis Carlos Reece MD #### TSH, MG, CP, CDP #### [facility] [address] [place], [place] [id number] Coal Getter: Ari Washburn MD Neutrophil (Seg) 56 % Normal 39-75 [facility] Comment on above: Performed By: #### L IPR, FT4 #### [address] [address] Coal Getter: Luis Carlos Reece MD #### TSH, MG, CP, CDP #### [facility] [address] [place], [place] [id number] Coal Getter: Ari Washburn MD Platelet mean volume (Bld) [Entitic vol] 9.7 fL Normal 6.0-12.0 [facility] Comment on above: Performed By: #### L IPR, FT4 #### [address] [address] Coal Getter: Luis Carlos Reece MD #### TSH, MG, CP, CDP #### [facility] [address] [place], [place] [phone] Coal Getter: Ari Washburn MD Platelets (Bld) [#/Vol] 379 10*3/uL Normal 140-450 [facility] Comment on above: Performed By: #### L IPR, FT4 #### [address] [address] Coal Getter: Luis Carlos Reece MD #### TSH, MG, CP, CDP #### [facility] [address] [place], [place] [phone] Coal Getter: Ari Washburn MD RBC (Bld) [#/Vol] 5.00 10*6/uL Normal 4.50-5.90 [facility] Comment on above: Performed By: #### L IPR, FT4 #### [facility] [place], [place] [id number] Coal Getter: Luis Carlos Reece MD #### TSH, MG, CP, CDP #### [facility] [address] [place], [place] [id number] Coal Getter: Ari Washburn MD WBC (Bld) [#/Vol] 7.2 10*3/uL Normal 3.5-11.0 [facility] Comment on above: Performed By: #### L IPR, FT4 #### [address] [id number] Coal Getter: Luis Carlos Reece MD #### TSH, MG, CP, CDP #### [facility] [address] [place], [place] [phone] Coal Getter: Ari Washburn MD Comp Metabolic Profon 2024 Albumin [Mass/Vol] 4.7 g/dL Normal 3.5-5.2 [facility] Comment on above: Performed By: #### L IPR, FT4 #### [address] [id number] Coal Getter: Luis Carlos Reece MD #### TSH, MG, CP, CDP #### [facility] [address] [place], [place] [id number] Coal Getter: Ari Washburn MD Albumin/Glob Ratio 1.6 Normal 1.0-2.5 [facility] Comment on above: Performed By: #### L IPR, FT4 #### [address] [address] Coal Getter: Luis Carlos Reece MD #### TSH, MG, CP, CDP #### [facility] [address] [place], [place] [id number] Coal Getter: Ari Washburn MD Alkaline Phos 44 U/L Normal 40-129 [facility] Comment on above: Performed By: #### L IPR, FT4 #### [facility] [address] [place] [address] Coal Getter: Luis Carlos Reece MD #### TSH, MG, CP, CDP #### [facility] [address] [place], [place] [phone] Coal Getter: Ari Washburn MD ALT [Catalytic activity/Vol] 31 U/L Normal 5-41 [facility] Comment on above: Performed By: #### L IPR, FT4 #### [facility] [address] [place], [place] [id number] Coal Getter: Luis Carlos Reece MD #### TSH, MG, CP, CDP #### [facility] [address] [place], [place] [id number] Coal Getter: Ari Washburn MD Anion gap [Moles/Vol] 8 mmol/L Low 9-17 [facility] Comment on above: Performed By: #### L IPR, FT4 #### [facility] [address] [place] [address] Coal Getter: Luis Carlos Reece MD #### TSH, MG, CP, CDP #### [facility] [address] [place], [place] [id number] Coal Getter: Ari Washburn MD AST [Catalytic activity/Vol] 29 U/L Normal <40 [facility] Comment on above: Performed By: #### L IPR, FT4 #### [facility] [address] [place] [address] Coal Getter: Luis Carlos Reece MD #### TSH, MG, CP, CDP #### [facility] [address] [place], [place] [id number] Coal Getter: Ari Washburn MD Bilirubin [Mass/Vol] 0.6 mg/dL Normal 0.3-1.2 [facility] Comment on above: Performed By: #### L IPR, FT4 #### [facility] [address] [place], [place] [id number] Coal Getter: Luis Carlos Reece MD #### TSH, MG, CP, CDP #### [facility] [address] [place], [place] [id number] Coal Getter: Ari Washburn MD Calcium [Mass/Vol] 9.4 mg/dL Normal 8.6-10.4 [facility] Comment on above: Performed By: #### L IPR, FT4 #### [facility] [address] [place], [place] [id number] Coal Getter: Luis Carlos Reece MD #### TSH, MG, CP, CDP #### [facility] [address] [place], [place] [id number] Coal Getter: Ari Washburn MD Chloride [Moles/Vol] 107 mmol/L Normal 98-107 [facility] Comment on above: Performed By: #### L IPR, FT4 #### [facility] [address] [place], [place] [phone] Coal Getter: Luis Carlos Reece MD #### TSH, MG, CP, CDP #### [facility] [address] [place], [place] [phone] Coal Getter: Ari Washburn MD CO2 [Moles/Vol] 25 mmol/L Normal 20-31 [facility] Comment on above: Performed By: #### L IPR, FT4 #### [facility] [address] [place], [place] [id number] Coal Getter: Luis Carlos Reece MD #### TSH, MG, CP, CDP #### [facility] [address] [place], [place] [phone] Coal Getter: Ari Washburn MD Creatinine [Mass/Vol] 0.9 mg/dL Normal 0.7-1.2 [facility] Comment on above: Performed By: #### L IPR, FT4 #### [address] [id number] Coal Getter: Luis Carlos Reece MD #### TSH, MG, CP, CDP #### [facility] [address] [place], [place] [id number] Coal Getter: Ari Washburn MD GFR/1.73 sq M.predicted among non-blacks MDRD (S/P/Bld) [Vol rate/Area] mL/min/{1.73_m2} Normal >60 [facility] Comment on above: Result Comment: These results [...] affects renal tubular secretion. Performed By: #### L IPR, FT4 #### [address] [id number] Coal Getter: Luis Carlos Reece MD #### TSH, MG, CP, CDP #### [facility] [address] [place], [place] [id number] Coal Getter: Ari Washburn MD Glucose [Mass/Vol] 98 mg/dL Normal 70-99 [facility] Comment on above: Performed By: #### L IPR, FT4 #### [address] [address] Coal Getter: Luis Carlos Reece MD #### TSH, MG, CP, CDP #### [facility] [address] [place], [place] [phone] Coal Getter: Ari Washburn MD Potassium [Moles/Vol] 4.6 mmol/L Normal 3.7-5.3 [facility] Comment on above: Performed By: #### L IPR, FT4 #### [place] [address] [place] [address] Coal Getter: Luis Carlos Reece MD #### TSH, MG, CP, CDP #### [facility] [address] [place], [place] [phone] Coal Getter: Ari Washburn MD Protein [Mass/Vol] 7.6 g/dL Normal 6.4-8.3 [facility] Comment on above: Performed By: #### L IPR, FT4 #### [address] [id number] Coal Getter: Luis Carlos Reece MD #### TSH, MG, CP, CDP #### [facility] [address] [place], [place] [phone] Coal Getter: Ari Washburn MD Sodium [Moles/Vol] 140 mmol/L Normal 135-144 [facility] Comment on above: Performed By: #### L IPR, FT4 #### [address] [phone] Coal Getter: Luis Carlos Reece MD #### TSH, MG, CP, CDP #### [facility] [address] [place], [place] [phone] Coal Getter: Ari Washburn MD Urea nitrogen [Mass/Vol] 10 mg/dL Normal 6-20 [facility] Comment on above: Performed By: #### L IPR, FT4 #### [address] [id number] Coal Getter: Luis Carlos Reece MD #### TSH, MG, CP, CDP #### [facility] [address] [place], [place] [phone] Coal Getter: Ari Washburn MD Comprehensive Metabolic [facility] 12-21-2024 Albumin [Mass/Vol] 4.7 g/dL 3.5 - 5.2 g/dL [facility] Albumin/Globulin [Mass ratio] 1.6 {ratio} 1.0 - 2.5 [facility] [facility] ALP [Catalytic activity/Vol] 44 U/L 40 - 129 U/L [facility] ALT [Catalytic activity/Vol] 31 U/L 5 - 41 U/L [facility] Anion gap [Moles/Vol] 8 mmol/L Low 9 - 17 mmol/L [facility] AST [Catalytic activity/Vol] 29 U/L NINF - 40 U/L [facility] Bilirubin [Mass/Vol] 0.6 mg/dL 0.3 - 1.2 mg/dL [facility] Calcium [Mass/Vol] 9.4 mg/dL 8.6 - 10. 4 mg/dL [facility] Chloride [Moles/Vol] 107 mmol/L 98 - 107 mmol/L [facility] CO2 [Moles/Vol] 25 mmol/L 20 - 31 mmol/L [facility] Creatinine [Mass/Vol] 0.9 mg/dL 0.7 - 1.2 mg/dL [facility] Est, Glom Filt Rate - PINF [facility] Comment on above: These results are not [...] [Mass/Vol] 98 mg/dL 70 - 99 mg/dL [facility] Interpretation and review of laboratory results Abnormal [facility] Potassium [Moles/Vol] 4.6 mmol/L 3.7 - 5.3 mmol/L [facility] Protein [Mass/Vol] 7.6 g/dL 6.4 - 8.3 g/dL [facility] Sodium [Moles/Vol] 140 mmol/L 135 - 144 mmol/L [facility] Urea nitrogen [Mass/Vol] 10 mg/dL 6 - 20 mg/dL [facility] Lipid Panelon 12-21-2024 Cholesterol [Mass/Vol] 195 mg/dL 0 - 199 mg/dL [facility] Comment on above: Cholesterol Guidelines: <200 Desirable 200-240 Borderline >240 Undesirable Cholesterol in HDL [Mass/Vol] 43 mg/dL 40 - PINF mg/dL [facility] Comment on above: HDL Guidelines: <40 Undesirable 40-59 Borderline >59 Desirable Cholesterol in LDL [Mass/Vol] 122 mg/dL High 0 - 100 mg/dL [facility] Comment on above: LDL Guidelines: <100 Desirable 100-129 Near to/above Desirable 130-159 Borderline >159 Undesirable Direct (measured) LDL and calculated LDL are not interchangeable tests. Cholesterol in VLDL [Mass/Vol] 30 mg/dL 1 - 30 mg/dL [facility] Cholesterol.total/C holesterol in HDL [Mass ratio] 4.5 {ratio} NINF - 5.0 [facility] Interpretation and review of laboratory results Abnormal [facility] Triglyceride [Mass/Vol] 148 mg/dL NINF - 150 mg/dL [facility] Comment on above: Triglyceride Guidelines: <150 Desirable 150-199 Borderline 200-499 High >499 Very high Based on AHA Guidelines for fasting triglyceride, March 2012. Lipid Profileon 12-21-2024 Cholesterol [Mass/Vol] 195 mg/dL Normal 0-199 [facility] Comment on above: Result Comment: Cholesterol Guidelines: <200 Desirable 200-240 Borderline >240 Undesirable Performed By: #### L IPR, FT4 #### [facility] [email or web address] [address] [place], [place] [id number] Coal Getter: Luis Carlos Reece MD #### TSH, MG, CP, CDP #### [facility] [address] [place] [address] Coal Getter: Ari Washburn MD Cholesterol in HDL [Mass/Vol] 43 mg/dL Normal >40 [facility] Comment on above: Result Comment: HDL Guidelines: <40 Undesirable 40-59 Borderline >59 Desirable Performed By: #### L IPR, FT4 #### [facility] [email or web address] [facility] [place], [place] [id number] Coal Getter: Luis Carlos Reece MD #### TSH, MG, CP, CDP #### [facility] [address] [place], [place] [id number] Coal Getter: Ari Washburn MD Cholesterol in LDL [Mass/Vol] 122 mg/dL High 0-100 [facility] Comment on above: Result Comment: LDL Guidelines: <100 Desirable 100-129 Near to/above Desirable 130-159 Borderline >159 Undesirable Direct (measured) LDL and calculated LDL are not interchangeable tests. Performed By: #### L IPR, FT4 #### [facility] [email or web address] [facility] [place] [address] Coal Getter: Luis Carlos Reece MD #### TSH, MG, CP, CDP #### [facility] [address] [place], [place] [address] Coal Getter: Ari Washburn MD Cholesterol in VLDL [Mass/Vol] 30 mg/dL Normal 1-30 [facility] Comment on above: Performed By: #### L IPR, FT4 #### [facility] [email or web address] [facility] [place] [address] Coal Getter: Luis Carlos Reece MD #### TSH, MG, CP, CDP #### [facility] [address] [place], [place] [phone] Coal Getter: Ari Washburn MD Cholesterol.total/C holesterol in HDL [Mass ratio] 4.5 {ratio} Normal <5.0 [facility] Comment on above: Performed By: #### L IPR, FT4 #### [facility] [email or web address] [facility] [place] [address] Coal Getter: Luis Carlos Reece MD #### TSH, MG, CP, CDP #### [facility] [address] [place], [place] [id number] Coal Getter: Ari Washburn MD Triglyceride [Mass/Vol] 148 mg/dL Normal <150 [facility] Comment on above: Result Comment: Triglyceride Guidelines: <150 Desirable 150-199 Borderline 200-499 High >499 Very high Based on AHA Guidelines for fasting triglyceride, March 2012. Performed By: #### L IPR, FT4 #### [facility] [email or web address] [address] [place], [place] [id number] Coal Getter: Luis Carlos Reece MD #### TSH, MG, CP, CDP #### [facility] [address] [place], [place] [id number] Coal Getter: Ari Washburn MD Magnesiumon 12-21-2024 Magnesium [Mass/Vol] 2.2 mg/dL 1.6 - 2.6 mg/dL [facility] Magnesium [Mass/Vol] 2.2 mg/dL Normal 1.6-2.6 [facility] Comment on above: Performed By: #### L IPR, FT4 #### [address] [id number] Coal Getter: Luis Carlos Reece MD #### TSH, MG, CP, CDP #### [facility] [address] [place] [address] Coal Getter: Ari Washburn MD No Panel Informationon 12-21 [facility] T4, Freeon 12-21-2024 Free T4 [Mass/Vol] 1.1 ng/dL 0.9 - 1.7 ng/dL [facility] TSHon 12-21-2024 TSH Qn 1.1 m[IU]/L [facility] Thyroid Stim. Horm.on 2024 Thyroid Stim. Horm. 1.10 uIU/mL Normal 0.27-4.20 [facility] Comment on above: Performed By: #### L IPR, FT4 #### [address] [id number] Coal Getter: Luis Carlos Reece MD #### TSH, MG, CP, CDP #### [facility] [address] [place] [address] Coal Getter: Ari Washburn MD Thyroxine, Freeon 12-21-2024 Thyroxine, Free 1.1 ng/dL Normal 0.9-1.7 [facility] Comment on above: Performed By: #### L IPR, FT4 #### [facility] [email or web address] [address] [place] [address] Coal Getter: Luis Carlos Reece MD #### TSH, MG, CP, CDP #### [facility] [address] [place] [address] Coal Getter: MD Jewels Denny 03-10-2024 CNPN Telephone (OPHTMN) ALBERTO GERMAIN ([id number]) 1990 M Date Time Provider Department 03/10/24 CAMILLA CAMACHO [facility] During your visit today, we recorded the following information about you: Carly Verdugo 03/10/2024 2:53 PM Signed Alberto Germain [id number] (home) Dr. 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 This was given to you in the manilla folder last week and also scanned in pt chart. You can call the pt back or Dr. Tran on her cell at [phone]. LV 10/06/23 No FV scheduled Assessment AND Plan Camilla Camacho MD filed at 10/06/2023 4:02 PM Status: Signed New patient referred by Lola Galo PA-C. Previously was receiving care in [place], [place]. 1. 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 https://www.frontiers in.org/journals/medic ine/articles/10.3389/ fmed.2024.578169- 2/full Carly Verdugo 03/13/2024 1:35 PM Signed Called pt back he wants to know if there is any corticosteroid operation that can be done? I am familiar with this article as well as other case reports along the same lines. [facility] has no known treatment even when not related to COVID. Steroids have been tried with limited success. PK Carly Verdugo 03/14/2024 9:10 AM Signed Called and left VM for pt to [...] by: Zack (more content not included)... Normal [facility] FUNDUS PHOTOS OU (BOTH EYES) on 10-06-2023 [facility] Radiology Study observation (narrative) [facility] OCT ANGIOGRAPHY OU (BOTH EYE S)on 10-06-2023 [facility] Radiology Study observation (narrative) [facility] OCT MACULA CIRRUS OU (BOTH E YES)on 10-06-2023 [facility] Radiology Study observation (narrative) [facility] OCT OPTIC NERVE CIRRUS OU (B OTH EYES)on 10-06-2023 [facility] ic Radiology Study observation (narrative) [facility] Hemoglobin A1Con 08-12-2023 Average glucose Estimated from glycated hemoglobin (Bld) [Mass/Vol] 85 mg/dL [facility] [employer] Comment on above: The ADA and AACC rec ommend providing the estimated average glucose result to permit better patient understanding of their HBA1c result. HbA1c (Bld) [Mass fraction] 4.6 % 4.0 - 6.0 % [facility] Create [facility] Create CT head/brain wo conon 06-05 CT head/brain wo con [facility] Main [place] [address] [place] [address] CT Scan Report Signed Patient: Alberto Germain MR#: [id number] 51 : 1990 Acct:[id number] Age/Sex: 32 / M ADM Date: 06/05/23 Loc: ER Room: Type: [facility] ER Attending Dr: Copies to: Konstantin Khan [...] Kwadwo Mi M.D.06/05/2023 5:40 PM Dictation Location: [place] [address] Transcribed By: TYRELL 06/05/23 2042 Dictated By: Kwadwo Mi DO 06/05/23 173 Signed By: 06/05/23 174 [facility] ECG 12 lead ECGon 06-05-2023 ECG 12 lead ECG [facility] Main [address] [address] Electrocardiograph Report Signed Patient: Alberto Germain MR#: [id number] 51 : 1990 Acct:[id number] Age/Sex: 32 / M ADM Date: 06/05/23 Loc: ER Room: Type: [facility] ER Attending Dr: Ordering Provider: Konstantin Khan [...] By: MUS Signed By Konstantin Khan DO [address] [facility] Basic Metabolic Panel w/ Ref landon to MGon 10-13-2022 Anion gap [Moles/Vol] 11 mmol/L 9 - 17 mmol/L [employer] [facility] Calcium [Mass/Vol] 9.6 mg/dL 8.6 - 10. 4 mg/dL [employer] [facility] Chloride [Moles/Vol] 101 mmol/L 98 - 107 mmol/L [employer] [facility] CO2 [Moles/Vol] 25 mmol/L 20 - 31 mmol/L [employer] Creatinine [Mass/Vol] 0.91 mg/dL 0.70 - 1.20 mg/dL [employer] [facility] GFR/1.73 sq M.predicted MDRD (S/P/Bld) [Vol rate/Area] - PINF [facility] Comment on above: These results are not [...] [Mass/Vol] 98 mg/dL 70 - 99 mg/dL [facility] Potassium [Moles/Vol] 4.0 mmol/L 3.7 - 5.3 mmol/L [facility] Sodium [Moles/Vol] 137 mmol/L 135 - 144 mmol/L [facility] Urea nitrogen [Mass/Vol] 11 mg/dL 6 - 20 mg/dL [facility] Urea nitrogen/Creatinine (Bld) [Mass ratio] 12 9 - 20 [facility] CBC with Auto Differentialon 10-13-2022 Absolute Eos # 0.50 High [facility] Absolute Lymph # 3.70 [facility] Absolute [place] # 0.90 [facility] Basophils (Bld) [#/Vol] 0.10 10*3/uL [facility] Basophils/100 WBC (Bld) 2 % 0 - 2 % [facility] Differential Type YES [facility] Eosinophils/100 WBC (Bld) 5 % 0 - 5 % [facility] Hematocrit (Bld) [Volume fraction] 42.0 % 41 - 53 % [facility] Hemoglobin (Bld) [Mass/Vol] 14.6 g/dL 13.5 - 17.5 g/dL [facility] Interpretation and review of laboratory results Abnormal [facility] Lymphocytes/100 WBC (Bld) 39 % 13 - 44 % [facility] MCH (RBC) [Entitic mass] 31.2 pg 26 - 34 pg [facility] MCHC (RBC) [Mass/Vol] 34.7 g/dL 31 - 37 g/dL [facility] MCV (RBC) [Entitic vol] 89.7 fL 80 - 100 fL [facility] Monocytes/100 WBC (Bld) 9 % 5 - 9 % [facility] Platelet distribution width (Bld) [Ratio] 13.0 % 12.1 - 15.2 % [facility] Platelets (Bld) [#/Vol] 340 10*3/uL [facility] RBC (Bld) [#/Vol] 4.68 10*6/uL 4.5 - 5.9 m/uL [facility] Segmented neutrophils/100 WBC (Bld) 45 % 39 - 75 % [facility] Segs Absolute 4.30 [facility] WBC (Bld) [#/Vol] 9.4 10*3/uL [facility] D-Dimer, Quantitativeon 05- Fibrin D-dimer FEU IA (Bld) [Mass/Vol] 0.30 ug/mL [facility] Comment on above: When combined with a [...] more prevalent in patients with distal DVT. [facility] Troponinon 10-13-2022 Troponin I.cardiac DL <= 0.01 ng/mL [Mass/Vol] ng/L 0 - 22 ng/L [facility] Comment on above: High Sensitivity Tro ponin values cannot be compared with other Troponin methodologies. [employer] [facility] XR LUMBAR SPINE (MIN 4 VIEWS )on 01-16-2022 Decreased lumbar lordosis, but otherwise normal lumbar spine series. [facility] EXAM: XR LUMBAR SPIN E (MIN 4 VIEWS) HISTORY: Reason for exam:->Chronic low back pain -year-old male COMPARISON: None. TECHNIQUE: 5 views lumbar spine FINDINGS: No pars defects or spondylolisthesis. The lumbar lordosis is somewhat shallow. No spondylolisthesis or degenerative change. SI joints normal. [facility] Darrel Johnston Jr., MD - 01/16/2022 EXAM: XR LUMBAR SPINE (MIN 4 VIEWS) HISTORY: Reason for exam:->Chronic low back pain -year-old male COMPARISON: None. TECHNIQUE: 5 views lumbar spine FINDINGS: No pars defects or spondylolisthesis. The lumbar lordosis is somewhat shallow. No spondylolisthesis or degenerative change. SI joints normal. IMPRESSION: Decreased lumbar lordosis, but otherwise normal lumbar spine series. [employer] [facility] Work Phone: Radiology Study observation (narrative) [employer] Work Phone: XR LUMBAR SPINE (MIN 4 VIEWS )Ordered By: Darrel Johnston on 01-16-2022 [facility] Work Phone: CBC AUTO DIFFon 03-02-2019 Basophils (Bld) [#/Vol] 0.1 103/ul Normal 0.0-0.1 [facility] Comment on above: Performed By: #### C BC #### [facility] [address] [place], [place] [address] [employer] Basophils/100 WBC (Bld) 0.8 % Normal 0.2-2.0 [facility] Comment on above: Performed By: #### C BC #### [facility] [address] [place], [place] [address] [employer] Eosinophils (Bld) [#/Vol] 0.2 103/ul Normal 0.0-0.7 [facility] Comment on above: Performed By: #### C BC #### [facility] [address] [place] [id number] [employer] Eosinophils/100 WBC (Bld) 2.6 % Normal 0.9-7.0 [facility] Comment on above: Performed By: #### C BC #### [facility] [address] [place], [place] [address] [employer] Erythrocyte distribution width (RBC) [Ratio] 12.2 % Normal 11.0-15.0 [facility] Comment on above: Performed By: #### C BC #### [facility] [address] [place], [place] [address] [employer] Hematocrit (Bld) [Volume fraction] 44.2 % Normal 42.0-54.0 [facility] Comment on above: Performed By: #### C BC #### [facility] [address] [place], [place] [address] [employer] Hemoglobin (Bld) [Mass/Vol] 15.1 g/dL Normal 14.0-18.0 [facility] Comment on above: Performed By: #### C BC #### [facility] [address] [place], [place] [address] [employer] IG # 0.03 10e3/ul Normal 0.00-0.03 [facility] Comment on above: Performed By: #### C BC #### [facility] [address] [place], [place] [address] [employer] IG % 0.3 % Normal 0.0-0.5 [facility] Comment on above: Performed By: #### C BC #### [facility] [address] [place], [place] [address] [employer] Lymphocytes (Bld) [#/Vol] 3.2 103/ul Normal 1.2-3.8 [facility] Comment on above: Performed By: #### C BC #### [facility] [address] [place], [place] [address] [employer] Lymphocytes/100 WBC (Bld) 35.1 % Normal 20.5-60.0 [facility] Comment on above: Performed By: #### C BC #### [facility] [address] [place], [place] [address] [employer] MANUAL DIFF REQ NO Normal [facility] Comment on above: Performed By: #### C BC #### [facility] [address] [place], [place] [address] [employer] MCH (RBC) [Entitic mass] 30.4 pg Normal 25.9-34.0 [facility] Comment on above: Performed By: #### C BC #### [facility] [address] [place], [place] [address] [employer] MCHC (RBC) [Mass/Vol] 34.2 g/dL Normal 29.9-35.2 [facility] Comment on above: Performed By: #### C BC #### [facility] [address] [place] [address] [employer] MCV (RBC) [Entitic vol] 89.1 fL Normal 80.0-94.0 [facility] Comment on above: Performed By: #### C BC #### [facility] [address] [place] [address] [employer] Monocytes (Bld) [#/Vol] 0.8 103/ul Normal 0.3-0.8 [facility] Comment on above: Performed By: #### C BC #### [facility] [address] [place] [address] [employer] Monocytes/100 WBC (Bld) 9.3 % Normal 1.7-12.0 [facility] Comment on above: Performed By: #### C BC #### [facility] [address] [place] [address] [employer] Neutrophils (Bld) [#/Vol] 4.7 103/ul Normal 1.4-6.5 [facility] Comment on above: Performed By: #### C BC #### [facility] [address] [place], [place] [address] [employer] Neutrophils/100 WBC (Bld) 51.9 % Normal 43.0-75.0 [facility] Comment on above: Performed By: #### C BC #### [facility] [address] [place], [place] [address] [employer] Platelet mean volume (Bld) [Entitic vol] 10.7 fL Normal 9.5-13.5 [facility] Comment on above: Performed By: #### C BC #### [facility] [address] [place], [place] [address] [employer] Platelets (Bld) [#/Vol] 365 103/ul Normal 150-450 [facility] Comment on above: Performed By: #### C BC #### [facility] [address] [place], [place] [address] [employer] RBC (Bld) [#/Vol] 4.96 106/ul Normal 4.70-6.10 [facility] Comment on above: Performed By: #### C BC #### [facility] [address] [place], [place] [address] [employer] WBC (Bld) [#/Vol] 9.1 103/ul Normal 4.0-11.0 [facility] Comment on above: Performed By: #### C BC #### [facility] [address] [place], [place] [address] ABD/PELVIS WO CONon 03-02 CT ABD/PELVIS WO CON Patient: ALBERTO GERMAIN Exam Date: 03/02/2019 : 1990 Gender:M Ordering : DR IZA ZENG DCarissa Admission #: [id number] Family : DR DALJIT PEDRO D.O. Order #: [id number] CLICK HERE TO VIEW EXAM RADIOLOGY REPORT [...] M.D. on 03/02/2019 at 14:59 Normal [facility] ER URINE PROFILEon 9 Bilirubin [Mass/Vol] Negative Normal NEGATIVE [facility] Comment on above: Performed By: #### GALEN RANGEL #### [facility] [address] [place] [address] [employer] BLOOD LARGE Normal NEGATIVE [facility] Comment on above: Performed By: #### GALEN RANGEL #### [facility] [address] [place] [address] [employer] Clarity (U) CLEAR Normal [facility] Comment on above: Performed By: #### GALEN RANGEL #### [facility] [address] [place] [address] [employer] Color (U) YELLOW Normal YELLOW [facility] Comment on above: Performed By: #### GALEN RANGEL #### [facility] [address] [place] [address] [employer] ERUAHD A micrscopic examination will be performed if indicated. Normal [facility] Comment on above: Performed By: #### GALEN RANGEL #### [facility] [address] [place] [address] [employer] Glucose [Mass/Vol] Negative Normal NEGATIVE [facility] Comment on above: Performed By: #### GALEN RANGEL #### [facility] [address] [place] [address] [employer] Ketones Ql (U) Negative Normal NEGATIVE [facility] Comment on above: Performed By: #### Magui CARROLL UMTREVORRO #### [facility] [address] [place], [place] [id number] [employer] Nitrite Ql (U) Negative Normal NEGATIVE [facility] Comment on above: Performed By: #### Magui CARROLL UMICRO #### [facility] [address] [place], [place] [address] [employer] pH (Bld) 8.0 Normal 5-9 [facility] Comment on above: Performed By: #### Magui CARROLL UMICRO #### [facility] [address] [place], [place] [address] [employer] Protein (U) [Mass/Vol] 100 mg/dL Normal [facility] Comment on above: Performed By: #### Magui CARROLL UMICRO #### [facility] [address] [place], [place] [address] [employer] SPEC GRAVITY 1.020 Normal 1.005-<=1.025 [facility] Comment on above: Performed By: #### Magui CARROLL UMICRO #### [facility] [address] [place], [place] [address] [employer] UR MICRO IND INDICATED Normal [facility] Comment on above: Performed By: #### Magui CARROLL UMICRO #### [facility] [address] [place], [place] [address] [employer] Urobilinogen Qn (U) 1.0 EU/dl Normal [facility] Comment on above: Performed By: #### Magui CARROLL UMICRO #### [facility] [address] [place], [place] [address] [employer] WBC (Bld) [#/Vol] TRACE Normal NEGATIVE [facility] Comment on above: Performed By: #### Magui CARROLL UMICRO #### [facility] [address] [place], [place] [address] [employer] LIPASEon 03-02-2019 Lipase [Catalytic activity/Vol] 134.0 U/L Normal 23.0-300.0 [facility] Comment on above: Performed By: #### L IPA, BMP #### [facility] [address] [place] [address] [employer] Paradaen PROF CHEM 8 (BAS METB)on Anion gap [Moles/Vol] 15.0 mmol/L Normal [facility] Comment on above: Performed By: #### L IPA, BMP #### [facility] [address] [place] [address] [employer] Calcium [Mass/Vol] 9.5 mg/dL Normal 8.4-10.2 [facility] Comment on above: Performed By: #### L IPA, BMP #### [facility] [address] [place] [address] [employer] Chloride [Moles/Vol] 103 mmol/L Normal 98-107 [facility] Comment on above: Performed By: #### L IPA, BMP #### [facility] [address] [place] [address] [employer] CO2 [Moles/Vol] 23.7 mmol/L Normal 22.0-30.0 [facility] Comment on above: Performed By: #### L IPA, BMP #### [facility] [address] [place] [address] [employer] Creatinine [Mass/Vol] 1.10 mg/dL Normal 0.66-1.25 [facility] Comment on above: Performed By: #### L IPA, BMP #### [facility] [address] [place], [place] [id number] Flex Sis EGFR-AF MOZAMBICAN >60 Normal >=60 [facility] Comment on above: Performed By: #### L IPA, BMP #### [facility] [address] [place], [place] [id number] Flex Sis EGFR-NON AF MOZAMBICAN >60 Normal >=60 [facility] Comment on above: Performed By: #### L IPA, BMP #### [facility] [address] [place] [address] Flex Sis Glucose [Mass/Vol] 118 mg/dL Critically high 74-106 [facility] Comment on above: Performed By: #### L IPA, BMP #### [facility] [address] [id number] Flex Sis Potassium [Moles/Vol] 3.7 mmol/L Normal 3.4-5.0 [facility] Comment on above: Performed By: #### L IPA, BMP #### [facility] [address] [id number] Flex Sis Sodium [Moles/Vol] 138 mmol/L Normal 137-145 [facility] Comment on above: Performed By: #### L IPA, BMP #### [facility] [address] [place], [place] [id number] Flex Sis Urea nitrogen [Mass/Vol] 9.0 mg/dL Normal 9.0-20.0 [facility] Comment on above: Performed By: #### L IPA, BMP #### [facility] [address] [place], [place] [id number] Flex Sis Urea nitrogen/Creatinine [Mass ratio] 8.2 mg/mg Normal [facility] Comment on above: Performed By: #### L IPA, BMP #### [facility] [address] [place], [place] [id number] Flex Sis URINE MICROSCOPIC ONLYon Bacteria LM.HPF (Urine sed) [#/Area] NONE SEEN Normal NONE SEEN [facility] Comment on above: Performed By: #### E RUR UMICRO #### [facility] [address] [place], [place] [id number] Flex Sis CAST NONE SEEN Normal NONE SEEN [facility] Comment on above: Performed By: #### E RUR, UMICRO #### [facility] [address] [place], [place] [id number] Flex Sis Crystals LM Nom (Urine sed) NONE SEEN Normal NONE SEEN [facility] Comment on above: Performed By: #### E RUR, UMICRO #### [facility] [address] [place], [place] [id number] Flex Sis CULTURE NOT INDICATED Normal [facility] Comment on above: Performed By: #### E RUR UMICRO #### [facility] [address] [place], [place] [address] Flex Sis Epithelial cells LM.HPF (Urine sed) [#/Area] RARE Normal [facility] Comment on above: Performed By: #### E RUR, UMICRO #### [facility] [address] [place], [place] [address] Flex Sis MUCOUS NONE SEEN Normal NONE SEEN [facility] Comment on above: Performed By: #### E RUR, UMICRO #### [facility] [address] [place], [place] [address] Flex Sis RBC (U) [#/Vol] 20-50 Normal 0-2 [facility] Comment on above: Performed By: #### E RUR, UMICRO #### [facility] [address] [place], [place] [address] Flex Sis WBC (Bld) [#/Vol] 2-5 Normal NONE SEEN The [facility] Comment on above: Performed By: #### E RUR, UMICRO #### [facility] [address] [place], [place] [address] Flex Sis XR ABD FLAT UP/PA Casey 03-02 XR ABD FLAT UP/PA CH Patient: ALBERTO GERMAIN Exam Date: 03/02/2019 : 1990 Gender:M Ordering : DR IZA ZENG D.O. Admission #: [id number] Family : DR DALJIT PEDRO D.O. Order #: [id number] CLICK HERE TO VIEW EXAM RADIOLOGY REPORT [...] Jimenez M.D. on 03/02/2019 at 13:17 Normal [facility] T4on 12-22-2018 T4 [Mass/Vol] 8.30 ug/dL Normal 5.53-11.00 [facility] Comment on above: Performed By: #### T 4, TSH #### [facility] [address] [place], [place] [address] [employer] [facility] TSHon 12-22-2018 TSH Qn 2.189 uIU/mL Normal 0.470-4.680 [facility] Comment on above: Performed By: #### T 4, TSH #### [facility] [address] [place], [place] [address] [employer] [place] TSH Qn SEE BELOW Normal [facility] Comment on above: Result Comment: <0.3 4 UIU/ml HYPERTHYROID 0.34-5.60 UIU/ml EUTHYROID >5.60 UIU/ml HYPOTHYROID Performed By: #### T 4, TSH #### [facility] [address] [id number] [employer] Vital Signs Date Time Vital Sign Value Performing Clinician Faci lity 06-05-2023 18:48-0500 Body temperature 97.7 [degF] DO Konstantin Tupa Work Phone: [facility] 06-05-2023 18:48-0500 Diastolic blood pressure 78 mm[Hg] DO Konstantin Tupa Work Phone: [facility] 06-05-2023 18:48-0500 Heart rate 64 /min DO Konstantin Tupa Work Phone: [facility] 06-05-2023 18:48-0500 Respiratory rate 20 /min DO Konstantin Tupa Work Phone: [facility] 06-05-2023 18:48-0500 SaO2% (BldA) [Mass fraction] 94 % DO Konstantin Tupa Work Phone: [facility] 06-05-2023 18:48-0500 Systolic blood pressure 117 mm[Hg] DO Konstantin Tupa Work Phone: [facility] 06-05-2023 12:38-0500 Body height 185.42 cm DO Konstantin Khan Work Phone: [facility] 06-05-2023 12:38-0500 Body weight 109.7 kg DO Konstantin Kahn Work Phone: [facility] 10-13-2022 02:36-0400 Heart rate 65 /min Jean Osborne MD Work Phone: [facility] 10-13-2022 02:36-0400 Respiratory rate 13 /min Jean Osborne MD Work Phone: [facility] [employer] 10-13-2022 02:36-0400 SaO2% (BldA) [Mass fraction] 97 % Jean Osborne MD Work Phone: [facility] [employer] 10-13-2022 01:38-0400 Body height 182.9 cm Jean Osborne MD Work Phone: [facility] [employer] 10-13-2022 01:38-0400 Body mass index (BMI) [Ratio] 33.28 kg/m2 Jean Osborne MD Work Phone: [facility] [employer] 10-13-2022 01:38-0400 Body temperature 98.1 [degF] Jean Osborne MD Work Phone: [facility] [employer] 10-13-2022 01:38-0400 Body weight 111.31 kg Jean Osborne MD Work Phone: [facility] [employer] 10-13-2022 01:38-0400 Diastolic blood pressure 81 mm[Hg] Jean Osborne MD Work Phone: [facility] 10-13-2022 01:38-0400 Systolic blood pressure 134 mm[Hg] Jean Osborne MD Work Phone: [facility] 01-16-2022 15:16-0400 Body height 182.9 cm Andrew Connors MD Work Phone: [employer] [facility] 01-16-2022 15:16-0400 Body mass index (BMI) [Ratio] 29.16 kg/m2 Andrew Connors MD Work Phone: [employer] [facility] 01-16-2022 15:16-0400 Body temperature 98.29 [degF] Andrew Connors MD Work Phone: [employer] [facility] 01-16-2022 15:16-0400 Body weight 97.52 kg Andrew Connors MD Work Phone: [employer] [facility] 01-16-2022 15:16-0400 Diastolic blood pressure 93 mm[Hg] Andrew Connors MD Work Phone: [employer] [facility] 01-16-2022 15:16-0400 Heart rate 89 /min Andrew Connors MD Work Phone: [employer] [facility] 01-16-2022 15:16-0400 Respiratory rate 16 /min Andrew Connors MD Work Phone: [employer] [facility] 01-16-2022 15:16-0400 SaO2% (BldA) [Mass fraction] 98 % Andrew Connosr MD Work Phone: [employer] [facility] 01-16-2022 15:16-0400 Systolic blood pressure 125 mm[Hg] Andrew Connors MD Work Phone: [employer] [facility] 01-08-2022 00:11-0400 Body height 182.9 cm Ligia Joseph MD Work Phone: [employer] [facility] 01-08-2022 00:11-0400 Body mass index (BMI) [Ratio] 29.7 kg/m2 Ligia Joseph MD Work Phone: [employer] [facility] 01-08-2022 00:11-0400 Body temperature 98.71 [degF] Ligia Joseph MD Work Phone: [employer] [facility] 01-08-2022 00:11-0400 Body weight 99.34 kg Ligia Joseph MD Work Phone: [facility] 01-08-2022 00:11-0400 Diastolic blood pressure 74 mm[Hg] Ligia Joseph MD Work Phone: [facility] 01-08-2022 00:11-0400 Heart rate 79 /min Ligia Joseph MD Work Phone: [facility] 01-08-2022 00:11-0400 Respiratory rate 18 /min Ligia Joseph MD Work Phone: [facility] 01-08-2022 00:11-0400 SaO2% (BldA) [Mass fraction] 98 % Ligia Joseph MD Work Phone: [facility] 01-08-2022 00:11-0400 Systolic blood pressure 124 mm[Hg] Ligia Joseph MD Work Phone: [facility] Encounters Encounter Date Encounter Type Care Provider Facility Start: 12-21-2024 End: 12-21-2024 [facility] Start: 12-21-2024 End: 12-21-2024 Subsequent hospital visit by physician [facility] Schedule [facility] Comment on above: Palpitations; Screening for cardiovascular condition Palpitations; Panic attack Start: 12-19-2024 End: 12-19-2024 ambulatory [facility] Start: 12-15-2024 End: 12-15-2024 ambulatory [facility] Start: 12-01-2024 End: 12-01-2024 ambulatory [facility] Start: 11-23-2024 End: 11-23-2024 ambulatory [facility] Start: 11-09-2024 End: 11-09-2024 ambulatory [facility] Start: 10-31-2024 End: 10-31-2024 ambulatory ANDREW W [facility] Start: 2024 End: 2024 ambulatory ANDREW W [facility] Start: 10-09-2024 End: 10-09-2024 ambulatory ANDREW W [facility] Start: 10-02-2024 End: 10-02-2024 ambulatory ANDREW W [facility] Start: 09-25-2024 End: 09-25-2024 ambulatory ANDREW W [facility] Start: 09-14-2024 End: 09-14-2024 ambulatory ANDREW W [facility] Start: 09-01-2024 End: 09-01-2024 ambulatory ANDREW W [facility] Start: 08-16-2024 End: 08-16-2024 ambulatory ANDREW W [facility] Start: 08-02-2024 End: 08-02-2024 ambulatory ANDREW W [facility] Start: 07-21-2024 End: 07-21-2024 ambulatory ANDREW W [facility] Start: 07-12-2024 End: 07-12-2024 ambulatory ANDREW W [facility] Start: 07-04-2024 End: 07-04-2024 ambulatory ANDREW W [facility] Start: 06-28-2024 End: 06-28-2024 ambulatory ANDREW W [facility] Start: 06-20-2024 End: 06-20-2024 ambulatory ANDREW W [facility] Start: 05-23-2024 End: 05-23-2024 ambulatory ANDREW W [facility] Start: 05-19-2024 End: 05-19-2024 ambulatory ANDREW W [facility] Start: 05-12-2024 End: 05-12-2024 ambulatory ANDREW W [facility] Start: 05-02-2024 End: 05-02-2024 ambulatory ANDREW [facility] Start: 04-25-2024 End: 04-25-2024 ambulatory ANDREW [facility] Start: 04-21-2024 End: 04-21-2024 ambulatory ANDREW [facility] Start: 04-05-2024 End: 04-05-2024 ambulatory ANDREW [facility] Start: 03-27-2024 End: 03-27-2024 ambulatory ANDREW [facility] Start: 03-21-2024 End: 03-21-2024 ambulatory ANDREW [facility] Start: 03-17-2024 End: 03-17-2024 ambulatory ANDREW [facility] Start: 03-10-2024 End: 03-14-2024 Telephone encounter Camilla Camacho MD Work Phone: Ophthalmology Comment on above: Patient Question Start: 03-10-2024 End: 03-10-2024 ambulatory ANDREW [facility] Start: 02-25-2024 End: 02-25-2024 ambulatory ANDREW [facility] Start: 02-11-2024 End: 02-11-2024 ambulatory ANDREW [facility] Start: 01-26-2024 End: 01-26-2024 ambulatory ANDREW [facility] Start: 01-07-2024 End: 01-07-2024 ambulatory ANDREW [facility] Start: 12-22-2023 End: 12-22-2023 ambulatory ANDREW [facility] Start: 10-06-2023 End: 10-06-2023 ambulatory TEOFILO GALO Facility:[facility] Start: 10-06-2023 End: 10-06-2023 Patient encounter procedure Camilla Camacho MD Work Phone: Ophthalmology Comment on above: Acute macular neuror etinopathy (Primary Dx) Start: 08-12-2023 End: 08-12-2023 Subsequent hospital visit by physician Chaparrita Tran DO Work Phone: [facility] Start: 06-05-2023 End: 06-05-2023 Emergency department patient visit Konstantin Khan Facility:[facility] Start: 06-05-2023 End: 06-05-2023 Emergency department patient visit DO Konstantin Khan Work Phone: [facility] Work Phone: Start: 10-13-2022 End: 10-13-2022 Emergency department patient visit Jean Osborne MD Work Phone: [facility] ED Comment on above: Chest pain, pleuriti [...] by physician Kerri Pond PT Work Phone: [facility] Comment on above: Arrived Start: 01-16-2022 End: 01-16-2022 Emergency department patient visit Andrew Connors MD Work Phone: [facility] ED Comment on above: Acute exacerbation o f chronic low back pain (Primary Dx) Start: 01-08-2022 End: 01-08-2022 Emergency department patient visit Ligia Joseph MD Work Phone: [facility] ED Comment on above: Acute bilateral low back pain without sciatica (Primary Dx) Start: 05-02-2019 End: 05-02-2019 Patient encounter procedure DALJIT PEDRO Facility:[facility] Start: 03-02-2019 End: 03-02-2019 Patient encounter procedure DALJIT HILDRETH Facility:[facility] Start: 01-02-2019 Patient encounter procedure DALJIT HILDRETH Facility:[facility] Start: 12-22-2018 End: 12-23-2018 Patient encounter procedure DALJIT HILDRETH Facility:[facility] Start: 12-22-2018 End: 12-22-2018 Patient encounter procedure DALJIT HILDRETH Facility:[facility] Start: 12-21-2018 End: 12-21-2018 Patient encounter procedure DALJIT HILDRETH Facility:[facility] Start: 12-12-2018 End: 12-12-2018 Patient encounter procedure DALJIT HILDRETH Facility:[facility] Start: 12-03-2018 End: 12-03-2018 Patient encounter procedure DALJIT HILDRETH Facility:[facility] Start: 11-13-2018 End: 11-13-2018 Patient encounter procedure DALJIT PEDRO Facility:[facility] Procedures Date Procedure Procedure Detail Performing Clinician Start: 12-21-2024 Ecg routine ecg w/le ast 12 lds w/i&r Chaparrita Tran DO Work Phone: Start: 12-21-2024 Comprehensive metabo lic panel Chaparrita Tran DO Work Phone: Start: 12-21-2024 Lipid panel Chaparrita Tran DO Work Phone: Start: 12-22-2023 Follow-up visit Follow-up ANDREW REEDER Start: 10-06-2023 OCT ANGIOGRAPHY OU ( BOTH EYES) Teofilo Galo PA-C Work Phone: Start: 10-06-2023 Computerized ophthal monserrat imaging optic nerve Teofilo Galo PA-C Work Phone: Start: 10-06-2023 End: 10-06-2023 Computerized ophthalmic imaging retina Teofilo Galo PA-C Work Phone: Start: 08-12-2023 Hemoglobin glycosyla dung a1c Jesus De La Cruz MD Work Phone: Start: 06-05-2023 CT of head without contrast DO Konstantin Khan Work Phone: Start: 10-13-2022 Ecg routine ecg w/le ast 12 lds w/i&r Jean Osborne MD Work Phone: Start: 10-13-2022 BASIC METABOLIC PANE L W/ REFLEX TO MG FOR LOW K Jean Osborne MD Work Phone: Start: 10-13-2022 Fibrin dgradj produc ts d-dimer quantitative Jean Osborne MD Work Phone: Start: 01-16-2022 Radex spine lumbosac ral minimum 4 views Andrew Connors MD Work Phone: Plan of Treatment Date Care Activity Detail Author Start: 06-21-2025 Depression Monitoring Depression Mon itoring [employer] Start: 01-05-2025 Influenza vaccination Flu vaccine (# 1) [employer] Start: 10-20-2024 End: 03-29-2025 OCT MACULA CIRRUS OU (BOTH EYES) OCT MACULA CIRRUS OU (BOTH EYES) [facility] Imaging Routine Acute macular neuroretinopathy Expected: 10/20/2024, Expires: 03/29/2025 [facility] Work Phone: Comment on above: Expected: 10/20/2024 , Expires: 03/29/2025 Start: 06-30-2024 Depression Monitoring Depression Mon [facility]oring [employer] Start: 02-06-2024 Covid-19 Vaccine ( season) Covid-19 Vaccine ( season) [facility] Start: 02-06-2024 Influenza vaccination C [facility] Start: 01-27-2024 End: 01-27-2024 Patient encounter procedure 01/27/2024 1:45 PM EDT Office Visit [facility] [address] [address] Camilla Camacho MD [address] [place] [address] Return in about 3 months (around 01/06/2024) for uveitis follow up in 3 months. Ophthalmology Comment on above: Return in about 3 mo nths (around 01/06/2024) for uveitis follow up in 3 months. Start: 08-30-2023 End: 08-30-2023 Patient encounter procedure 08/30/2023 8:20 AM EDT Office Visit [facility] [address] [place] [address] Chaparrita Tran DO [address] [place] [id number] 2 mon follow up [facility] Comment on above: 2 mon follow up Start: 06-17-2023 Depression Monitoring Depression Mon itoring [facility] Start: 02-24-2023 Depression Monitoring Depression Mon itoring [facility] Start: 02-05-2023 Covid-19 Vaccine ( season) Covid-19 Vaccine ( season) [facility] Start: 01-05-2023 Influenza vaccination B [facility] Start: 04-16-2022 End: 04-16-2022 Patient encounter procedure 04/16/2022 Appointment Physical Therapy Kerri Pond, USHA [address] [place] [address] [facility] Start: 04-02-2022 End: 04-02-2022 Patient encounter procedure 04/02/2022 Appointment Physical Therapy Kerri Pond, PT [address] [place] [address] [facility] Start: 03-27-2022 End: 03-27-2022 Patient encounter procedure 03/27/2022 Appointment Physical Therapy Kerri Pond, PT [address] [place] [address] [facility] Start: 03-24-2022 End: 03-24-2022 Patient encounter procedure 03/24/2022 Appointment Physical Therapy Pratima Howard [facility] Start: 03-20-2022 End: 03-20-2022 Patient encounter procedure 03/20/2022 Appointment Physical Therapy Kerri Pond, PT [address] [place] [address] [facility] Start: 03-17-2022 End: 03-17-2022 Patient encounter procedure 03/17/2022 Appointment Physical Therapy Kerri Pond, PT [address] [place] [address] [facility] Start: 03-13-2022 End: 03-13-2022 Patient encounter procedure 03/13/2022 Appointment Physical Therapy Pratima Howard [facility] Start: 03-11-2022 End: 03-11-2022 Patient encounter procedure 03/11/2022 Appointment Physical Therapy Pratima Howard [facility] Start: 02-05-2022 Influenza vaccination Flu vaccine (# 1) [facility] Start: 01-05-2022 Influenza vaccination Flu vaccine (# 1) [facility] Start: 2009 DTaP/Tdap/Td vaccine (1 - Tdap) DTaP/Tdap/Td vaccine (1 - Tdap) [facility] Start: 2009 Hepatitis B vaccine (1 of 3 - 19+ 3-dose series) Hepatitis B vaccine (1 of 3 - 19+ 3-dose series) [facility] Start: 2008 Anxiety Screening Anxiety Screening [facility] Start: 2008 Depression Screening Depression Scre ening [facility] Start: 2008 Hepatitis C screening B [facility] Start: 2008 HIV screening HIV Screening [facility] Start: 2005 HIV screening HIV screen [facility] Start: 10-20-2003 Varicella vaccine (1 of 2 - 13+ 2-dose series) Varicella vaccine (1 of 2 - 13+ 2-dose series) [facility] Start: 02-27-2003 Hepatitis B Vaccine (2 of 3 - 3-dose series) Hepatitis B Vaccine (2 of 3 - 3-dose series) [facility] Start: 2002 Depression Screen Depression Screen [facility] Start: 2001 Urine microalbumin profile DTaP,Tdap,Td Vaccine (5 - Tdap) [facility] Start: 10-20-1991 Varicella vaccine (1 of 2 - 2-dose childhood series) Varicella vaccine (1 of 2 - 2-dose childhood series) [facility] Start: 04-21-1991 COVID-19 Vaccine (#1) COVID-19 Vacci ne (#1) [facility] Start: 1990 Hepatitis B vaccine (1 of 3 - 3-dose series) Hepatitis B vaccine (1 of 3 - 3-dose series) [facility] End: 08-12-2023 Cryoglobulin [facility] Comment on above: Once for 1 Occurrenc es starting 08/12/2023 until 08/12/2023 EKG 12 Lead EKG 12 Lead ECG STAT 10/13/2022 1:55 AM EDT [facility] Work Phone: EKG 12 lead EKG 12 lead ECG Routine Palpitations Panic attack 12/21/2024 12:45 PM EDT [facility] End: 10-14-2023 Exercise stress test study CARDIAC STRESS TEST EXERCISE ONLY [facility] Routine Chest pain, unspecified type 1 Occurrences starting 10/13/2022 until 10/14/2023 [facility] Work Phone: Comment on above: 1 Occurrences starti ng 10/13/2022 until 10/14/2023 End: 08-12-2023 HIV Screen [employer] [facility] Comment on above: Once for 1 Occurrenc es starting 08/12/2023 until 08/12/2023 End: 08-12-2023 IgM [Mass/volume] in Serum or Plasma [employer] [facility] Comment on above: Once for 1 Occurrenc es starting 08/12/2023 until 08/12/2023 Oxygen therapy [Minimum Data Set] Initiate Oxygen Therapy Protocol Respiratory Care Routine As Needed until discontinued starting 10/13/2022 [employer] Work Phone: Comment on above: As Needed until disc ontinued starting 10/13/2022 Patient Education Headache, Adult ED [facility] Work Phone: Patient referral [facility] Work Phone: End: 08-12-2023 Viscosity, Serum [employer] Work Phone: Comment on above: Once for 1 Occurrenc es starting 08/12/2023 until 08/12/2023 End: 10-13-2022 XR CHEST PORTABLE XR CHEST PORTABLE Imaging STAT Once for 1 Occurrences starting 10/13/2022 until 10/13/2022 [employer] Work Phone: Comment on above: Once for 1 Occurrenc es starting 10/13/2022 until 10/13/2022 XR CHEST PORTABLE XR CHEST KARINA BLE Imaging STAT 10/13/2022 1:52 AM EDT [employer] Work Phone: Immunizations Immunization Date Immunization Notes Care Provider Jael scott 09-03-2020 COVID-19 Ad26.COV2.S ([place]) DO Konstantin Khan Work Phone: [facility] Payers Date Payer Category Payer Medicaid [employer] [id number] 2022-Present [phone] [address] [place] [address] Medicaid [id number] 1990 Unknown [id number] 2.16.840.1.606107.3.579.2.593 1990 Unknown [id number] 2.16.840.1.226005.3.579.2.593 1990 Unknown [id number] 2.16.840.1.857574.3.579.2.593 1990 Unknown [id number] 2.16.840.1.867820.3.579.2.593 1990 Unknown [id number] 2.16.840.1.244858.3.579.2.59 1990 Unknown [id number] 2.16.840.1.076907.3.579.2.593 1990 Unknown [id number] 2.16.840.1.043803.3.579.2.59 1990 Unknown [id number] 2.16.840.1.638971.3.579.2.593 1990 Unknown [id number] 2.16.840.1.795778.3.579.2.593 1990 Unknown [id number] 2.16.840.1.604422.3.579.2.128 1990 Unknown [id number] 2.16.840.1.368392.3.579.2.1285 1990 Unknown [id number] 2.16.840.1.935879.3.579.2.128 1990 Unknown [id number] 2.16.840.1.632596.3.579.2.1285 1990 Unknown [id number] 2.16.840.1.518635.3.579.2.1285 1990 Unknown [id number] 2.16.840.1.827386.3.579.2.128 1990 Unknown [id number] 2.16.840.1.177427.3.579.2.1285 1990 Unknown [id number] 2.16.840.1.188847.3.579.2.1285 1990 Unknown [id number] 2.16.840.1.417845.3.579.2.1285 1990 Unknown [id number] 2.16.840.1.523792.3.579.2.1285 1990 Unknown [id number] 2.16.840.1.364574.3.579.2.1285 1990 Unknown [id number] 2.16.840.1.477448.3.579.2.1285 1990 Unknown [id number] 2.16.840.1.035059.3.579.2.1285 1990 Unknown [id number] 2.16.840.1.434471.3.579.2.1285 1990 Unknown [id number] 2.16.840.1.694112.3.579.2.1285 1990 Unknown [id number] 2.16.840.1.042560.3.579.2.1285 1990 Unknown [id number] 2.16.840.1.656291.3.579.2.1285 1990 Unknown [id number] 2.16.840.1.460972.3.579.2.1285 1990 Unknown [id number] 2.16.840.1.503639.3.579.2.1285 1990 Unknown [id number] 2.16.840.1.100652.3.579.2.1285 1990 Unknown [id number] 2.16.840.1.057801.3.579.2.1285 1990 Unknown [id number] 2.16.840.1.509323.3.579.2.1285 1990 Unknown [id number] 2.16.840.1.866265.3.579.2.1285 1990 Unknown [id number] 2.16.840.1.834182.3.579.2.1285 1990 Unknown [id number] 2.16.840.1.928359.3.579.2.1285 1990 Unknown [id number] 2.16.840.1.491153.3.579.2.1285 1990 Unknown [id number] 2.16.840.1.596684.3.579.2.1285 1990 Unknown [id number] 2.16.840.1.838781.3.579.2.1285 1990 Unknown [id number] 2.16.840.1.964160.3.579.2.1285 1990 Unknown [id number] 2.16.840.1.139035.3.579.2.1285 1990 Unknown [id number] 2.16.840.1.477329.3.579.2.1285 1990 Unknown [id number] 2.16.840.1.912378.3.579.2.1285 1990 Unknown [id number] 1990 Unknown [id number] 1990 Unknown [id number] 1990 Unknown [id number] 1990 Unknown [id number] 1959 Self-pay 1959 Unknown [id number] Unknown [id number] Social History Date Type Detail Facility Start: 01-08-2022 End: 10-28-2022 Tobacco smoking status NHIS Never smoked tobacco [employer] Start: 01-08-2022 End: 10-28-2022 Tobacco use and exposure Smokeless tobacco non-user [employer] Work Phone: Start: 01-08-2022 End: 08-14-2022 History SDOH Alcohol Frequency 2 [employer] Work Phone: Start: 1990 Sex Assigned At Not on file B ON [facility] Work Phone: Start: 12-29-2021 End: 01-16-2022 Exposure to SARS-CoV-2 (event) Not sure [employer] Work Phone: Start: 02-24-2022 End: 08-14-2022 History SDOH Financial 5 [employer] Work Phone: Start: 02-24-2022 End: 08-14-2022 History SDOH Food Worry 1 [employer] Work Phone: Start: 1990 Sex Assigned At Male F [facility] Start: 06-04-2023 End: 08-04-2024 History of Social function [employer] Start: 06-04-2023 End: 08-04-2024 Alcohol Use Disorder Identification Test - Consumption [AUDIT-C] [facility] How often to you hav e a drink containing alcohol? Never [facility] How many standard dr inks containing alcohol do you have on a typical day? Patient does not drink [employer] (I/We) worried larry er (my/our) food would run out before (I/we) got money to buy more. Never true [employer] At any time in the p ast 12 months, were you homeless or living in usp [including now]? No [employer] [facility] Start: 07-17-2012 Sex Male (finding) [facility] NEGATED: Highlighted rowStart: JANINEF History of tobacco use Passive smoker [facility] Clinical Notes 03-11-2022 to 03-14-2024 Telephone Encounter [...] Would only work during acute episode PK [facility] 03-14-2024 Miscellaneous Notes Called and [...] him if it is possible? https://www.frontiersin.org/journ als/medicine/articles/10.3389/fme d.2024.2893225/full We have no real data to help us with this question. Certainly it is either an inflammatory or vascular condition so steroids may help if there are no contraindications. There is not enough data to recommend it in patients who we see with this issue. Alberto Germain [id number] (home) Dr. 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 This was given to you in the manilla folder last week and also scanned in pt chart. You can call the pt back or Dr. Tran on her cell at [phone]. LV 10/06/23 No FV scheduled Assessment & Plan Camilla Camacho MD filed at 10/06/2023 4:02 PM Status: Signed New patient referred by Lola Galo PA-C. Previously was receiving care in [place], [place]. 1. Resolving Acute Macular Neuroretinopathy, both eyes - Acutely developed bilateral central vision loss early 06/2023; prior to this, he had more minor visual symptoms; his symptoms have since very gradually improved - Describes/draws his scotomas as a paracentral broken ring right eye and a central galena left eye (contains a pinhole through which [...] 10/06/2023 Camilla Camacho MD Professor of Ophthalmology [facility] [employer] [facility] documented in this encounter [facility] 03-13-2024 Telephone encounter Note Called pt back he wants to know if there is any corticosteroid operation that can be done? I am familiar with this article as well as other case reports along the same lines. [facility] has no known treatment even when not related to COVID. Steroids have been tried with limited success. PK [facility] 03-13-2024 Telephone encounter Note Called pt to let him know. He said the article he was reading is freshly new in regards to his exact condition. This is from July 2023. He wanted to know if you could go over this article attached and discuss with him if it is possible? https://www.frontiersin.org/journ als/medicine/articles/10.3389/fme d.2023.7379290/full [facility] 03-13-2024 Telephone encounter Note We have no real data to help us with this question. Certainly it is either an inflammatory or vascular condition so steroids may help if there are no contraindications. There is not enough data to recommend it in patients who we see with this issue. [facility] 03-10-2024 Telephone encounter Note Alberto A Jessa [id number] (home) Dr. 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 This was given to you in the manilla folder last week and also scanned in pt chart. You can call the pt back or Dr. Tran on her cell at [phone]. LV 10/06/23 No FV scheduled Assessment & Plan Camilla Camacho MD filed at 10/06/2023 4:02 PM Status: Signed New patient referred by Lola Galo PA-C. Previously was receiving care in [place], [place]. 1. Resolving Acute Macular Neuroretinopathy, both eyes - Acutely developed bilateral central vision loss early 06/2023; prior to this, he had more minor visual symptoms; his symptoms have since very gradually improved - Describes/draws his scotomas as a paracentral broken ring right eye and a central galena left eye (contains a pinhole through which [...] 10/06/2023 Camilla Camacho MD Professor of Ophthalmology [facility] 10-06-2023 Note Date of Procedure 10/06/2023. Supervisor General Information Yarn Texture Machine Operator: Violeta Moreno. Start time: 1:02 PM. Stop time: 1:02 PM. Interpretation Right Eye Findings include IS/OS junction, Atrophy; Negative for Intraretinal fluid, Subretinal fluid. Left Eye Findings include IS/OS junction, Atrophy; Negative for Intraretinal fluid, Subretinal fluid. Interval Change Right Eye Initial. Left Eye Initial. [facility]EISS 10-06-2023 Note Date of Procedure 10/06/2023. Supervisor General Information Yarn Texture Machine Operator: af. Stop time: 2:25 PM. VONNIE Manzanares . Notes split inf RNFL bundle (otherwise normal RNFL) both eyes; patches of GCL thinning right eye > left eye [facility]EISS 10-06-2023 Note Date of Procedure 10/06/2023. Supervisor General Information Yarn Texture Machine Operator: Violeta Moreno. Start time: 1:01 PM. Stop time: 1:01 PM. Disc Right Eye Normal. Left Eye Normal. Macula Right Eye Normal. Left Eye Normal. Periphery Right Eye Normal. Left Eye Normal. ZEISS 10-06-2023 Note Date of Procedure 10/06/2023. Supervisor General Information Yarn Texture Machine Operator: af. Stop time: 2:26 PM. VONNIE Manzanares . Interpretation Right Eye Findings include Enlarged LIZETTE, Nonperfusion (Deep Plexus). Left Eye Findings include Enlarged LIZETTE, Nonperfusion (Deep Plexus). [facility]EISS 10-06-2023 Note HNO ID: [id number] Author: CAMILLA CAMACHO MD Service: ? Author Type: Physician Type: Progress Notes Filed: 10/06/2023 16:02 Note Text: New patient referred by Lola Galo PA-C. Previously was receiving care in [place]. 1. Resolving Acute Macular Neuroretinopathy, both eyes - Acutely developed bilateral central vision loss early 06/2023; prior to this, he had more minor visual symptoms; his symptoms have since very gradually improved - Describes/draws his scotomas as a paracentral broken ring right eye and a central galena left eye (contains a pinhole through which [...] 10/06/2023 Camilla Camacho MD Professor of Ophthalmology [facility] 10-06-2023 History of Present illness Narrative New patient referred by Lola Galo PA-C. Previously was receiving care in [place], [place]. 1. Resolving Acute Macular Neuroretinopathy, both eyes - Acutely developed bilateral central vision loss early 06/2023; prior to this, he had more minor visual symptoms; his symptoms have since very gradually improved - Describes/draws his scotomas as a paracentral broken ring right eye and a central galena left eye (contains a pinhole through which [...] 10/06/2023 Camilla Camacho MD Professor of Ophthalmology [facility] [employer] [facility] documented in this encounter [facility] 04-16-2022 History of Present illness Narrative [facility] Date: 04/16/2022 Patient Name: Alberto Germain : 1990 Pt No Showed Appt- Phoned patient regarding missed appt. States he had another conflicting appt at that time. Discussed current status and will not schedule additional appts. Patient will continue with independent program and follow up with Dr. Tran. Will send progress note /discharge summary KERRI POND, PT Date: 04/16/2022 documented in this encounter [facility] Phone: 04-16-2022 Hospital course Narrative Images from the original note were not included. [facility] Outpatient Physical Therapy Discharge Summary Patient: Alberto Germain : 1990 Referring Provider Chaparrita Tran Diagnosis: Bilateral low back pain Date Treatment Initiated: 03/05/22 Date of Last Treatment: 04/02/22 PT Visit Information Onset Date: 02/24/22 PT Insurance Information: [place] Total # of Visits to Date: 5 [...] Achieved Comments: Thank you for this referral KERRI POND, PT Date: 04/16/2022 documented in this encounter [facility] Phone: 04-02-2022 History of Present illness Narrative Images from the original note were not included. [facility] Outpatient Physical Therapy Daily Note Date: 04/02/2022 Patient Name: Alberto Germain : 1990 (31 y.o.) Referring Provider: Chaparrita Tran Diagnosis: Bilateral low back pain Treatment Diagnosis: LBP Onset Date: 02/24/22 PT Insurance Information: [place] Per Physician Order Total # of Visits [...] Exercises/Modalities/Manual: See DocFlow Sheet Education: Issued HEP [id number] Goals (Total # of Visits to Date: 5) Short Term Goals Time Frame for Short Term Goals: 6 visits Short Term Goal 1: Educate on home program of trunk/hip stretching and strengthening ex-met Group Home Goals Time Frame for Group Home Goals : 12 visits Pre Wave Assembler Goal 1: Decrease subjective lumbar/hip pain to < 2/10 with sitting activities or prolonged standing Group Home Goal 2: Decrease LE radicular symptoms by > 75% in frequency and/or severity Group Home Goal 3: Educate on proper lifting techniques and ergonomic ideas for sitting and standing Post Treatment Pain: 06/16 Time In: 1410 Time Out : 1435 Timed Code Treatment Minutes: 25 Minutes Total Treatment Time: 30 Minutes KERRI POND PT Date: 04/02/2022 documented in this encounter [facility] Phone: 03-27-2022 History of Present illness Narrative [facility] Date: 03/27/2022 Patient Name: Alberto Germain : 1990 Pt No Showed Appt KERRI POND PT Date: 03/27/2022 documented in this encounter [facility] [employer] Work Phone: 03-24-2022 History of Present illness Narrative Images from the original note were not included. [facility] Outpatient Physical Therapy Daily Note Date: 03/24/2022 Patient Name: Alberto Germain : 1990 (31 y.o.) Referring Provider (secondary): Chaparrita Tran Diagnosis: Bilateral low back pain Treatment Diagnosis: LBP Onset Date: 02/24/22 PT Insurance Information: [place] Per Physician Order Total # of Visits [...] program of trunk/hip stretching and strengthening ex-met Group Home Goals Time Frame for Group Home Goals : 12 visits Pre Wave Assembler Goal 1: Decrease subjective lumbar/hip pain to < 2/10 with sitting activities or prolonged standing Group Home Goal 2: Decrease LE radicular symptoms by > 75% in frequency and/or severity Pre Wave Assembler Goal 3: Educate on proper lifting techniques and ergonomic ideas for sitting and standing Post Treatment Pain: 1/10 Time In: 1248 Time Out : 1318 Timed Code Treatment Minutes: 30 Minutes Total Treatment Time: 30 Minutes Pratima Howard SENIOR ORACLE ADF DEVELOPER Date: 03/24/2022 documented in this encounter [facility] Phone: 03-17-2022 History of Present illness Narrative Images from the original note were not included. [facility] Outpatient Physical Therapy Daily Note Date: 03/17/2022 Patient Name: Alberto Germain : 1990 (31 y.o.) Referring Provider (secondary): Chaparrita Tran Diagnosis: Bilateral low back pain Treatment Diagnosis: LBP Onset Date: 02/24/22 PT Insurance Information: [place] Per Physician Order Total # of Visits [...] DocFlow Sheet Education: Issued written HEP Access [id number] Goals (Total # of Visits to Date: 3) Short Term Goals Time Frame for Short Term Goals: 6 visits Short Term Goal 1: Educate on home program of trunk/hip stretching and strengthening ex Pre Wave Assembler Goals Time Frame for Group Home Goals : 12 visits Group Home Goal 1: Decrease subjective lumbar/hip pain to < 2/10 with sitting activities or prolonged standing Pre Wave Assembler Goal 2: Decrease LE radicular symptoms by > 75% in frequency and/or severity Group Home Goal 3: Educate on proper lifting techniques and ergonomic ideas for sitting and standing Post Treatment Pain: 08/14 Time In: 1350 Time Out : 1430 Timed Code Treatment Minutes: 40 Minutes Total Treatment Time: 40 Minutes KERRI POND PT Date: 03/17/2022 documented in this encounter [facility] Phone: 03-11-2022 History of Present illness Narrative [facility] Date: 03/11/2022 Patient Name: Alberto Germain : 1990 Pt No Showed Appt Left voicemail requesting confirmation for next appt Pratima Howard SENIOR ORACLE ADF DEVELOPER Date: 03/11/2022 Physical Therapy [facility] Date: 03/11/2022 Patient Name: Alberto Germain : 1990 Patient called and he was not able to make his appointment. Will return on the next scheduled appointment. Mindy Poole Shock Date: 03/11/2022 documented in this encounter [employer] Work Phone: Evaluation note Diagnosis Acute bilateral low back pain without sciatica- Primary documented in this encounter [employer] Work Phone: evaluation note* Diagnosis Acute exacerbation of chronic low back pain- Primary documented in this encounter [employer] Work Phone: evaluation note* Diagnosis Chest pain, pleuritic- Primary Painful respiration Chest pain, unspecified type documented in this encounter [employer] Work Phone: evaluation noteNo assessment information available [facility] Work Phone: Evaluation note* Diagnosis Acute macular neuroretinopathy- Primary [facility] Diagnosis Palpitations Screening for cardiovascular condition Screening for other and unspecified cardiovascular conditions [facility] Diagnosis Palpitations Panic attack Panic disorder without agoraphobia documented in this encounter [facility] Discharge instructions* Attachments The following attachments cannot be sent through Care Everywhere. * Back: Stretches: Exercises (Turkmen) [facility] Work Phone: Hospital Discharge instructions* Attachments The following attachments cannot be sent through Care Everywhere. * Back Pain (Turkmen) [facility] Work Phone: Hospital Discharge instructions* Attachments The following attachments cannot be sent through Care Everywhere. * Pleurisy (Turkmen) * Chest Pain (Turkmen) [facility] Phone: reason for visit Narrative* Outpatient Service (Routine) - Not Required - RTA Specialty Diagnoses / Procedures Referred By Contac t Referred To Contact Cardiology Diagnoses Palpitations Panic attack Procedures EKG 12 lead Chaparrita Tran, DO [address] [place] [address] Phone: tel: fax: Referral ID Status Reason Start Date Expiration Date V isits Requested Visits Authorized [id number] Not Required - RTA 12/21/2024 12/21/2025 1 1 [employer] Summary Purpose Family History No Family History Records Found Relationship Condition Age at Onset Recorded Date/T zoran Not Specified No pertinent family history Unknown Advance Directives No Advanced Directives Records Found Advance Directive Response Recorded Date/ Time Advance Directives No August 07 20 5:46am Reason for Referral Specialty Diagnoses / Procedures Referred By Contac t Referred To Contact Cardiology Diagnoses Chest pain, unspecified type Procedures CARDIAC STRESS TEST EXERCISE ONLY Jean Osborne MD [address] [place] [address] [place] [address] Referral ID Status Reason Start Date Expiration Date Visits Re quested Visits Authorized [id number] Open 10/13/2022 10/13/2023 1 1 Chief Complaint and Reason for Visit Chief Complaint blurry vision, heada george Additional Source Comments (unrecognized sect ion and content) No Status Records FoundNo Status Records FoundNo Status Records FoundNo Status Records FoundNo Status Records Found INFORMATION SOURCE (unrecogn ized section and content) DATE CREATED AUTHOR 05/05/2019 [facility] DATE CREATED AUTHOR AUTHOR'S ORGANIZ ATION 06/18/2023 [facility] DATE CREATED AUTHOR AUTHOR'S ORGANIZ ATION 03/16/[address] [facility] DATE CREATED AUTHOR AUTHOR'S ORGANIZ ATION 12/20/2024 [facility] DATE CREATED AUTHOR AUTHOR'S ORGANIZ ATION 12/25/2024 Ami pearson Reason for Visit (unrecogniz ed section and [...] low back pain with bilateral sciatica Chaparrita Tran, DO [address] [place] [address] [facility] [address] [place] [address] Referral ID Status Reason Start Date Expiration Date V isits Requested Visits Authorized [id number] Open Specialty Services Required 02/24/2022 02/24/2023 1 [...] (Given - Provid er: Chani Saenz RN) orphenadrine (NORFLEX) injection 60 mg (COMPLETED) 60 mg, IntraMUSCular, ONCE, 1 dose, On Wed01/16/22 at 1545 1537 (Given - Provid er: Chani Saenz RN) Scheduled Medication Order 10/11/2022 10/12/2022 10/13/2022 aspirin chewable tablet 324 mg (COMPLETED) 324 mg, Oral, ONCE, 1 dose, On Wed10/13/22 at 3174 0154 (Given - Provid er: Nick Elkins RN) Care Teams (unrecognized sec tion and content) Media Developer Relationship Specialty Start Date End Date Daljit Pedro, [address] [place] [address] PCP - General 08/11/14 Media Developer Relationship Specialty Start Date End Date Daljit Pedro, DO [address] [place] [address] PCP - General 08/11/14 Media Developer Relationship Specialty Start Date End Date Chaparrita Tran, DO [address] [place] [address] PCP - General Family Medicine 02/24/22 Media Developer Relationship Specialty Start Date End Date Chaparrita Tran DO [address] [place] [address] PCP - General Family Medicine 02/24/22 Media Developer Relationship Specialty Start Date End Date Chaparrita Tran DO [address] [facility] [place] [address] PCP - General Family Medicine 02/24/22 Media Developer Relationship Specialty Start Date End Date Chaparrita Tran DO [address] [place] [address] PCP - General Family Medicine 02/24/22 Media Developer Relationship Specialty Start Date End Date Chaparrita Tran DO [address] [place] [address] PCP - General Family Medicine 02/24/22 Team Status: Active Member Role Status Dates Chaparrita Tran MD Primary Care Provider Active Team Status: Inactive Member Role Status Dates Konstantin Khan DO Emergency Provider Active Chaparrita Tran MD Primary Care Provider Active Media Developer Relationship Specialty Start Date End Date Chaparrita Tran DO [address] [place] [address] PCP - General Family Medicine 02/24/22 Media Developer Relationship Specialty Start Date End Date Chaparrita Tran MD [address] [place] [place] [address] PCP - General Family Medicine 09/27/23 Chaparrita Tran MD [address] [place] [address] Referring Family Medicine 09/27/23 Media Developer Relationship Specialty Start Date End Date Chaparrita Tran MD [address] [place] [address] PCP - General Family Medicine 09/27/23 Chaparrita Tran MD [address] [place] [address] Referring Family Medicine 09/27/23 Media Developer Relationship Specialty Start Date End Date Chaparrita Tran DO [address] [place] [place] [address] PCP - General Family Medicine 02/24/22 Media Developer Relationship Specialty Start Date End Date Chaparrita Tran DO [address] [place] [address] PCP - General Family Medicine 02/24/22 Goals (unrecognized section and content) Goals may be documented in a n alternate section Source Comments (unrecognize d section and content) In the event this informatio n is protected by the Federal Confidentiality of Alcohol and Drug Abuse Patient Records regulations: The Federal rules restrict any use of the information to criminally investigate or prosecute any alcohol or drug abuse patient.[facility] the event this information is protected by the Federal Confidentiality of Alcohol and Drug Abuse Patient Records regulations: The Federal rules restrict any use of the information to criminally investigate or prosecute any alcohol or drug abuse patient.[facility] FOR RECORDS PERTAINING TO PATIENTS [...] BE BASED ON THE PRIMARY CLINICAL RECORDS. [facility] [employer] [facility]. provides no warranty or guarantee of the accuracy or completeness of information in this document.
--- NOTE | 2024-12-28 06:11 | ED_ITS ---
HPI - Anxiety General Chief Complaint: Anxiety Stated Complaint: anxiety Time Seen by Provider: 12/28/24 05:23 Source: patient Mode of arrival: walk-in Limitations: no limitations History of Present Illness HPI narrative: This 34-year-old male presents for evaluation of anxiety/panic attacks and states that he took his last Xanax that has been recently prescribed by his family physician yesterday. The patient states he woke up this morning and felt like he could not breathe. He felt like he was being choked. He states he was dreaming that he was unable to breathe and having a panic attack when he awakened. He states he paced around his house until he could tell that his neighbor had woken up and had his neighbor bring him to the emergency department. He states that he has had at least 30 panic attacks in the past several weeks. He states that they rarely get to the point where he has to come to the emergency department. He states he tries his behavioral modifications at home such as putting his face in a bowl of ice-he has a bowl that he calls his panic ball in his refrigerator. He states he tried these techniques tonight but his panic and anxiety did not resolve. He has recently been taking small pieces of his Xanax in an effort to try to make them last longer. He received 9.5 mg Xanax on 11/24 from this emergency department on 12/06 he received 20 0.25 mg Xanax from his family physician and on 12/19 he received an additional 20 0.25 mg Xanax from his family physician. He states he recently saw his family physician but was too embarrassed to tell her that he had taken all of his medications. He does have a counselor that he has seen for the past 13 years. The patient admits that he also has a history of OCD and is extremely obsessive about his cleaning routine at home. The patient states that a lot of these symptoms emanate from the fact that he was to a woman in [place] 12 years ago and she abruptly him while he was in the [facility]. 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 He states he is currently on disability. He states that the 3 things that make him severely anxious are 1) thinking about his routine and the routine ending 2) sleeping 3) thoughts of becoming excited or kurtis. 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 He has several possible piece tattoos on his wrist indicating this. He states he has also been diagnosed with borderline personality disorder and he has had Bipolar disorder mentioned in his charts. Is compliant with his Lexapro. He denies any drug or alcohol use but states that in the past when he lost his vision he drank almost on a daily basis for 30 days. He does not smoke cigarettes. He states he does not use any marijuana products because they are certain to induce a panic attack. He denies that he is suicidal or homicidal. He is very anxious with rapid pressured speech. He appears manic. Related Data Home Medications ?Medication ?Instructions ?Recorded ?Confirmed escitalopram oxalate 10 mg tablet 10 mg PO DAILY 09/2212/28/24 Previous Rx's ?Medication ?Instructions ?Recorded alprazolam 0.5 mg tablet (Xanax) 0.25 mg (1/2 x 0.5 mg ) PO ONCE PRN 11/24/24 panic attack(s) 3 days #3 tabs Allergies Allergy/AdvReac Type Severity Reaction Status Date / Time amoxicillin Allergy Severe Hives Verified 11/24/24 16:33 Review of Systems ROS Status of ROS 10 or more systems reviewed and unremark able except as noted in history and below PFSH PFSH Social History Little interest or pleasure in doing things: not at all Feeling down, depressed, or hopeless: not at all Exam Narrative Exam Narrative: Vital signs and Nursing Notes reviewed: Patient is afebrile with a normal pulse, normal blood pressure, he is not hypoxic with pulse ox of 97% on room air General: Awake, alert, oriented, anxious, well-groomed, cooperative HEENT: Normocephalic atraumatic, mucous membranes are moist and pink, eyes are clear, normal conjunctiva Chest: Lungs are clear to auscultation with good air entry, there is no wheezing rhonchi or rales appreciated no accessory muscle use, patient is speaking in complete sentences CVS: Regular rate and rhythm S1-S2, no murmurs rubs or gallops, pulses are brisk and equal bilaterally Extremities: Moving all extremities, no lower extremity tenderness or swelling noted, negative Homans' sign, pulses are brisk and equal bilaterally Skin: Normal in appearance without rash,pallor, petechiae or purpura Neuro: No focal deficits Psych: Rapid pressured speech, coherent thought process, admits to severe anxiety with compulsive thoughts of dying, appears manic, denies suicidal or homicidal ideation Constitutional Vital Signs, click to edit/add: Last Vital Signs Temp 98 F 12/28/24 05:25 Pulse 80 12/28/24 05:25 Resp 18 12/28/24 05:25 BP 129/89 12/28/24 05:25 Pulse Ox 97 12/28/24 05:25 O2 Del Method Room Air 12/28/24 05:25 Course Vital Signs Vital signs: Vital Signs Temperature 98 F 12/28/24 05:25 Pulse Rate 80 12/28/24 05:25 Respiratory Rate 18 12/28/24 05:25 Blood Pressure 129/89 12/28/24 05:25 Pulse Oximetry 97 12/28/24 05:25 Oxygen Delivery Method Room Air 12/28/24 05:25 Temperature 98 F 12/28/24 05:25 Pulse Rate 80 12/28/24 05:25 Respiratory Rate 18 12/28/24 05:25 Blood Pressure 129/89 12/28/24 05:25 Pulse Oximetry 97 12/28/24 05:25 Oxygen Delivery Method Room Air 12/28/24 05:25 MDM - Anxiety MDM Narrative Medical decision making narrative: This 34-year-old male presents for evaluation and requesting refills for his Xanax because he is having a panic attack. He has been receiving Xanax from the emergency department and his family physician but admits to at least 38 panic attacks during this period of time. My suspicion is that the patient is not diagnosed properly. He is also medicating himself outside of the usual treatment regimen for benzodiazepines. He is hiding his medication use from his family physician. He has a counselor that he has been seeing for the past 13 years. I explained my concerns with the patient mostly that I feel that he is likely misdiagnosed and has bipolar disorder in addition to his OCD and what he describes as borderline personality disorder. He is only currently on Lexapro which he is compliant with and taking Xanax to manage his other symptoms. I did agree to give him a dose of Xanax to prevent withdrawal. I discussed with him medical clearance in the emergency department and evaluation by P. He is not suicidal or homicidal but is exhibiting concerning symptoms. I explained to him that even if I can get him involved with a practitioner who can reevaluate him and potentially prescribe him something other than benzodiazepines, which in my opinion he is likely addicted to at this point it may help him with his psychiatric problems. Lab Data Labs: Lab Results 12/28/24 Range/Units 06:23 WBC 8.7 (4.0-11.0) 10^3/uL RBC 4.80 (4.70-6.10) 10^6/uL Hgb 14.5 (14.0-18.0) g/dL Hct 42.9 (42.0-54.0) % MCV 89.4 (80.0-94.0) fL MCH 30.2 (25.9-34.0) pg MCHC 33.8 (29.9-35.2) g/dL RDW 12.4 (11.0-15.0) % Plt Count 408 (150-450) 10^3/uL MPV 9.8 (9.5-13.5) fL Neut % (Auto) 46.3 (43.0-75.0) % Lymph % (Auto) 37.8 (20.5-60.0) % Collin % (Auto) 12.0 (1.7-12.0) % Eos % (Auto) 3.0 (0.9-7.0) % Baso % (Auto) 0.7 (0.2-2.0) % Neut # (Auto) 4.0 (1.4-6.5) 10^3/uL Lymph # (Auto) 3.3 (1.2-3.8) 10^3/uL Collin # (Auto) 1.0 H (0.3-0.8) 10^3/uL Eos # (Auto) 0.3 (0.0-0.7) 10^3/uL Baso # (Auto) 0.1 (0.0-0.1) 10^3/uL Abs Immat Gran (auto) 0.02 (0.00-0.03) 10^3/uL Imm/Tot Granulo (auto) 0.2 (0.0-0.5) % Discharge Plan Discharge Patient Disposition: Still a Patient
[2024-12-28 06:28] LABS: Hematocrit 42.9 % (42.0-54.0); Hemoglobin 14.5 g/dL (14.0-18.0); Immature Granulocytes Abs Auto 0.02 10^3/uL (0.00-0.03); Immature Granulocytes Pct Auto 0.2 % (0.0-0.5); Lymphocytes Absolute Auto 3.3 10^3/uL (1.2-3.8); Mean Corpuscular HGB Conc 33.8 g/dL (29.9-35.2); Mean Corpuscular Hemoglobin 30.2 pg (25.9-34.0); Mean Corpuscular Volume 89.4 fL (80.0-94.0); Platelet Count 408 10^3/uL (150-450); Red Blood Count 4.80 10^6/uL (4.70-6.10); White Blood Count 8.7 10^3/uL (4.0-11.0)
[2024-12-28] MEDS: ALPRAZOLAM 0.5 MG TABLET PO (06:28)
[2024-12-28 07:14] LABS: Alanine Aminotransferase 35 U/L (16-63); Albumin Globulin Ratio 1.3; Albumin Level 4.2 g/dL (3.4-5.0); Alkaline Phosphatase 46 U/L (46-116); Anion Gap 13.8; Aspartate Amino Transferase 21 U/L (15-37); Blood Urea Nitrogen 14.0 mg/dL (7.0-18.0); Calcium 9.4 mg/dL (8.5-10.1); Carbon Dioxide 28.9 mmol/L (21.0-32.0); Chloride 104 mmol/L (98-107); Estimated GFR (African America >60 (>=60 mL/min/1.73m^2); Estimated GFR (Non-African Ame >60 (>=60 mL/min/1.73m^2); Globulin 3.3 g/dL; Glucose 95 mg/dL (74-106); Potassium 3.7 mmol/L (3.5-5.1); Sodium 143 mmol/L (136-145); Total Protein 7.5 g/dL (6.4-8.2)
[2024-12-28 07:15] LABS: Cannabinoid Screen Urine POSITIVE (NEGATIVE); Methamphetamines Screen Urine NEGATIVE (NEGATIVE); Tricyclic Antidepressant Urine NEGATIVE (NEGATIVE)
[2024-12-28 07:27] LABS: Acetaminophen <2.0 ug/mL (10.0-30.0); Salicylate <2.8 mg/dL (<=19.9)
[2024-12-28 10:13] VITALS: BP 129/89
== END 2024-12-28 10:18 | disposition home or self-care (01) ==
PROVIDERS: Emergency Medicine; Emergency Provider Emergency Medicine; PCP Student in an Organized Health Care Education/Training Program
DX: F41.9 Anxiety disorder, unspecified (principal); Z79.899 Other long term (current) drug therapy; F42.9 Obsessive-compulsive disorder, unspecified; F84.0 Autistic disorder; F31.9 Bipolar disorder, unspecified
CPT/HCPCS: 36415; 80053; 80179; 80307; 80320; 80329; 85025; 99283